=== PATIENT | female | born 1975 | race Caucasian/White ===

== ENCOUNTER 2016-11-30 20:19 | Inpatient (IN) | payer MEDICARE, OTHER ==
[~2016-11-30] VITALS: Ht 170.2 cm; Wt 119.1 kg
[2016-11-30 21:57] LABS: ADD SCAN DIFF NO
[2016-11-30 21:58] LABS: ABNORMAL IP MESSAGE 1; HEMATOCRIT 42.7 % (37.0-47.0); HEMOGLOBIN 13.4 g/dl (12.0-16.0); MEAN CORPUSCULAR HEMOGLOBIN 28.5 pg (29.0-33.0); MEAN CORPUSCULAR HGB CONC 31.4 g/dl (32.0-37.0); MEAN CORPUSCULAR VOLUME 90.9 fl (82.0-101.0); PLATELET COUNT 579 10^3/UL (140-415); RED CELL DISTRIBUTION WIDTH 14.5 % (11.5-14.5); WHITE BLOOD COUNT 19.2 10^3/ul (4.8-10.8)
[2016-11-30 22:14] LABS: INR 0.89; PT RATIO 0.9
[2016-11-30 22:15] LABS: PARTIAL THROMBOPLASTIN TIME 27.9 Sec (25.0-35.0)
[2016-11-30 22:24] LABS: LYMPHOCYTES # 11.1 10^3/ul (0.8-2.9); MONOCYTE # 0.8 10^3/ul (0.3-0.9); NEUTROPHIL # 7.3 10^3/ul (1.6-7.5)
[2016-11-30 22:26] LABS: ALANINE AMINOTRANSFERASE 32 IU/L (13-69); ALBUMIN 4.4 g/dl (3.3-4.9); ALBUMIN/GLOBULIN RATIO 1.41; ALKALINE PHOSPHATASE 108 IU/L (42-121); ANION GAP 14 (8-16); ASPARTATE AMINO TRANSFERASE 22 IU/L (15-46); BILIRUBIN,INDIRECT 0.1 mg/dl (0-1.1); BILIRUBIN,TOTAL 0.1 mg/dl (0.2-1.3); BLOOD UREA NITROGEN 14 mg/dl (7-20); CALCIUM 9.7 mg/dl (8.4-10.2); CARBON DIOXIDE 36 mmol/L (21-31); CHLORIDE 95 mmol/L (97-110); CREATININE 0.68 mg/dl (0.44-1.00); GLUCOSE 76 mg/dl (70-220); POTASSIUM 3.3 mmol/L (3.5-5.1); SODIUM 142 mmol/L (135-144); TOTAL PROTEIN 7.5 g/dl (6.1-8.1)
[2016-11-30 22:45] LABS: TROPONIN-I < 0.012 ng/ml (0.00-0.12)
--- NOTE | 2016-11-30 22:45 | RADRPT ---
PROCEDURE: XR Chest AP portable CLINICAL INDICATION: Possible sepsis TECHNIQUE: An AP portable radiograph of the chest was submitted. COMPARISON: 05/15/2016 FINDINGS: Support Hardware: None Cardiovascular: The heart size is decreased is now normal with the pulmonary vasculature unremarkabl e. Lung Vazquez: The lung vazquez appear clear with no nodule, alveolar infiltrate, or interstitial promi nence evident. Pleural Spaces: No pneumothorax or pleural effusion is identified. Osseous Structures: The osseous structures appear intact. Soft Tissues: The soft tissues appear generous. IMPRESSION: 1. Since previous study, the heart size is decreased and is now normal with the pulmonary vasculatu re unremarkable. 2. The focal right upper lobe infiltrate is resolved of the lung vazquez now clear. Physician Kelsy Date Time Electronically viewed and signed by Philippe Patterson Physician on 11/30/2016 22:45 RH/
[2016-11-30] MEDS ORDERED: ONDANSETRON 4 MG INJ IV STA (22:55)
[2016-11-30] MEDS ORDERED: morphine 4 MG/ML VIAL IV STA (22:55)
[2016-12-01 00:13] LABS: ADD UMIC YES; UR BILIRUBIN (Dip) NEGATIVE (NEGATIVE); UR BLOOD (Dip) NEGATIVE (NEGATIVE); UR CLARITY CLEAR (CLEAR); UR COLOR YELLOW (YELLOW); UR GLUCOSE (Dip) NEGATIVE (NEGATIVE); UR KETONES (Dip) TRACE (NEGATIVE); UR LEUKOCYTE ESTERASE (Dip) NEGATIVE (NEGATIVE); UR NITRITE (Dip) POSITIVE (NEGATIVE); UR TOTAL PROTEIN (Dip) TRACE (NEGATIVE); UR UROBILINOGEN (Dip) 0.2 E.U./dL (0.1-1.0)
[2016-12-01] MEDS ORDERED: ENOX40DI14 SC (00:16)
[2016-12-01] MEDS ORDERED: PANT40TA4 PO (00:16)
[2016-12-01] MEDS ORDERED: HYDR2TAB15 PO (00:16)
[2016-12-01] MEDS ORDERED: ASPI325T4 PO (00:16)
[2016-12-01] MEDS ORDERED: METO25TA4 PO (00:16)
[2016-12-01] MEDS ORDERED: HYDR-906 PO (00:16)
[2016-12-01] MEDS ORDERED: LEVE100018 PO (00:16)
--- NOTE | 2016-12-01 00:17 | ERA ---
ER Documentation Chief Complaint Date/Time DATE: 12/01/16 TIME: 00:16 Chief Complaint pt referred from pcp for lab eval high wbc's HPI 41-year-old female referred by Dr. Guerrero showed elevated white count. No nausea no vomiting no chills. Patient says she has a burning on urination. No other current complaints. ROS All systems reviewed and are negative except as per history of present illness. Medications Home Meds No Active Prescriptions or Reported Meds Allergies Allergies: Coded Allergies: Sulfa (Sulfonamide Antibiotics) (Unverified Allergy, Unknown, rash/hives, 11/30/16) penicillin V (Unverified Allergy, Unknown, rash/ hives, 11/30/16) sulfamethoxazole (Unverified Allergy, Unknown, rash/hives, 11/30/16) tetracycline (Unverified Allergy, Unknown, rash/hives, 11/30/16) trimethoprim (Unverified Allergy, Unknown, rash/hives, 11/30/16) PMhx/Soc History of Surgery: Yes (cholecystectomy, splenectomy) Anesthesia Reaction: No Hx Neurological Disorder: Yes (Seizure) Hx Respiratory Disorders: Yes (asthma) Hx Cardiac Disorders: Yes (HTN) Hx Psychiatric Problems: Yes (Depression, anxiety, schizoprenia) Hx Alcohol Use: No Hx Substance Use: No (marijuana ) Hx Tobacco Use: No Smoking Status: Never smoker Physical Exam Vitals Vital Signs Date Time Temp Pulse Resp B/P Pulse Ox O2 Delivery O2 Flow Rate FiO2 11/30/16 23:26 86 17 130/75 96 Nasal Cannula 11/30/16 20:57 98.6 81 17 119/85 96 Physical Exam Const: [] Head: Atraumatic Eyes: Normal Conjunctiva ENT: Normal External Ears, Nose and Mouth. Neck: Full range of motion..~ No meningismus. Resp: Clear to auscultation bilaterally Cardio: Regular rate and rhythm, no murmurs Abd: Soft, non tender, non distended. Normal bowel sounds Skin: No petechiae or rashes Back: No midline or flank tenderness Ext: No cyanosis, or edema Neur: Awake and alert Psych: Normal Mood and Affect Result Diagram: 11/30/16212911/30/162129 Results 24 hrs Laboratory Tests Test 11/30/16 21:30 11/30/16 23:45 White Blood Count 19.210^3/ul Red Blood Count 4.7010^6/ul Hemoglobin 13.4g/dl Hematocrit 42.7% Mean Corpuscular Volume 90.9fl Mean Corpuscular Hemoglobin 28.5pg Mean Corpuscular Hemoglobin Concent 31.4g/dl Red Cell Distribution Width 14.5% Platelet Count 48608^3/UL Mean Platelet Volume 10.0fl Neutrophils % 38.0% Lymphocytes % 58.0% Monocytes % 4.0% Neutrophils # 7.310^3/ul Lymphocytes # 11.110^3/ul Monocytes # 0.810^3/ul Prothrombin Time 12.0Sec Prothrombin Time Ratio 0.9 INR International Normalized Ratio 0.89 Activated Partial Thromboplast Time 27.9Sec Sodium Level 142mmol/L Potassium Level 3.3mmol/L Chloride Level 95mmol/L Carbon Dioxide Level 36mmol/L Anion Gap 14 Blood Urea Nitrogen 14mg/dl Creatinine 0.68mg/dl Glucose Level 76mg/dl Lactic Acid Level 1.7mmol/L Calcium Level 9.7mg/dl Total Bilirubin 0.1mg/dl Direct Bilirubin 0.00mg/dl Indirect Bilirubin 0.1mg/dl Aspartate Amino Transf (AST/SGOT) 22IU/L Alanine Aminotransferase (ALT/SGPT) 32IU/L Alkaline Phosphatase 108IU/L Troponin I < 0.012ng/ml Total Protein 7.5g/dl Albumin 4.4g/dl Globulin 3.10g/dl Albumin/Globulin Ratio 1.41 Urine Color YELLOW Urine Clarity CLEAR Urine pH 6.5 Urine Specific Frostproof 1.010 Urine Ketones TRACE Urine Nitrite POSITIVE Urine Bilirubin NEGATIVE Urine Urobilinogen 0.2 E.U./dL Urine Leukocyte Esterase NEGATIVE Urine Microscopic RBC Pending Urine Microscopic WBC Pending Urine Hemoglobin NEGATIVE Urine Glucose NEGATIVE% Urine Total Protein TRACE Current Medications Medications (Trade) Dose Ordered Sig/Sarita Route PRN Reason Start Time Stop Time Status Last Admin Dose Admin Morphine Sulfate (morphine) 4 mg ONCE STAT IV 11/30/16 22:55 11/30/16 22:56 DC 11/30/16 23:04 Ondansetron HCl (Zofran Inj) 4 mg ONCE STAT IV 11/30/16 22:55 11/30/16 22:56 DC 11/30/16 23:04 Procedures/MDM EKG: Rate/Rhythm: [Normal Sinus Rhythm] QRS, ST, T-waves: [No changes consistent w/ acute ischemia] Impression: [No evidence of ischemia or arrhythmia] Chest X-ray 1V Interpreted by me: Soft Tissue: No acute abnormalities Bones: No acute abnormalities Mediastinum/Cardiac Silhouette/Lungs: [No acute abnormalities] Blood and urine cultures pending Medical decision-makin-year-old female with UTI and leukocytosis. Lactic acid is negative. Patient started on Levaquin. Admitted to Dr. Mendoza Departure Diagnosis: Primary Impression: Urinary tract infection Qualified Code: N30.00 - Acute cystitis without hematuria Additional Impression: Leukocytosis Qualified Code: D72.829 - Leukocytosis, unspecified type Condition: Serious YA PEDROZA Dec 01, 2016 00:17
[2016-12-01] MEDS ORDERED: LEVOFLOXACIN 500MG/D5W (PMX) 100 ML IVPB ONE (00:30)
[2016-12-01 00:33] LABS: UR BACTERIA MANY; UR SQUAMOUS EPITHELIAL CELL MODERATE; URINE RBCS 0-2 /HPF (0)
[2016-12-01 01:45] VITALS: BP 100/62; RESP 20
[2016-12-01 02:07] VITALS: Ht 170.2 cm; Wt 119.1 kg
[2016-12-01] MEDS ORDERED: HYDROCODONE/APAP (5/325) TAB PO PRN (03:00)
[2016-12-01] MEDS ORDERED: CEFTRIAXONE 1 GM/50 ML (PMX) 50 ML IVPB SCH (03:00)
[2016-12-01] MEDS ORDERED: ONDANSETRON 4 MG INJ IV PRN ×2 (03:00→19:00)
[2016-12-01] MEDS: SOD CHLORIDE 0.45% 1,000 ML IV SCH ×2 (03:07→23:00)
[2016-12-01] MEDS: HYDROmorphONE 1 MG/ML SYG IV PRN ×5 (03:08→22:23)
[2016-12-01 05:32] VITALS: BP 122/61; PULSE 77; RESP 18
[2016-12-01 08:16] VITALS: BP 116/77; RESP 18
--- NOTE | 2016-12-01 14:07 | HP ---
DATE OF ADMISSION: 12/01/2016 CHIEF COMPLAINT: Leucocytosis and generalized weakness. HISTORY OF PRESENT ILLNESS: The patient is a 41-year-old female with history of bipolar disorder, a sthma, history of rhabdomyolysis, non-ST elevation myocardial infarction and right foot drop and imp airments in self-care and mobility. The patient was recuperating in a nursing facility and noted to have generalized weakness and leukocytosis on routine labs and patient was sent for evaluation to [facility] [place] [facility] Room. The patient was noted to have white blood cells elevated to 19,2 00. Urinalysis was indicative of urinary tract infection. The patient was diagnosed with a urinary tract infection, was given Rocephin and Levaquin in the emergency room and admitted for further shelby luation and management. PAST MEDICAL HISTORY: Per HPI. PAST SURGICAL HISTORY: Status post cholecystectomy, status post splenectomy. FAMILY HISTORY: Noncontributory. SOCIAL HISTORY: Patient lives at a nursing facility. Currently does not abuse alcohol, drugs or to bacco. ALLERGIES: Patient is allergic to: 1. SULFONAMIDE ANTIBIOTICS. 2. PENICILLIN. 3. TETRACYCLINE. 4. BACTRIM. MEDICATIONS: Her current medication list is not available. Nursing facility is contacted to send joel lee medication list. REVIEW OF SYSTEMS: A 12-point review of systems is negative unless what mentioned in the HPI. The patient denies any nausea, vomiting. Denies any chest pain, denies any shortness of breath. PHYSICAL ASSESSMENT: GENERAL: Well-developed, obese female currently is lethargic, but easily arousable, alert and orien renetta x3. VITAL SIGNS: Temperature is 98.0, pulse is 95, blood pressure 116/77, respiratory rate 18, oxygen s aturation 96% on room air. HEENT: Head is atraumatic, normocephalic. Pupils equal, round, reactive to light and accommodation . Oral mucosa is pink and moist. NECK: Supple, no cervical lymphadenopathy, no thyromegaly. CHEST: Lungs clear bilaterally. There is no rhonchi, wheezes, rales noted. CARDIOVASCULAR: Normal S1, S2. No murmurs, gallops, clicks, rubs noted. ABDOMEN: Protuberant, soft, nondistended, nontender. Bowel sounds present. No guarding. EXTREMITIES: No edema, clubbing, cyanosis. Pulses equal bilaterally 2+. SKIN: There is no rash, petechiae noted. NEUROLOGIC: Patient is awake, alert and oriented x3. No focal deficits noted. LABORATORY DATA: On admission, CBC: White blood cells 19.2, hemoglobin 13.3, hematocrit 42.7, plat elets 579. Chemistry: Sodium is 142, potassium 3.3, chloride 95, carbon dioxide 36, anion gap 14, BUN 14, creatinine 0.68, glucose 76. Lactic acid is 1.7, AST is 22, ALT is 32, alkaline phosphate i s 108. Troponin is less than 0.012. PT is 12.0, INR is 0.89, APTT is 27.9. ASSESSMENT AND PLAN: 1. Urinary tract infection per UA, continue antibiotics. Follow up on urine culture. We will obta in urine and blood cultures if not done in the emergency room. 2. Systemic inflammatory response syndrome with leukocytosis secondary to urinary tract infection. 3. Bipolar disorder. 4. History of asthma. 5. History of right foot drop, patient currently was able to ambulate using walker at the [facility]. Patient also had a chest x-ray which improved compared to previous studies. Heart size is decreased and now normal with the pulmonary vasculature unremarkable. The focal right upper lobe i nfiltrate is resolved and now clear. I am going to continue patient on Levaquin. Follow up on urin e culture, Lovenox for deep venous thrombosis prophylaxis and Pepcid for peptic ulcer disease prophy laxis. We will obtain home medication list and resume the patient's home medication. Further recom mendations based on clinical course. Plan of care discussed with Dr. Walden. Dictated By: VINICIO HOUSTON INSURANCE AND FINANCIAL SERVICES AGENT for PRANEETH WALDEN MD SR/NTS Conf#: [id number] DID#: [id number]
[2016-12-01] MEDS ORDERED: CYAN100080 PO (15:44)
[2016-12-01] MEDS ORDERED: OMEP40CA6 PO (15:45)
[2016-12-01] MEDS ORDERED: MORP60TA37 PO (15:48)
[2016-12-01] MEDS ORDERED: MORP-58 PO (15:50)
[2016-12-01] MEDS ORDERED: BUSP15TA3 PO (15:55)
[2016-12-01] MEDS ORDERED: ESCI20TA PO (15:56)
[2016-12-01] MEDS ORDERED: FURO40SO PO (15:56)
[2016-12-01] MEDS ORDERED: POTA20TA96 PO (15:58)
[2016-12-01] MEDS ORDERED: ONDA-43 PO (16:00)
[2016-12-01] MEDS ORDERED: RISP4TAB2 PO (18:37)
[2016-12-01] MEDS: LEVETIRACETAM 500 MG TAB PO SCH (20:11)
[2016-12-01] MEDS: morphine (ER) 30 MG TAB PO SCH (20:12)
[2016-12-01] MEDS: METOPROLOL 25 MG TAB PO SCH (20:12)
[2016-12-01 20:23] VITALS: BP 130/67; RESP 20
[2016-12-01] MEDS: ALPRAZOLAM 0.5 MG TAB PO PRN (21:00)
[2016-12-01] MEDS ORDERED: LEVETIRACETAM 500 MG TAB PO SCH (21:00)
[2016-12-02] MEDS: LEVOFLOXACIN 500MG/D5W (PMX) 100 ML IVPB SCH (00:31)
[2016-12-02] MEDS: HYDROmorphONE 1 MG/ML SYG IV PRN ×5 (02:55→23:24)
[2016-12-02 05:53] LABS: ADD SCAN DIFF NO
[2016-12-02 05:59] LABS: ABNORMAL IP MESSAGE 1; HEMATOCRIT 41.3 % (37.0-47.0); HEMOGLOBIN 12.8 g/dl (12.0-16.0); MEAN CORPUSCULAR HEMOGLOBIN 28.3 pg (29.0-33.0); MEAN CORPUSCULAR VOLUME 91.2 fl (82.0-101.0); MEAN PLATELET VOLUME 10.3 fl (7.4-10.4); PLATELET COUNT 566 10^3/UL (140-415); RED BLOOD COUNT 4.53 10^6/ul (4.20-5.40); RED CELL DISTRIBUTION WIDTH 14.6 % (11.5-14.5); WHITE BLOOD COUNT 17.6 10^3/ul (4.8-10.8)
[2016-12-02 06:36] LABS: CREATININE 0.54 mg/dl (0.44-1.00); POTASSIUM 3.6 mmol/L (3.5-5.1)
[2016-12-02 08:09] VITALS: BP 115/60; RESP 20
[2016-12-02] MEDS: ASPIRIN 325 MG TAB PO SCH (09:05)
[2016-12-02] MEDS: LEVETIRACETAM 500 MG TAB PO SCH ×2 (09:05→20:58)
[2016-12-02] MEDS: morphine (ER) 30 MG TAB PO SCH ×2 (09:06→21:00)
[2016-12-02] MEDS: FAMOTIDINE 20 MG TAB PO SCH (09:06)
[2016-12-02] MEDS: METOPROLOL 25 MG TAB PO SCH ×2 (09:07→21:01)
[2016-12-02] MEDS: ENOXAPARIN 30 MG/0.3 ML SYG SC SCH (09:28)
[2016-12-02 10:23] LABS: EOSINOPHILS # 0.5 10^3/ul (0.0-0.5); MONOCYTE # 1.4 10^3/ul (0.3-0.9); NEUTROPHIL # 9.7 10^3/ul (1.6-7.5)
--- NOTE | 2016-12-02 15:25 | PN ---
Date/Time of Note Date/Time of Note DATE: 12/02/16 TIME: 15:18 Assessment/Plan VTE Prophylaxis VTE Prophylaxis Intervention: SCD's Lines/Catheters IV Catheter Type (from Nrs): Saline Lock Assessment/Plan Chief Complaint/Hosp Course Patient's complains of generalized pain, denies any nausea vomiting. ASSESSMENT AND PLAN: - Urinary tract infection per UA, continue Levaquin, follow up on final urine culture. - Systemic inflammatory response syndrome with leukocytosis secondary to urinary tract infection. - Seizure disorder continue Keppra. - Bipolar disorder. Continue BuSpar. Further recommendations based on clinical course. Plan of care discussed with Dr. Walden. Problems: Exam/Review of Systems Vital Signs Vitals Vital Signs Date Time Temp Pulse Resp B/P Pulse Ox O2 Delivery O2 Flow Rate FiO2 12/02/16 08:09 98.2 71 20 115/60 98 12/01/16 05:32 Room Air 12/01/16 00:50 2.0 Intake and Output 12/01/16 12/01/16 12/02/16 15:00 23:00 07:00 Intake Total 1500 ml 2200 ml Output Total 1100 ml 2000 ml Balance 400 ml 200 ml Exam Constitutional: alert, oriented Head: normocephalic Neck: supple Respiratory: normal air movement Cardiovascular: nl pulses Gastrointestinal: non-tender, soft Musculoskeletal: nl gait and stance Extremities: normal pulses Results Result Diagram: 12/02/16 0445 12/02/16 0445 Results 24 hrs Laboratory Tests Test 12/02/16 04:45 White Blood Count 17.6 H Red Blood Count 4.53 Hemoglobin 12.8 Hematocrit 41.3 Mean Corpuscular Volume 91.2 Mean Corpuscular Hemoglobin 28.3 L Mean Corpuscular Hemoglobin Concent 31.0 L Red Cell Distribution Width 14.6 H Platelet Count 566 H Mean Platelet Volume 10.3 Neutrophils % 55.0 Lymphocytes % 34.0 Monocytes % 8.0 Eosinophils % 3.0 Neutrophils # 9.7 H Lymphocytes # 6.0 H Monocytes # 1.4 H Eosinophils # 0.5 Sodium Level 143 Potassium Level 3.6 Chloride Level 104 Carbon Dioxide Level 31 Anion Gap 12 Blood Urea Nitrogen 10 Creatinine 0.54 Glucose Level 91 Calcium Level 9.0 Magnesium Level 2.0 Medications Medications Current Medications Sodium Chloride (1/2 NS) 1,000 ml @ 50 mls/hr Q20H IV Last administered on 03:07; Admin Dose 50 MLS/HR; Start 12/01/16 at 03:00 Hydromorphone HCl (Dilaudid) 0.5 mg Q4H PRN IV PAIN Last administered on 11:14; Admin Dose 0.5 MG; Start 12/01/16 at 03:00 Acetaminophen/ Hydrocodone Bitart 1 tab 1 tab Q4H PRN PO MODERATE PAIN LEVEL 4- 6 Last administered on 12/01/16 05:30; Admin Dose 1 TAB; Start 12/01/16 at 03: 00 Levofloxacin/ Dextrose (Levaquin 500mg/ D5W 100 ml (Pmx)) 100 ml @ 100 mls/hr Q24H IVPB Last administered on 12/02/16 00:31; Admin Dose 100 MLS/HR; Start at 01:00 Enoxaparin Sodium (Lovenox) 30 mg DAILY SC Last administered on 12/02/16 09:28 ; Admin Dose 30 MG; Start 12/02/16 at 09:00 Famotidine (Pepcid) 20 mg DAILY PO Last administered on 12/02/16 09:06; Admin Dose 20 MG; Start 12/02/16 at 09:00 Levetiracetam (Keppra) 1,500 mg BID PO Last administered on 12/02/16 09:05; Admin Dose 1,500 MG; Start 12/01/16 at 21:00 Aspirin (Aspirin) 325 mg DAILY PO Last administered on 12/02/16 09:05; Admin Dose 325 MG; Start 12/02/16 at 09:00 Metoprolol Tartrate (Lopressor) 12.5 mg BID PO Last administered on 12/02/16 09:07; Admin Dose 12.5 MG; Start 12/01/16 at 21:00 Morphine Sulfate (Ms Contin (Er)) 60 mg BID PO Last administered on 12/02/16 09:06; Admin Dose 60 MG; Start 12/01/16 at 21:00 Ondansetron HCl (Zofran Inj) 4 mg Q4H PRN IV NAUSEA AND/OR VOMITING; Start at 19:00 Alprazolam (Xanax) 0.5 mg HS PRN PO ANXIETY Last administered on 12/01/16t 21: 00; Admin Dose 0.5 MG; Start 12/01/16 at 19:00 VINICIO HOUSTON Dec 02, 2016 15:25
[2016-12-02] MEDS: BUSPIRONE 10 MG TAB PO SCH ×2 (16:45→20:59)
[2016-12-02] MEDS: ESCITALOPRAM 10 MG TAB PO SCH (16:46)
[2016-12-02] MEDS: SOD CHLORIDE 0.45% 1,000 ML IV SCH ×2 (19:04→19:55)
[2016-12-02] MEDS ORDERED: BUSPIRONE 5 MG TAB PO SCH (21:00)
[2016-12-02 21:05] VITALS: BP 127/75; RESP 20
[2016-12-02] MEDS: ALPRAZOLAM 0.5 MG TAB PO PRN (21:33)
[2016-12-03] MEDS: LEVOFLOXACIN 500MG/D5W (PMX) 100 ML IVPB SCH (00:48)
[2016-12-03] MEDS: HYDROmorphONE 1 MG/ML SYG IV PRN ×6 (03:14→23:17)
[2016-12-03 05:11] LABS: ADD SCAN DIFF NO
[2016-12-03 05:21] LABS: ABNORMAL IP MESSAGE 1; BASOPHIL # 0.1 10^3/ul (0.0-0.1); BASOPHILS % 0.4 % (0.0-2.0); EOSINOPHILS # 0.4 10^3/ul (0.0-0.5); EOSINOPHILS % 1.9 % (0.0-7.0); HEMATOCRIT 40.3 % (37.0-47.0); HEMOGLOBIN 12.8 g/dl (12.0-16.0); LYMPHOCYTES # 5.1 10^3/ul (0.8-2.9); LYMPHOCYTES % 27.8 % (15.0-51.0); MEAN CORPUSCULAR HEMOGLOBIN 28.7 pg (29.0-33.0); MEAN CORPUSCULAR HGB CONC 31.8 g/dl (32.0-37.0); MEAN CORPUSCULAR VOLUME 90.4 fl (82.0-101.0); MONOCYTE # 1.4 10^3/ul (0.3-0.9); MONOCYTES % 7.8 % (0.0-11.0); NEUTROPHIL # 11.2 10^3/ul (1.6-7.5); NEUTROPHILS % 61.7 % (39.0-77.0); NUCLEATED RED BLOOD CELLS% 0.1 /100WBC (0.0-0.0); PLATELET COUNT 583 10^3/UL (140-415); RED BLOOD COUNT 4.46 10^6/ul (4.20-5.40); RED CELL DISTRIBUTION WIDTH 14.4 % (11.5-14.5); WHITE BLOOD COUNT 18.2 10^3/ul (4.8-10.8)
[2016-12-03 05:52] LABS: CALCIUM 8.9 mg/dl (8.4-10.2); CREATININE 0.61 mg/dl (0.44-1.00)
[2016-12-03 08:33] VITALS: BP 112/57; RESP 18
[2016-12-03] MEDS: BUSPIRONE 10 MG TAB PO SCH ×3 (08:52→20:54)
[2016-12-03] MEDS: LEVETIRACETAM 500 MG TAB PO SCH ×2 (08:52→20:53)
[2016-12-03] MEDS: ASPIRIN 325 MG TAB PO SCH (08:52)
[2016-12-03] MEDS: ESCITALOPRAM 10 MG TAB PO SCH (08:53)
[2016-12-03] MEDS: METOPROLOL 25 MG TAB PO SCH ×2 (08:54→20:53)
[2016-12-03] MEDS: morphine (ER) 30 MG TAB PO SCH ×2 (08:54→20:54)
[2016-12-03] MEDS: FAMOTIDINE 20 MG TAB PO SCH (08:54)
[2016-12-03] MEDS: ENOXAPARIN 30 MG/0.3 ML SYG SC SCH (09:21)
[2016-12-03] MEDS: SOD CHLORIDE 0.45% 1,000 ML IV SCH (14:00)
--- NOTE | 2016-12-03 15:08 | PN ---
Date/Time of Note Date/Time of Note DATE: 12/03/16 TIME: 15:02 Assessment/Plan VTE Prophylaxis VTE Prophylaxis Intervention: other Lines/Catheters [facility] Peripheral IV Urinary Cath still in place: No Assessment/Plan Assessment/Plan - Urinary tract infection per UA, continue Levaquin, follow up on final urine culture. - Systemic inflammatory response syndrome with leukocytosis secondary to urinary tract infection. - Seizure disorder continue Keppra. - seizure precaution - Bipolar disorder. Continue BuSpar. Further recommendations based on clinical course. Plan of care discussed with Dr. Walden. Subjective 24 Hr Interval Summary Free Text/Dictation afebrile, feels better, possible discharge tomorrow. dw staff Constitutional: improved Cardiovascular: no complaints Gastrointestinal: no complaints Genitourinary: no complaints Musculoskeletal: no complaints Exam/Review of Systems Vital Signs Vitals Vital Signs Date Time Temp Pulse Resp B/P Pulse Ox O2 Delivery O2 Flow Rate FiO2 12/03/16 08:33 98.2 60 18 112/57 96 12/01/16 05:32 Room Air 12/01/16 00:50 2.0 Intake and Output 12/02/16 12/02/16 12/03/16 15:00 23:00 07:00 Intake Total 1650 ml 1220 ml Output Total 1500 ml 1400 ml Balance 150 ml -180 ml Exam Constitutional: alert Respiratory: clear to auscultation, normal air movement Cardiovascular: nl pulses, regular rate and rhythm Gastrointestinal: non-tender, soft Musculoskeletal: nl extremities to inspection Neurological: nl speech Results Result Diagram: 12/03/16 0429 12/03/16 0429 Results 24 hrs Laboratory Tests Test 12/03/16 04:29 White Blood Count 18.2 H Red Blood Count 4.46 Hemoglobin 12.8 Hematocrit 40.3 Mean Corpuscular Volume 90.4 Mean Corpuscular Hemoglobin 28.7 L Mean Corpuscular Hemoglobin Concent 31.8 L Red Cell Distribution Width 14.4 Platelet Count 583 H Mean Platelet Volume 10.0 Neutrophils % 61.7 Lymphocytes % 27.8 Monocytes % 7.8 Eosinophils % 1.9 Basophils % 0.4 Nucleated Red Blood Cells % 0.1 H Neutrophils # 11.2 H Lymphocytes # 5.1 H Monocytes # 1.4 H Eosinophils # 0.4 Basophils # 0.1 Nucleated Red Blood Cells # 0.0 Sodium Level 144 Potassium Level 4.0 Chloride Level 107 Carbon Dioxide Level 29 Anion Gap 12 Blood Urea Nitrogen 11 Creatinine 0.61 Glucose Level 94 Calcium Level 8.9 Medications Medications Current Medications Sodium Chloride (1/2 NS) 1,000 ml @ 50 mls/hr Q20H IV Last administered on 19:55; Admin Dose 50 MLS/HR; Start 12/01/16 at 03:00 Hydromorphone HCl (Dilaudid) 0.5 mg Q4H PRN IV PAIN Last administered on 11:15; Admin Dose 0.5 MG; Start 12/01/16 at 03:00 Acetaminophen/ Hydrocodone Bitart 1 tab 1 tab Q4H PRN PO MODERATE PAIN LEVEL 4- 6 Last administered on 12/01/16 05:30; Admin Dose 1 TAB; Start 12/01/16 at 03: 00 Levofloxacin/ Dextrose (Levaquin 500mg/ D5W 100 ml (Pmx)) 100 ml @ 100 mls/hr Q24H IVPB Last administered on 12/03/16 00:48; Admin Dose 100 MLS/HR; Start at 01:00 Enoxaparin Sodium (Lovenox) 30 mg DAILY SC Last administered on 12/03/16 09:21 ; Admin Dose 30 MG; Start 12/02/16 at 09:00 Famotidine (Pepcid) 20 mg DAILY PO Last administered on 12/03/16 08:54; Admin Dose 20 MG; Start 12/02/16 at 09:00 Levetiracetam (Keppra) 1,500 mg BID PO Last administered on 12/03/16 08:52; Admin Dose 1,500 MG; Start 12/01/16 at 21:00 Aspirin (Aspirin) 325 mg DAILY PO Last administered on 12/03/16 08:52; Admin Dose 325 MG; Start 12/02/16 at 09:00 Metoprolol Tartrate (Lopressor) 12.5 mg BID PO Last administered on 12/03/16 08:54; Admin Dose 12.5 MG; Start 12/01/16 at 21:00 Morphine Sulfate (Ms Contin (Er)) 60 mg BID PO Last administered on 12/03/16 08:54; Admin Dose 60 MG; Start 12/01/16 at 21:00 Ondansetron HCl (Zofran Inj) 4 mg Q4H PRN IV NAUSEA AND/OR VOMITING; Start at 19:00 Alprazolam (Xanax) 0.5 mg HS PRN PO ANXIETY Last administered on 12/02/16 21: 33; Admin Dose 0.5 MG; Start 12/01/16 at 19:00 Escitalopram Oxalate (Lexapro) 20 mg DAILY PO Last administered on 12/03/16 08 :53; Admin Dose 20 MG; Start 12/02/16 at 16:00 Buspirone HCl (Buspar) 20 mg TID PO Last administered on 12/03/16 12:45; Admin Dose 20 MG; Start 12/02/16 at 16:14 ANABELLE RAGLAND Dec 03, 2016 15:08
[2016-12-03] MEDS: ALPRAZOLAM 0.5 MG TAB PO PRN (20:56)
[2016-12-03 21:14] VITALS: BP 132/77; RESP 20
[2016-12-04] MEDS: LEVOFLOXACIN 500MG/D5W (PMX) 100 ML IVPB SCH (01:23)
[2016-12-04] MEDS: HYDROmorphONE 1 MG/ML SYG IV PRN ×5 (03:16→19:43)
[2016-12-04 05:04] LABS: ADD SCAN DIFF NO
[2016-12-04 05:29] LABS: ABNORMAL IP MESSAGE 1; HEMATOCRIT 39.7 % (37.0-47.0); HEMOGLOBIN 12.8 g/dl (12.0-16.0); MEAN CORPUSCULAR HGB CONC 32.2 g/dl (32.0-37.0); MEAN CORPUSCULAR VOLUME 89.8 fl (82.0-101.0); MEAN PLATELET VOLUME 10.1 fl (7.4-10.4); PLATELET COUNT 590 10^3/UL (140-415); RED BLOOD COUNT 4.42 10^6/ul (4.20-5.40); RED CELL DISTRIBUTION WIDTH 14.3 % (11.5-14.5); WHITE BLOOD COUNT 18.8 10^3/ul (4.8-10.8)
[2016-12-04 05:44] LABS: CALCIUM 9.1 mg/dl (8.4-10.2); CREATININE 0.63 mg/dl (0.44-1.00); POTASSIUM 4.7 mmol/L (3.5-5.1)
[2016-12-04] MEDS: SOD CHLORIDE 0.45% 1,000 ML IV SCH (07:00)
[2016-12-04 07:25] VITALS: BP 140/83; RESP 20
[2016-12-04 08:04] LABS: BASOPHIL # 0.2 10^3/ul (0.0-0.1); EOSINOPHILS # 0.8 10^3/ul (0.0-0.5); LYMPHOCYTES # 6.4 10^3/ul (0.8-2.9); MONOCYTE # 1.7 10^3/ul (0.3-0.9); NEUTROPHIL # 9.8 10^3/ul (1.6-7.5)
[2016-12-04] MEDS: ASPIRIN 325 MG TAB PO SCH (09:06)
[2016-12-04] MEDS: ESCITALOPRAM 10 MG TAB PO SCH (09:07)
[2016-12-04] MEDS: LEVETIRACETAM 500 MG TAB PO SCH ×2 (09:07→20:22)
[2016-12-04] MEDS: BUSPIRONE 10 MG TAB PO SCH ×3 (09:07→20:21)
[2016-12-04] MEDS: FAMOTIDINE 20 MG TAB PO SCH (09:07)
[2016-12-04] MEDS: morphine (ER) 30 MG TAB PO SCH ×2 (09:07→20:21)
[2016-12-04] MEDS: METOPROLOL 25 MG TAB PO SCH ×2 (09:08→20:21)
[2016-12-04] MEDS: ENOXAPARIN 30 MG/0.3 ML SYG SC SCH (09:12)
[2016-12-04 19:23] VITALS: BP 136/76; RESP 18
[2016-12-04] MEDS: ALPRAZOLAM 0.5 MG TAB PO PRN (20:23)
--- NOTE | 2016-12-05 07:02 | DS ---
DATE OF ADMISSION: 12/02/2016 DATE OF DISCHARGE: 12/04/2016 FINAL DIAGNOSES: 1. Urinary tract infection. 2. Systemic inflammatory response syndrome with leukocytosis secondary to urinary tract infection. 3. Seizure disorder. 4. Bipolar disorder. 5. History of right foot drop. BRIEF HISTORY: The patient is a 41-year-old female with history of bipolar disorder, asthma, histor y of rhabdomyolsis, non-ST elevation myocardial infarction, and right foot drop with impairment in s elf-care and mobility. The patient was recuperating at longterm facility and was noted to fisher ve increased generalized weakness and leukocytosis. On routine labs, the patient's white blood cell s were elevated from 19,000 to 100. The patient was sent for evaluation to [facility]. On evaluation, the patient was noted to have urinary tract infection with urine culture posit williams for E. coli. The patient was given Rocephin and Levaquin. The patient's condition improved. T he patient did not have any fever. The patient was discharged to longterm facility. CONDITION ON DISCHARGE: Hemodynamically stable. ACTIVITY: As patient tolerates. DIET: 2 g sodium, low fat, low cholesterol diet. DISCHARGE MEDICATIONS: 1. Xanax at bedtime p.r.n. for insomnia. 2. Aspirin daily. 3. BuSpar. 4. Lovenox, 5. Lexapro. 6. Pepcid. 7. Taft p.r.n. for pain. 8. Dilaudid 1 mg p.o. q. 3 hours p.r.n. for pain. 9. Keppra 1500 mg p.o. b.i.d. 10. Metoprolol 12.5 mg p.o. b.i.d. 11. MS Contin 60 mg p.o. b.i.d. 12. Zofran 4 mg p.o. p.r.n. for nausea. 13. Vitamin B12. 14. Levaquin 500 mg 1 tablet p.o. daily for 4 more days. Interdisciplinary plan of care was established for this patient. Plan of care was discussed with Dr Michelle Theodore. Dictated By: VINICIO HOUSTON SPOOL FIXER for PRANEETH THEODORE MD, SR/NTS Conf#: [id number] [facility]#: [id number]
== END 2016-12-04 22:00 | DRG 690 ==
LOC: E/R 20:19 → MS1 12-01 00:15 → OBSVTOIN 12-02 15:17
PROVIDERS: ADMIT Internal Medicine; ATTEND Internal Medicine
DX: N39.0 Urinary tract infection, site not specified (principal); B96.20 Unspecified Escherichia coli [E. coli] as the cause of diseases classified elsewhere; F31.9 Bipolar disorder, unspecified; G40.909 Epilepsy, unspecified, not intractable, without status epilepticus; I25.2 Old myocardial infarction
CPT/HCPCS: 36415; 71010; 80048; 80053; 81001; 83605; 83735; 84484; 85025; 85610; 85730; 87040; 87081; 87086; 93005; 96374; 96375; G0378; J1170; J1650; J1956; J2270; J2405

== ENCOUNTER 2017-05-22 14:29 | Emergency (ER) | payer MEDICARE, OTHER ==
[~2017-05-22] VITALS: Ht 167.6 cm; Wt 110.0 kg
[~2017-05-22 14:29] MED LIST: ASPI325T4 PO; BUSP15TA3 PO; CYAN100080 PO; ENOX40DI14 SC; ESCI20TA PO; FURO40SO PO; HYDR-906 PO; HYDR2TAB36 PO; LEVE100018 PO; METO25TA4 PO; MORP-58 PO; MORP60TA37 PO; OMEP40CA6 PO; ONDA-43 PO; PANT40TA4 PO; POTA20TA96 PO; RISP4TAB2 PO
[2017-05-22 14:37] VITALS: Ht 167.6 cm; Wt 110.0 kg
[2017-05-22] MEDS ORDERED: HYDROmorphONE 1 MG/ML SYG IV STA ×2 (14:48→18:45)
[2017-05-22] MEDS ORDERED: SOD CHLORIDE 0.9% 1,000 ML IV STA (14:48)
[2017-05-22] MEDS ORDERED: ONDANSETRON 4 MG INJ IV STA (14:48)
[2017-05-22 15:13] LABS: ABNORMAL IP MESSAGE 1; HEMATOCRIT 42.9 % (37.0-47.0); HEMOGLOBIN 13.3 g/dl (12.0-16.0); MEAN CORPUSCULAR HEMOGLOBIN 27.4 pg (29.0-33.0); MEAN CORPUSCULAR VOLUME 88.5 fl (82.0-101.0); MEAN PLATELET VOLUME 9.6 fl (7.4-10.4); PLATELET COUNT 688 10^3/UL (140-415); RED BLOOD COUNT 4.85 10^6/ul (4.20-5.40); RED CELL DISTRIBUTION WIDTH 14.9 % (11.5-14.5); WHITE BLOOD COUNT 19.3 10^3/ul (4.8-10.8)
[2017-05-22 15:15] LABS: POSITIVE DIFF @See below
[2017-05-22 15:40] LABS: ALBUMIN 4.3 g/dl (3.3-4.9); ALBUMIN/GLOBULIN RATIO 1.16; CALCIUM 9.5 mg/dl (8.4-10.2); CREATININE 0.65 mg/dl (0.44-1.00); POTASSIUM 3.7 mmol/L (3.5-5.1)
[2017-05-22 15:41] LABS: EOSINOPHILS % (M) 1 % (0-7); GIANT THROMBO% (M) 1 % (0-0); MONOCYTES % (M) 2 % (0-11); PLATELET ESTIMATE INCREASED
[2017-05-22] MEDS ORDERED: IOHEXOL 300MG/ML 150 ML BTL ONE (19:55)
[2017-05-22] MEDS ORDERED: SOD CHLORIDE 0.9% 100 ML ONE (19:55)
--- NOTE | 2017-05-22 19:55 | ERD ---
ER Documentation Chief Complaint Chief Complaint MID ABD PAIN SINCE TODAY W/ DIARRHEA HPI This is a 42-year-old female who was sent by Dr. Bard tsai for evaluation.. The patient states she has had diffuse lower abdominal cramps off and on for the past 2-3 days with nausea vomiting diarrhea. The vomiting and diarrhea is nonbilious and nonbloody. The patient states she has had no fever. She said the symptoms started out very mild on day 1 and have gotten worse today. No dysuria hematuria no back pain pain is crampy with no radiation and occasional sharp pain. ROS All systems reviewed and are negative except as per history of present illness. Medications Home Meds Reported Medications Risperidone* (Risperidone*) 4 Mg Tablet, 5 MG PO BID, TAB 12/01/16 Ondansetron Hcl* (Zofran*) 4 Mg Tab, 4 MG PO Q4H Y for NAUSEA AND OR VOMITING, TAB 12/01/16 Potassium Chloride* (Potassium Chloride*) 20 Meq Tablet.er, 20 MEQ PO DAILY, TAB.SA 12/01/16 Furosemide* (Furosemide*) 40 Mg/5 Ml Solution, 40 MG PO DAILY, #150 ML 12/01/16 Escitalopram Oxalate* (Lexapro*) 20 Mg Tablet, 20 MG PO DAILY, #30 TAB 12/01/16 Buspirone Hcl* (Buspirone Hcl*) 15 Mg Tablet, 30 MG PO TID, TAB 12/01/16 Morphine Sulfate* (Oramorph SR*) 30 Mg Tablet.sa, 30 MG PO Q8, TAB.SA 12/01/16 Morphine Sulfate* (Ms Contin*) 60 Mg Tablet.sa, 60 MG PO Q12, TAB.SA 12/01/16 Omeprazole* (Omeprazole*) 40 Mg Capsule.dr, 40 MG PO DAILY, #30 CAP 12/01/16 Cyanocobalamin* (Vitamin B-12*) 1,000 Mcg Tablet.sa, 1000 MCG PO DAILY, TAB 12/01/16 Pantoprazole* (Pantoprazole*) 40 Mg Tablet.dr, 40 MG PO DAILY, TAB 12/01/16 Metoprolol Tartrate* (Lopressor*) 25 Mg Tablet, 12.5 MG PO BID, #60 TAB 12/01/16 Levetiracetam* (Keppra*) 1,000 Mg Tablet, 1000 MG PO BID, TAB 12/01/16 Hydromorphone Hcl* (Dilaudid*) Unknown Strength Tablet, 1 MG PO Q3H Y for PAIN, TAB 12/01/16 Hydrocodone/Acetaminophen ([place] 5-325 Tablet) Unknown Strength Tablet, 0 PO, TAB 12/01/16 Enoxaparin Sodium* (Lovenox*) 40 Mg/0.4 Ml Syringe, 40 MG SC DAILY, SYR 12/01/16 Aspirin* (Aspirin*) 325 Mg Tablet, 325 MG PO DAILY, TAB 12/01/16 Allergies Allergies: Coded Allergies: Sulfa (Sulfonamide Antibiotics) (Unverified Allergy, Unknown, rash/hives, 05/22/17) penicillin V (Unverified Allergy, Unknown, rash/ hives, 05/22/17) sulfamethoxazole (Unverified Allergy, Unknown, rash/hives, 05/22/17) tetracycline (Unverified Allergy, Unknown, rash/hives, 05/22/17) trimethoprim (Unverified Allergy, Unknown, rash/hives, 05/22/17) PMhx/Soc History of Surgery: Yes (splenectomy, cholecystectomy) Anesthesia Reaction: No Hx Neurological Disorder: Yes ( seizure) Hx Respiratory Disorders: Yes (asthma) Hx Cardiac Disorders: Yes (HTN) Hx Psychiatric Problems: Yes (Bipolar) Hx Alcohol Use: No Hx Substance Use: No Hx Tobacco Use: No Smoking Status: Never smoker FmHx Family History: No coronary disease Physical Exam Vitals Vital Signs Date Time Temp Pulse Resp B/P Pulse Ox O2 Delivery O2 Flow Rate FiO2 05/22/17 17:36 92 20 118/73 99 Room Air 05/22/17 14:37 99.2 109 19 121/61 96 Physical Exam Const: Well-developed, well-nourished, morbid obesity Head: Atraumatic, normocephalic Eyes: Normal Conjunctiva, PERRLA, EOMI, normal sclera, no nystagmus ENT: Normal External Ears, Nose and Mouth, moist mucus membranes. Neck: Full range of motion. No meningismus, no lymphadenopathy. Resp: Clear to auscultation bilaterally, no wheezing, rhonchi, rales Cardio: Regular rate and rhythm, no murmurs, S1 S2 present Abd: Soft, diffuse lower abdominal tenderness that is mild to moderate nature non distended. Normal bowel sounds, no guarding or rebound, no pulsitile abdominal masses or bruits Skin: No petechiae or rashes, no ecchymosis , no maculopapular rash Back: No midline or flank tenderness Ext: No cyanosis, or edema, FROM x 4, normal inspection, neurovascularly intact x 4 Neur: Awake and alert, STR 5/5 x 4, sensation intact x 4, no focal findings, cerebellum intact Psych: Normal Mood and Affect Result Diagram: 05/22/17 1448 05/22/17 1448 Results 24 hrs Laboratory Tests Test 05/22/17 14:48 White Blood Count 19.310^3/ul Red Blood Count 4.8510^6/ul Hemoglobin 13.3g/dl Hematocrit 42.9% Mean Corpuscular Volume 88.5fl Mean Corpuscular Hemoglobin 27.4pg Mean Corpuscular Hemoglobin Concent 31.0g/dl Red Cell Distribution Width 14.9% Platelet Count 83688^3/UL Mean Platelet Volume 9.6fl Neutrophils % % Segmented Neutrophils % (Manual) 68% Lymphocytes % % Lymphocytes % (Manual) 29% Monocytes % % Monocytes % (Manual) 2% Eosinophils % % Eosinophils % (Manual) 1% Basophils % % Nucleated Red Blood Cells % 0.0/100WBC Neutrophils # 10^3/ul Absolute Lymphocytes (Manual) 5.510^3/ul Lymphocytes # 10^3/ul Monocytes # 10^3/ul Absolute Monocytes (Manual) 0.310^3/ul Eosinophils # 10^3/ul Basophils # 10^3/ul Nucleated Red Blood Cells # 10^3/ul Platelet Estimate INCREASED Giant Platelets 1% Sodium Level 142mmol/L Potassium Level 3.7mmol/L Chloride Level 97mmol/L Carbon Dioxide Level 34mmol/L Anion Gap 15 Blood Urea Nitrogen 11mg/dl Creatinine 0.65mg/dl Glucose Level 89mg/dl Calcium Level 9.5mg/dl Total Bilirubin 0.0mg/dl Direct Bilirubin 0.00mg/dl Indirect Bilirubin 0.0mg/dl Aspartate Amino Transf (AST/SGOT) 21IU/L Alanine Aminotransferase (ALT/SGPT) 30IU/L Alkaline Phosphatase 120IU/L Total Protein 8.0g/dl Albumin 4.3g/dl Globulin 3.70g/dl Albumin/Globulin Ratio 1.16 Lipase 96U/L Serum HCG, Qualitative NEGATIVE Current Medications Medications (Trade) Dose Ordered Sig/Sarita Route PRN Reason Start Time Stop Time Status Last Admin Dose Admin Sodium Chloride (NS) 1,000 ml @ 1,000 mls/hr Q1H STAT IV 05/22/17 14:48 05/22/17 15:47 DC 05/22/17 14:59 Hydromorphone HCl (Dilaudid) 1 mg ONCE STAT IV 05/22/17 14:48 05/22/17 14:50 DC 05/22/17 14:59 Ondansetron HCl (Zofran Inj) 4 mg ONCE STAT IV 05/22/17 14:48 05/22/17 14:50 DC 05/22/17 14:58 Hydromorphone HCl (Dilaudid) 1 mg ONCE STAT IV 05/22/17 18:45 05/22/17 18:46 DC 05/22/17 19:00 IV Flush 10 ml 10 ml STK-MED ONCE .ROUTE 05/22/17 19:55 05/22/17 19:56 DC Sodium Chloride (NS) 100 ml @ ud STK-MED ONCE .ROUTE 05/22/17 19:55 05/22/17 19:56 DC Iohexol (Omnipaque 300mg/ ml) 150 ml STK-MED ONCE .ROUTE 05/22/17 19:55 05/22/17 19:56 DC Procedures/MDM Patient's CT scan of the abdomen has been delayed multiple times. She is currently pending the CAT scan. The patient does have an elevated white blood count of 19.5. The patient's differential diagnosis here could be appendicitis, diverticulitis, colitis, bowel obstruction. We will check CT scan of the abdomen and pelvis if negative will discharge home with antibiotic therapy and symptomatic control per Departure Diagnosis: Primary Impression: Abdominal pain Abdominal location: lower abdomen, unspecified Qualified Code: R10.30 - Lower abdominal pain Additional Impression: Vomiting and diarrhea Condition: Stable HOPE DESAI DO May 22, 2017 19:55
[2017-05-22] MEDS ORDERED: METR500T PO (19:57)
[2017-05-22] MEDS ORDERED: HYDR-902 PO (19:57)
[2017-05-22] MEDS ORDERED: ONDA4TAB14 PO (19:57)
[2017-05-22] MEDS ORDERED: CIPR500T4 PO (19:57)
--- NOTE | 2017-05-22 21:36 | RADRPT ---
PROCEDURE: CT abdomen and pelvis with contrast. CLINICAL INDICATION: Abdominal Pain TECHNIQUE: CT scan of the abdomen and pelvis without oral contrast was performed and is reconstruc renetta at 2.5 mm contiguous axial intervals from the dome of the diaphragm to the inferior pubic rami.. The patient was scanned with intravenous contrast. Sagittal and coronal reformatted images were o btained from the axial source images. The calculated radiation dose measures and the 1523 mGy centim eters. The CTDI measures 24 mGy. Individualized dose optimization technique was used for the performance of this exam. This included 1. Automated exposure control. 2. Adjustment of the mA and / or kV according to the patient's size. 3. Use of iterative reconstructed technique. COMPARISON: CT abdomen pelvis May 07, 2016 FINDINGS: The lung bases are clear of any infiltrate or nodule. No effusion is seen. There are coronary arter y calcifications. The liver is enlarged measuring 21 cm in length. It is of normal contour and attenuation with no mas s or ductal dilatation. Gallbladder has been removed. The spleen has been removed. No adrenal or fuentes creatic abnormalities present. Kidneys enhance symmetrically and are of normal size and contour. No hydronephrosis, calculus or m asses seen. Ureters are of normal course and caliber with no stone. No bladder mass or stone is pr esent. Uterus appears normal. No adnexal mass is present. There is no aneurysm. No adenopathy is present. No bowel mass or obstruction is present. The appendix is normal. No phlegmon, ascites or pneumop eritoneum is visualized. The osseous structures are intact. IMPRESSION: No evidence of urolithiasis, obstructive uropathy, diverticulitis or appendicitis. Vascular calcifications. Hepatomegaly. Post cholecystectomy. Post splenectomy. .Quinton Hill MD, MD Date Time Electronically viewed and signed by .Quinton Hill MD, MD on 05/22/2017 21:36 .A/
[2017-05-22] MEDS ORDERED: HYDROCODONE/APAP (5/325) TAB PO ONE (22:30)
[2017-05-22 22:57] VITALS: BP 119/78; PULSE 102; RESP 12; TEMP 98.9
[2017-05-25 17:33] LABS: PATH REVIEW CH
== END 2017-05-22 23:01 | disposition home or self-care (01) ==
LOC: E/R 14:29
DX: R10.30 Lower abdominal pain, unspecified (principal); R11.10 Vomiting, unspecified; R19.7 Diarrhea, unspecified; J45.909 Unspecified asthma, uncomplicated; I10 Essential (primary) hypertension; Z79.01 Long term (current) use of anticoagulants; Z79.82 Long term (current) use of aspirin
CPT/HCPCS: 36415; 74177; 80053; 83690; 84703; 85025; 96374; 96375; 96376; 99285; J1170; J2405; J7030; Q9967

== ENCOUNTER 2018-12-26 19:40 | Inpatient (IN) | payer MEDICARE, OTHER ==
[~2018-12-26] VITALS: Ht 170.2 cm; Wt 132.5 kg
[~2018-12-26 19:40] MED LIST changes: +ASPI325T30 PO; -ASPI325T4 PO; +CIPR500T4 PO; +HYDR-3980 PO; +HYDR-4011 PO; -HYDR-906 PO; +METR500T PO; -ONDA-43 PO; +ONDA4TAB13 PO; +ONDA4TAB14 PO
[2018-12-27] MEDS ORDERED: OXYC15TA PO (00:06)
[2018-12-27] MEDS ORDERED: CALC500T91 PO (00:06)
[2018-12-27] MEDS ORDERED: LEVE500T8 PO (00:06)
[2018-12-27] MEDS ORDERED: QUET50TA22 PO (00:06)
[2018-12-27] MEDS ORDERED: METO5TAB58 PO (00:06)
[2018-12-27] MEDS ORDERED: RISP3TAB3 PO (00:06)
[2018-12-27] MEDS ORDERED: GABA300C16 PO (00:06)
[2018-12-27] MEDS ORDERED: NAPR500T8 PO (00:06)
[2018-12-27] MEDS ORDERED: morphine 4 MG/ML VIAL IV STA (01:37)
[2018-12-27] MEDS ORDERED: ONDANSETRON 4 MG INJ IV STA (01:37)
[2018-12-27] MEDS ORDERED: ONDANSETRON 4 MG INJ IV PRN ×2 (02:00→07:30)
[2018-12-27] MEDS ORDERED: ACETAMINOPHEN 325 MG TAB PO PRN (02:00)
--- NOTE | 2018-12-27 02:04 | ERD ---
ER Documentation Chief Complaint Chief Complaint glf about 1 week ago, c/o pain/swelling left foot HPI Is a 43 male brought in by family with complaints of alteration in mental status. According to family he suffered a ground-level fall about a week ago and is been lethargic ever since. No fevers no chills no nausea vomiting. No focal neurologic complaints. No other current issues. ROS All systems reviewed and are negative except as per history of present illness. Medications Home Meds Reported Medications Naproxen* (Naproxen EC*) 500 Mg Tablet.dr, 500 MG PO BID PRN for PAIN, TAB 12/27/18 Calcium Carbonate ([id number]) 500 Mg Tablet, 500 MG PO DAILY, TAB 12/27/18 Metoclopramide* (Reglan*) 5 Mg Tablet, 5 MG PO AC MEALS, TAB 12/27/18 Oxycodone Hcl* (IR) (Oxycodone Hcl*) 15 Mg Tablet, 15 MG PO Q6 PRN for PAIN, TAB 12/27/18 Quetiapine Fumarate* (Quetiapine Fumarate*) 50 Mg Tablet, 50 MG PO HS, TAB 12/27/18 Gabapentin* (Gabapentin*) 300 Mg Capsule, 300 MG PO TID, #90 CAP 12/27/18 Risperidone* (Risperidone*) 3 Mg Tablet, 3 MG PO BID, TAB 12/27/18 Levetiracetam* (Levetiracetam*) 500 Mg Tablet, 500 MG PO TID, TAB 12/27/18 Escitalopram Oxalate* (Lexapro*) 20 Mg Tablet, 20 MG PO DAILY, #30 TAB 12/01/16 Metoprolol Tartrate* (Lopressor*) 25 Mg Tablet, 25 MG PO BID, #60 TAB 12/01/16 Discontinued Reported Medications Risperidone* (Risperidone*) 4 Mg Tablet, 5 MG PO BID, TAB 12/01/16 Ondansetron Hcl* (Zofran*) 4 Mg Tab, 4 MG PO Q4H PRN for NAUSEA AND OR VOMITING, TAB 12/01/16 Potassium Chloride* (Potassium Chloride*) 20 Meq Tablet.er, 20 MEQ PO DAILY, TAB.SA 12/01/16 Furosemide* (Furosemide*) 40 Mg/5 Ml Solution, 40 MG PO DAILY, #150 ML 12/01/16 Buspirone Hcl* (Buspirone Hcl*) 15 Mg Tablet, 30 MG PO TID, TAB 12/01/16 Morphine Sulfate* (Oramorph SR*) 30 Mg Tablet.sa, 30 MG PO Q8, TAB.SA 12/01/16 Morphine Sulfate* (Ms Contin*) 60 Mg Tablet.sa, 60 MG PO Q12, TAB.SA 12/01/16 Omeprazole* (Omeprazole*) 40 Mg Capsule.dr, 40 MG PO DAILY, #30 CAP 12/01/16 Cyanocobalamin* (Vitamin B-12*) 1,000 Mcg Tablet.sa, 1000 MCG PO DAILY, TAB 12/01/16 Pantoprazole* (Pantoprazole*) 40 Mg Tablet.dr, 40 MG PO DAILY, TAB 12/01/16 Levetiracetam* (Keppra*) 1,000 Mg Tablet, 1000 MG PO BID, TAB 12/01/16 Hydromorphone Hcl* (Dilaudid*) Unknown Strength Tablet, 1 MG PO Q3H PRN for PAIN, TAB 12/01/16 Hydrocodone/Acetaminophen ([place] 5-325 Tablet) Unknown Strength Tablet, 0 PO, TAB 12/01/16 Enoxaparin Sodium* (Lovenox*) 40 Mg/0.4 Ml Syringe, 40 MG SC DAILY, SYR 12/01/16 Aspirin* (Aspirin*) 325 Mg Tablet, 325 MG PO DAILY, TAB 12/01/16 Discontinued Scripts Metronidazole* (Flagyl*) 500 Mg Tablet, 500 MG PO TID for 7 Days, TAB Prov:INDIRA DESAISTKAMIS Serenity. DO 05/22/17 Ciprofloxacin Hcl* (Ciprofloxacin Hcl*) 500 Mg Tablet, 500 MG PO BID for 7 Days, TAB Prov:INDIRA DESAISTOLOS A. DO 05/22/17 Hydrocodone/Acetaminophen ([place] 10-325 Tablet) 1 Each Tablet, 1 TAB PO Q6H PRN for PAIN, #20 TAB Prov:HOPE DESAI. DO 05/22/17 Ondansetron (Ondansetron Odt) 4 Mg Tab.rapdis, 4 MG PO Q6H PRN for NAUSEA AND/OR VOMITING, #10 TAB Prov:HOPE DESAI. DO 05/22/17 Allergies Allergies: Coded Allergies: Sulfa (Sulfonamide Antibiotics) (Unverified Allergy, Unknown, rash/hives, 05/22/17) penicillin V (Unverified Allergy, Unknown, rash/ hives, 05/22/17) sulfamethoxazole (Unverified Allergy, Unknown, rash/hives, 05/22/17) tetracycline (Unverified Allergy, Unknown, rash/hives, 05/22/17) trimethoprim (Unverified Allergy, Unknown, rash/hives, 05/22/17) PMhx/Soc History of Surgery: Yes (splenectomy, cholecystectomy) Anesthesia Reaction: No Hx Neurological Disorder: Yes ( seizure) Hx Respiratory Disorders: Yes (asthma) Hx Cardiac Disorders: Yes (HTN) Hx Psychiatric Problems: Yes (Bipolar) Hx Alcohol Use: No Hx Substance Use: No Hx Tobacco Use: No Smoking Status: Former smoker Physical Exam Vitals Vital Signs Date Temp Pulse Resp B/P (MAP) Pulse Ox O2 O2 Flow FiO2 Time Delivery Rate 12/26/18 Nasal 2 23:38 Cannula 12/26/18 71 16 106/53 95 Room Air 22:57 (70) 12/26/18 97.0 82 18 100/66 92 19:55 (77) Physical Exam Const: No acute distress Head: Atraumatic Eyes: Normal Conjunctiva ENT: Normal External Ears, Nose and Mouth. Neck: Full range of motion. No meningismus. Resp: Clear to auscultation bilaterally Cardio: Regular rate and rhythm, no murmurs Abd: Soft, non tender, non distended. Normal bowel sounds Skin: No petechiae or rashes Back: No midline or flank tenderness Ext: No cyanosis, or edema Neur: Lethargic but arousable Psych: Deferred Result Diagram: 12/26/18223112/26/182231 Results 24 hrs Laboratory Tests Test 12/26/18 22:32 12/26/18 22:39 White Blood Count 14.4 10^3/ul Red Blood Count 4.37 10^6/ul Hemoglobin 10.5 g/dl Hematocrit 36.9 % Mean Corpuscular Volume 84.4 fl Mean Corpuscular Hemoglobin 24.0 pg Mean Corpuscular Hemoglobin Concent 28.5 g/dl Red Cell Distribution Width 18.6 % Platelet Count 657 10^3/UL Mean Platelet Volume 10.5 fl Immature Granulocytes % 0.800 % Neutrophils % % Segmented Neutrophils % (Manual) 41 % Band Neutrophils % (Manual) 2 % Lymphocytes % % Lymphocytes % (Manual) 43 % Monocytes % % Monocytes % (Manual) 9 % Eosinophils % % Eosinophils % (Manual) 5 % Basophils % % Nucleated Red Blood Cells % 1 % Immature Granulocytes # 0.110 10^3/ul Neutrophils # 10^3/ul Neutrophils # (Manual) 5.9 10^3/ul Band Neutrophils # 0.2 10^3/ul Lymphocytes (Manual) 6.1 10^3/ul Lymphocytes # 10^3/ul Monocytes # 10^3/ul Monocytes # (Manual) 1.2 10^3/ul Eosinophils # 10^3/ul Basophils # 10^3/ul Nucleated Red Blood Cells # 10^3/ul Platelet Estimate INCREASED Giant Platelets 1 % Polychromasia 3+ Hypochromasia 1+ Poikilocytosis 2+ Anisocytosis 1+ Macrocytosis 1+ Sodium Level 139 mmol/L Potassium Level 4.4 mmol/L Chloride Level 99 mmol/L Carbon Dioxide Level 36 mmol/L Anion Gap 4 Blood Urea Nitrogen 8 mg/dl Creatinine 0.68 mg/dl Est Glomerular Filtrat Rate mL/min > 60 mL/min Glucose Level 90 mg/dl Calcium Level 8.8 mg/dl Total Bilirubin 0.2 mg/dl Direct Bilirubin 0.00 mg/dl Indirect Bilirubin 0.2 mg/dl Aspartate Amino Transf (AST/SGOT) 24 IU/L Alanine Aminotransferase (ALT/SGPT) 31 IU/L Alkaline Phosphatase 95 IU/L Troponin I < 0.012 ng/ml Total Protein 6.6 g/dl Albumin 3.2 g/dl Globulin 3.40 g/dl Albumin/Globulin Ratio 0.94 Salicylates Level < 1.0 mg/dl Urine Opiates Screen Positive Acetaminophen Level < 10.0 ug/ml Urine Barbiturates Negative Urine Amphetamines Screen Negative Urine Benzodiazepines Screen Positive Urine Cocaine Screen Negative Urine Cannabinoids Negative Ethyl Alcohol Level < 10.0 mg/dl Current Medications Medications Dose Sig/Sarita Start Time Status Last (Trade) Ordered Route PRN Stop Time Admin Dose Reason Admin Morphine 4 mg ONCE STAT 12/27/18 DC 12/27/18 Sulfate IV 01:37 12/27/18 01:46 (morphine) 01:38 Ondansetron 4 mg ONCE STAT 12/27/18 DC 12/27/18 HCl (Zofran IV 01:37 7/9/19 01:47 Inj) 01:38 Ondansetron 4 mg ER BRIDGE 12/27/18 HCl (Zofran PRN IV 02:00 Inj) NAUSEA/VOMITI 12/28/18 01:59 NG 650 mg ER BRIDGE 12/27/18 Acetaminophen PRN PO 02:00 (Tylenol .MILD PAIN 12/28/18 01:59 Tab) 1-3 OR TEMP Procedures/MDM EKG: Rate/Rhythm: [Normal Sinus Rhythm] QRS, ST, T-waves: [No changes consistent w/ acute ischemia] Impression: [No evidence of ischemia or arrhythmia] Chest X-ray 1V Interpreted by me: Soft Tissue: No acute abnorma lities Bones: No acute abnormalities Mediastinum/Cardiac Silhouette/Lungs: [No acute abnormalities]. Medical decision making: Is a 43-year-old female who comes in with alteration of mental status. Multiple factors could be playing including ingestion of narcotic medications. However given her continued lethargy and prolonged course, I feel the patient is to be admitted for further evaluation and management. Dr. Gates is on-call for Dr. Bard dent was admitted the patient previously and is can accept the patient to service. Departure Diagnosis: Primary Impression: Acute weakness Condition: Stable YA PEDROZA Dec 27, 2018 02:04
[2018-12-27 06:45] VITALS: Ht 170.2 cm; Wt 132.5 kg
[2018-12-27 07:11] VITALS: BP 101/56; PULSE 80; RESP 20
[2018-12-27] MEDS: SOD CHLORIDE 0.9% 1,000 ML IV SCH ×2 (08:31→16:57)
[2018-12-27] MEDS: morphine 2 MG INJ IV PRN ×4 (08:32→20:58)
[2018-12-27] MEDS: ENOXAPARIN 30 MG/0.3 ML SYG SC SCH (08:59)
[2018-12-27 11:30] VITALS: BP 104/55; PULSE 76; RESP 20
--- NOTE | 2018-12-27 14:27 | HP ---
Date/Time of Note Date/Time of Note DATE: 12/27/18 TIME: 14:25 Assessment/Plan VTE Prophylaxis Risk score (from Ns)>0 risk: 4 SCD applied (from Ns): Yes Pharmacological prophylaxis: LMWH Lines/Catheters IV [facility]from [facility] Peripheral IV Assessment/Plan Assessment/Plan -Altered mental status, however patient currently is awake alert and oriented x4 with no neuro deficit. Dr. Arita is asked to see patient in neurology consultation. -Systemic inflammatory response syndrome with leukocytosis and generalized weakness, will obtain urine and blood cultures chest x-ray. -Seizure disorder. Continue Keppra. -Bipolar disorder. Continue Lexapro. -Bilateral ankle swelling, venous Doppler is negative for deep venous thrombosis, will obtain old 2D echo. -Cardiomyopathy with ejection fraction of 45 per last echo. -History of right foot drop. Will obtain PT eval. Further recommendations based on clinical course. Plan of care discussed with Dr. Walden. Result Diagram: 12/27/18 0800 12/27/18 0800 Results 24hrs Laboratory Tests Test 12/26/18 22:32 12/26/18 22:39 12/27/18 08:00 12/27/18 12:23 White Blood Count 14.4 #H 12.3 H Red Blood Count 4.37 4.26 Hemoglobin 10.5 #L 10.2 L Hematocrit 36.9 L 36.1 L Mean Corpuscular 84.4 84.7 Volume Mean Corpuscular 24.0 L 23.9 L Hemoglobin Mean Corpuscular 28.5 L 28.3 L Hemoglobin Concent Red Cell 18.6 #H 18.6 H Distribution Width Platelet Count 657 H 668 H Mean Platelet 10.5 H 10.0 Volume Immature 0.800 H 0.300 Granulocytes % Neutrophils % 62.7 Segmented 41 Neutrophils % (Manual) Band Neutrophils % 2 (Manual) Lymphocytes % 26.0 Lymphocytes % 43 (Manual) Monocytes % 6.8 Monocytes % 9 (Manual) Eosinophils % 3.6 Eosinophils % 5 (Manual) Basophils % 0.6 Nucleated Red 1 H 0.6 H Blood Cells % Immature 0.110 H 0.040 H Granulocytes # Neutrophils # 7.7 H Neutrophils # 5.9 (Manual) Band Neutrophils # 0.2 Lymphocytes 6.1 H (Manual) Lymphocytes # 3.2 H Monocytes # 0.8 Monocytes # 1.2 H (Manual) Eosinophils # 0.5 Basophils # 0.1 Nucleated Red 0.1 H Blood Cells # Platelet Estimate INCREASED Giant Platelets 1 H Polychromasia 3+ Hypochromasia 1+ Poikilocytosis 2+ Anisocytosis 1+ Macrocytosis 1+ Sodium Level 139 143 Potassium Level 4.4 4.8 Chloride Level 99 101 Carbon Dioxide 36 H 37 H Level Anion Gap 4 L 5 Blood Urea 8 7 Nitrogen Creatinine 0.68 0.59 Est Glomerular > 60 > 60 Filtrat Rate mL/min Glucose Level 90 105 Calcium Level 8.8 8.1 L Total Bilirubin 0.2 Direct Bilirubin 0.00 Indirect Bilirubin 0.2 Aspartate Amino 24 Transf (AST/SGOT) Alanine 31 Aminotransferase ( ALT/SGPT) Alkaline 95 Phosphatase Troponin I < 0.012 Total Protein 6.6 Albumin 3.2 L Globulin 3.40 H Albumin/Globulin 0.94 Ratio Salicylates Level < 1.0 L Urine Opiates Positive Screen Acetaminophen < 10.0 L Level Urine Barbiturates Negative Urine Amphetamines Negative Screen Urine Positive Benzodiazepines Screen Urine Cocaine Negative Screen Urine Cannabinoids Negative Ethyl Alcohol < 10.0 H Level Urine Color YELLOW Urine Clarity SLIGHTLY CLOUDY A Urine pH 8.0 Urine Specific 1.015 Kamrar Urine Ketones NEGATIVE Urine Nitrite NEGATIVE Urine Bilirubin NEGATIVE Urine Urobilinogen NEGATIVE Urine Leukocyte NEGATIVE Esterase Urine Microscopic 0 RBC Urine Microscopic 2 WBC Urine Squamous FEW Epithelial Cells Urine Hemoglobin NEGATIVE Urine Glucose NEGATIVE Urine Total NEGATIVE Protein HPI/ROS Admit Date/Time Admit Date/Time Dec 27, 2018 at 01:57 Hx of Present Illness The patient is a 43-year-old female with history of asthma, bipolar disorder, history of seizure, hypertension, history of non-STEMI, obesity, right foot droop most likely secondary to compression neuropathy, history of rhabdomyolysis, cardiomyopathy was brought from home by family members for complaints of altered mental status. Patient stated that she suffered a ground- level fall a week ago and has been generally weak and lethargic since then. During the examination patient is awake alert and oriented and communicative. Patient denies any fever denies chills denies nausea vomiting denies diarrhea. Patient complains of constipation and bilateral lower extremity swelling. Patient is noted to have leukocytosis on admission. CT of the brain is unremar kable patient underwent bilateral foot x-ray which revealed some swelling however no fracture dislocation. Patient will be admitted for further evaluation and management to telemetry floor. ROS 12 point review of system is negative except for what mentioned in HPI PMH/Family/Social Past Medical History Medical History: hypertension, other (Seizure, bipolar disorder, asthma) Medications Current Medications Acetaminophen (Tylenol Tab) 650 mg ER BRIDGE PRN PO .MILD PAIN 1-3 OR TEMP; Sta rt 12/27/18 at 02:00; Stop 12/28/18 at 01:59 Enoxaparin Sodium (Lovenox) 30 mg DAILY SC Last administered on 12/27/18at 08:59; Admin Dose 30 MG; Start 12/27/18 at 09:00 Morphine Sulfate (morphine) 2 mg Q4H PRN IV SEVERE PAIN LEVEL 7-10 Last administered on 12/27/18at 13:20; Admin Dose 2 MG; Start 12/27/18 at 07:30 Ondansetron HCl (Zofran Inj) 4 mg Q6H PRN IV NAUSEA AND/OR VOMITING; Start 12/27/18 at 07:30 Sodium Chloride 1,000 ml @ 100 mls/hr Q10H IV Last administered on 12/27/18at 08:31; Admin Dose 100 MLS/HR; Start 12/27/18 at 08:00 Coded Allergies: Sulfa (Sulfonamide Antibiotics) (Unverified Allergy, Unknown, rash/hives, 05/22/17) penicillin V (Unverified Allergy, Unknown, rash/ hives, 05/22/17) sulfamethoxazole (Unverified Allergy, Unknown, rash/hives, 05/22/17) tetracycline (Unverified Allergy, Unknown, rash/hives, 05/22/17) trimethoprim (Unverified Allergy, Unknown, rash/hives, 05/22/17) Past Surgical History Past Surgical Hx: cholecystectomy, other (Status post splenectomy, status post cholecystectomy) Family History Significant Family History: heart disease, diabetes, hypertension Social History Alcohol Use: none Smoking Status: Former smoker Drug Use: none Exam/Review of Systems Vital Signs Vitals Vital Signs Date Temp Pulse Resp B/P (MAP) Pulse Ox O2 O2 Flow FiO2 Time Delivery Rate 12/27/18 97.9 76 20 104/55 97 11:30 (71) 12/27/18 Nasal 3.0 08:00 Cannula Exam Constitutional: alert, oriented Head: normocephalic Neck: supple Respiratory: clear to auscultation Cardiovascular: nl pulses Gastrointestinal: soft, non-tender Extremities: normal pulses, other (Bilateral ankle swelling) Neurological: nl mental status Skin: nl VINICIO Conn Dec 27, 2018 14:27
[2018-12-27 15:27] VITALS: BP 103/55; PULSE 66; RESP 20
[2018-12-27 20:00] VITALS: BP 100/53; PULSE 68; RESP 18
[2018-12-27] MEDS ORDERED: NAPROXEN 500 MG PO PRN (22:30)
[2018-12-27] MEDS: GABAPENTIN 300 MG CAP PO SCH (23:38)
[2018-12-27] MEDS: LEVETIRACETAM 500 MG TAB PO SCH (23:38)
[2018-12-27] MEDS: RISPERIDONE 1 MG TAB PO SCH (23:38)
[2018-12-27] MEDS: QUETIAPINE 25 MG TAB PO SCH (23:38)
[2018-12-27] MEDS: oxyCODONE 15 MG TAB PO PRN (23:43)
[2018-12-28] VITALS (8 sets, daily range): BP systolic 97–162; BP diastolic 55–72; PULSE 65–113; RESP 16–20
[2018-12-28] MEDS: SOD CHLORIDE 0.9% 1,000 ML IV SCH ×2 (03:44→14:06)
[2018-12-28] MEDS: METOCLOPRAMIDE 5 MG TAB PO SCH ×3 (06:23→16:47)
[2018-12-28] MEDS: NAPROXEN 500 MG TAB PO PRN ×2 (06:23→14:17)
[2018-12-28] MEDS: CALCIUM CARBONATE 1.25 GM TAB PO SCH (08:32)
[2018-12-28] MEDS: LEVETIRACETAM 500 MG TAB PO SCH ×3 (08:33→20:59)
[2018-12-28] MEDS: GABAPENTIN 300 MG CAP PO SCH ×3 (08:33→20:59)
[2018-12-28] MEDS: RISPERIDONE 1 MG TAB PO SCH ×2 (08:33→20:59)
[2018-12-28] MEDS: ESCITALOPRAM 10 MG TAB PO SCH (08:33)
[2018-12-28] MEDS: ENOXAPARIN 30 MG/0.3 ML SYG SC SCH (08:46)
[2018-12-28] MEDS ORDERED: LEVETIRACETAM 500 MG TAB PO SCH (09:00)
[2018-12-28] MEDS ORDERED: GABAPENTIN 300 MG CAP PO SCH (09:00)
[2018-12-28] MEDS: oxyCODONE 15 MG TAB PO PRN ×2 (10:17→17:55)
[2018-12-28] MEDS: POLYETHYLENE GLYCOL 17 GM PACKET GTB SCH (10:56)
--- NOTE | 2018-12-28 13:36 | CONSI ---
Assessment/Plan Assessment/Plan Assessment/Plan (Recall) 43 F c/ / reported Hx of epilepsy, and other comorbidities...who presents for evaluation of ams following a fall 1 week ago.. The clinical picture could be consistent w/ a mild post-concussive encep halopathy.. A focal WOOD [employer] ARTIST process is unlikely.. Head CT is reassuringly negative for acute intracranial pathology. P: OK to defer further neuroimaging for now Consider reduced antipsychotic medication doses acutely, in collaboration with psychiatry, should lethargy persist and interfere w/ ADLs. [place] as necessary PT/OT/ST as necessary Other management and supportive care per primary Will follow clinically Consultation Date/Type/Reason Admit Date/Time Dec 27, 2018 at 01:57 Type of Consult Neurology Reason for Consultation ams Requesting Provider: VINICIO HOUSTON Date/Time of Note DATE: 12/28/18 TIME: 13:28 Hx of Present Illness The patient is a 43-year-old female with history of asthma, bipolar disorder, history of seizure, hypertension, history of non-STEMI, obesity, right foot droop most likely secondary to compression neuropathy, history of rhabdomyolysis, cardiomyopathy was brought from home by family members for complaints of altered mental status. Patient stated that she suffered a ground- level fall a week ago and has been generally weak and lethargic since then. During the examination patient is awake alert and oriented and communicative. Patient denies any fever denies chills denies nausea vomiting denies diarrhea. Patient complains of constipation and bilateral lower extremity swelling. Patient is noted to have leukocytosis on admission. CT of the brain is unremarkable patient underwent bilateral foot x-ray which revealed some swelling however no fracture dislocation. Patient will be admitted for further evaluation and management to telemetry floor. per HPI Objective Exam Vitals Vital Signs Date Temp Pulse Resp B/P (MAP) Pulse Ox O2 O2 Flow FiO2 Time Delivery Rate 12/28/18 97.6 68 16 108/55 99 11:29 (72) 12/28/18 Nasal 2.0 08:00 Cannula Intake and Output 12/27/18 12/27/18 12/28/18 1515:00 23:00 07:00 IntakeIntake Total 650 ml 2220 ml 200 ml OutputOutput Total 1300 ml BalanceBalance 650 ml 2220 ml -1100 ml Exam PE: Gen Appearance: No Apparent Distress HEENT: Normocephalic Cardiovascular: Regular rate Abdomen: Soft Extremities: Left foot swelling NE: The patient was alert and oriented to person, hospital, and situation... Language was somewhat dysfluent.. Fund of knowledge was adequate. Pupils were equal and reactive to light. There was no afferent pupillary defect. Visual vazquez were normal. Funduscopic examination was limited. Extra-ocular movements were full. Ptosis was absent. There was no nystagmus. Facial sensation was normal. Face was symmetric with normal strength. Hearing was intact. Palate movements were normal. Neck strength was normal. There was normal tongue bulk and speed of movement. Tone was normal. Muscle bulk was normal. I did not see fasciculations. Arms and legs were symmetric. Vibration sensation was reduced distally. Temperature and pinprick sensation was normal. Rapid alternating movements were normal. There was no dysmetria. There was no intention tremor. Gait was deferred due to bedrest. Arm and leg reflexes were symmetric. Valerio's sign was absent. Plantar responses were flexor. Results Result Diagram: 12/27/18 0800 12/27/18 0800 Results 24hrs Laboratory Tests Test 12/28/18 05:44 Hemoglobin A1c 5.6 Past Medical History Medical History: hypertension, other (Seizure, bipolar disorder, asthma) Home Meds Reported Medications Naproxen* (Naproxen EC*) 500 Mg Tablet.dr, 500 MG PO BID PRN for PAIN, TAB 12/27/18 Calcium Carbonate ([id number]) 500 Mg Tablet, 500 MG PO DAILY, TAB 12/27/18 Metoclopramide* (Reglan*) 5 Mg Tablet, 5 MG PO AC MEALS, TAB 12/27/18 Oxycodone Hcl* (IR) (Oxycodone Hcl*) 15 Mg Tablet, 15 MG PO Q6 PRN for PAIN, TAB 12/27/18 Quetiapine Fumarate* (Quetiapine Fumarate*) 50 Mg Tablet, 50 MG PO HS, TAB 12/27/18 Gabapentin* (Gabapentin*) 300 Mg Capsule, 300 MG PO TID, #90 CAP 12/27/18 Risperidone* (Risperidone*) 3 Mg Tablet, 3 MG PO BID, TAB 12/27/18 Levetiracetam* (Levetiracetam*) 500 Mg Tablet, 500 MG PO TID, TAB 12/27/18 Escitalopram Oxalate* (Lexapro*) 20 Mg Tablet, 20 MG PO DAILY, #30 TAB 12/01/16 Metoprolol Tartrate* (Lopressor*) 25 Mg Tablet, 25 MG PO BID, #60 TAB 12/01/16 Discontinued Reported Medications Risperidone* (Risperidone*) 4 Mg Tablet, 5 MG PO BID, TAB 12/01/16 Ondansetron Hcl* (Zofran*) 4 Mg Tab, 4 MG PO Q4H PRN for NAUSEA AND OR VOMITING, TAB 12/01/16 Potassium Chloride* (Potassium Chloride*) 20 Meq Tablet.er, 20 MEQ PO DAILY, TAB.SA 12/01/16 Furosemide* (Furosemide*) 40 Mg/5 Ml Solution, 40 MG PO DAILY, #150 ML 12/01/16 Buspirone Hcl* (Buspirone Hcl*) 15 Mg Tablet, 30 MG PO TID, TAB 12/01/16 Morphine Sulfate* (Oramorph SR*) 30 Mg Tablet.sa, 30 MG PO Q8, TAB.SA 12/01/16 Morphine Sulfate* (Ms Contin*) 60 Mg Tablet.sa, 60 MG PO Q12, TAB.SA 12/01/16 Omeprazole* (Omeprazole*) 40 Mg Capsule.dr, 40 MG PO DAILY, #30 CAP 12/01/16 Cyanocobalamin* (Vitamin B-12*) 1,000 Mcg Tablet.sa, 1000 MCG PO DAILY, TAB 12/01/16 Pantoprazole* (Pantoprazole*) 40 Mg Tablet.dr, 40 MG PO DAILY, TAB 12/01/16 Levetiracetam* (Keppra*) 1,000 Mg Tablet, 1000 MG PO BID, TAB 12/01/16 Hydromorphone Hcl* (Dilaudid*) Unknown Strength Tablet, 1 MG PO Q3H PRN for PAIN, TAB 12/01/16 Hydrocodone/Acetaminophen ([place] 5-325 Tablet) Unknown Strength Tablet, 0 PO, TAB 12/01/16 Enoxaparin Sodium* (Lovenox*) 40 Mg/0.4 Ml Syringe, 40 MG SC DAILY, SYR 12/01/16 Aspirin* (Aspirin*) 325 Mg Tablet, 325 MG PO DAILY, TAB 12/01/16 Discontinued Scripts Metronidazole* (Flagyl*) 500 Mg Tablet, 500 MG PO TID for 7 Days, TAB Prov:HOPE DESAI DO 05/22/17 Ciprofloxacin Hcl* (Ciprofloxacin Hcl*) 500 Mg Tablet, 500 MG PO BID for 7 Days, TAB Prov:HOPE DESAI DO 05/22/17 Hydrocodone/Acetaminophen ([place] 10-325 Tablet) 1 Each Tablet, 1 TAB PO Q6H PRN for PAIN, #20 TAB Prov:HOPE DESAI DO 05/22/17 Ondansetron (Ondansetron Odt) 4 Mg Tab.rapdis, 4 MG PO Q6H PRN for NAUSEA AND/OR VOMITING, #10 TAB Prov:HOPE DESAI DO 05/22/17 Medications Current Medications Enoxaparin Sodium (Lovenox) 30 mg DAILY SC Last administered on 12/28/18 08:46; Admin Dose 30 MG; Start 12/27/18 at 09:00 Morphine Sulfate (morphine) 2 mg Q4H PRN IV SEVERE PAIN LEVEL 7-10 Last administered on 12/27/18 20:58; Admin Dose 2 MG; Start 12/27/18 at 07:30 Ondansetron HCl (Zofran Inj) 4 mg Q6H PRN IV NAUSEA AND/OR VOMITING; Start 12/27/18 at 07:30 Sodium Chloride 1,000 ml @ 100 mls/hr Q10H IV Last administered on 12/28/18 03:44; Admin Dose 100 MLS/HR; Start 12/27/18 at 08:00 Calcium Carbonate (Oyster Shell Calcium) 1.25 gm DAILY PO Last administered on 12/28/18 08:32; Admin Dose 1.25 GM; Start 12/28/18 at 09:00 Escitalopram Oxalate (Lexapro) 20 mg DAILY PO Last administered on 12/28/18 08:33; Admin Dose 20 MG; Start 12/28/18 at 09:00 Metoclopramide HCl (Reglan) 5 mg AC MEALS PO Last administered on 12/28/18 10:56; Admin Dose 5 MG; Start 12/28/18 at 07:00 Oxycodone HCl (Roxicodone) 15 mg Q6H PRN PO PAIN Last administered on 12/28/18 10:17; Admin Dose 15 MG; Start 12/27/18 at 22:30 Risperidone (Risperdal) 3 mg BID PO Last administered on 12/28/18 08:33; Admin Dose 3 MG; Start 12/27/18 at 22:30 Gabapentin (Neurontin) 300 mg TID PO Last administered on 12/28/18 12:38; Admin Dose 300 MG; Start 12/27/18 at 23:00 Levetiracetam (Keppra) 500 mg TID PO Last administered on 12/28/18 12:38; Admin Dose 500 MG; Start 12/27/18 at 23:00 Quetiapine Fumarate (Seroquel) 50 mg HS PO Last administered on 12/27/18 23:38; Admin Dose 50 MG; Start 12/27/18 at 23:00 Naproxen (Naprosyn) 500 mg BID PRN PO MILD PAIN LEVEL 1-3 Last administered on 12/28/18 06:23; Admin Dose 500 MG; Start 12/27/18 at 23:00 Polyethylene Glycol (Miralax) 17 gm DAILY GTB Last administered on 12/28/18 10:56; Admin Dose 17 GM; Start 12/28/18 at 11:00 Allergies: Coded Allergies: Sulfa (Sulfonamide Antibiotics) (Unverified Allergy, Unknown, rash/hives, 05/22/17) penicillin V (Unverified Allergy, Unknown, rash/ hives, 05/22/17) sulfamethoxazole (Unverified Allergy, Unknown, rash/hives, 05/22/17) tetracycline (Unverified Allergy, Unknown, rash/hives, 05/22/17) trimethoprim (Unverified Allergy, Unknown, rash/hives, 05/22/17) Past Surgical History Past Surgical Hx: cholecystectomy, other (Status post splenectomy, status post cholecystectomy) Social History Alcohol Use: none Smoking Status: Former smoker Drug Use: none CRICKET PRUITT Dec 28, 2018 13:36
--- NOTE | 2018-12-28 16:23 | RADRPT ---
Echocardiogram Report Patient Name: TAMIR BUSHPatient ID: [id number] : 1975 (43y 11m)Study Date: 12/28/2018 1:24:19 PM Gender: FAccession #: [id number] Tech: Troy Rodriguez RDCS Location: 625 Ref.Physician: VINICIO HOUSTON Height(Cm): BSA: Weight(Kg): Quality: Technically Difficult StudyOrder Physician: VINICIO HOUSTON Account #: Procedures: Echocardiographic Report: Transthoracic echocardiogram with complete 2D, M-Mode, and doppler examination. Indications: Evaluate Left Ventricular function, leg swelling. Measurements: 2D/M Mode Doppler Measurement Value Normal Range Measurement Value Normal Range LVIDd 2D 5.8 [ 3.8 - 5.2 ] cm AV Peak Ravi 1.5 [ 100.0 - 170.0 ] cm/sec LVIDs 2D 3.1 [ 2.2 - 3.5 ] cm AV Peak PG 8.0 [ 2.0 - 9.0 ] mmHg LVPWd 2D 0.9 [ 0.6 - 0.9 ] cm LVOT Peak Ravi 1.1 [ 70.0 - 110.0 ] cm/sec IVSd 2D 0.9 [ 0.6 - 0.9 ] cm LVOT Peak PG 5.0 [ 2.0 - 6.0 ] mmHg AoR Diam 2D 2.9 [ 2.3 - 3.1 ] cm MV E Peak Ravi 0.8 [ 60.0 - 130.0 ] cm/sec EDV 2D 166.0 [ 46.0 - 106.0 ] ml MV A Peak Ravi 0.5 [ 100.0 - 120.0 ] cm/sec ESV 2D 37.3 [ 14.0 - 42.0 ] ml MV E/A 1.6 [ 0.8 - 1.5 ] ratio EF 2D 77.5 [ 54.0 - 74.0 ] percent MV Decel Time 201 [ 104 - 258 ] msec LA Dimen 2D 3.2 [ 2.7 - 3.8 ] cm Lat E` Ravi 0.1 [ 10.0 - 15.0 ] cm/sec Lateral E/E` 6.1 [ 1.0 - 2.0 ] ratio Med E` Ravi 0.1 cm/sec MV E/A 1.6 [ 0.8 - 1.5 ] ratio TR Peak Ravi 2.5 [ 100.0 - 280.0 ] cm/sec TR Peak PG 24.0 mmHg RVSP 32.0 [ 10.0 - 36.0 ] mmHg RA Pressure 8.0 mmHg Findings: Left Ventricle: Normal left ventricular systolic function. Normal left ventricular cavity size. Normal left ventricular wall thickness. Ejection fraction is visually estimated at 55 %. Tissue Doppler/Mitral Doppler indices are within normal limits. Right Ventricle: Normal right ventricular size. Normal right ventricular systolic function. Left Atrium: The left atrium is normal in size. Right Atrium: The right atrium is normal in size. Mitral Valve: Normal appearance and function of the mitral valve with trace physiologic regurgitation. Aortic Valve: Normal appearance of the aortic valve. No significant aortic stenosis or insufficiency. Tricuspid Valve: Normal appearance of the tricuspid valve. The estimated Peak RVSP is 32 mmHg. There is mild tricuspid regurgitation. Pulmonic Valve: Normal pulmonic valve appearance. Pericardium: Trivial pericardial effusion. Aorta: Normal aortic root. IVC: Normal size and normal respiratory collapse consistent with normal right atrial pressure. Conclusions: Normal left ventricular systolic function. Normal left ventricular cavity size. Normal left ventricular wall thickness. Ejection fraction is visually estimated at 55 %. Tissue Doppler/Mitral Doppler indices are within normal limits. Normal appearance and function of the mitral valve with trace physiologic regurgitation. Normal appearance of the tricuspid valve. The estimated Peak RVSP is 32 mmHg. There is mild tricuspid regurgitation. Electronically Signed By: Jourdan Spring 2018-12-28 16:22:08 PDT
--- NOTE | 2018-12-28 19:03 | PN ---
Date/Time of Note Date/Time of Note DATE: 12/28/18 TIME: 18:57 Assessment/Plan VTE Prophylaxis Risk score (from Ns)>0 risk: 3 SCD applied (from Ns): Yes Pharmacological prophylaxis: LMWH Lines/Catheters IV [facility] Peripheral IV Assessment/Plan Hospital Course Patient is awake alert, was able to get up from bed and walk to bedside commode with PT, will obtain psych evaluation. Assessment/Plan -Altered mental status, however patient currently is awake alert and oriented x4 with no neuro deficit. Dr. Arita is following in neurology consultation. -Systemic inflammatory response syndrome with leukocytosis and generalized weakness, blood cultures negative chest x-ray is unremarkable. -Seizure disorder. Continue Keppra. -Bipolar disorder. Continue Lexapro. -Bilateral ankle swelling, venous Doppler is negative for deep venous thrombosis, 2D echo preserved ejection fraction. -Cardiomyopathy with ejection fraction of 45 per last echo. -History of right foot drop. Continue PT. Further recommendations based on clinical course. Plan of care discussed with Dr. Walden. Result Diagram: 12/27/18 0800 12/27/18 0800 Results 24hrs Laboratory Tests Test 12/28/18 05:44 Hemoglobin A1c 5.6 Exam/Review of Systems Exam Vitals Vital Signs Date Temp Pulse Resp B/P (MAP) Pulse Ox O2 O2 Flow FiO2 Time Delivery Rate 12/28/18 97.8 80 16 116/72 96 15:19 (87) 12/28/18 Nasal 2.0 08:00 Cannula Intake and Output 12/27/18 12/27/18 12/28/18 1515:00 23:00 07:00 IntakeIntake Total 650 ml 2220 ml 200 ml OutputOutput Total 1300 ml BalanceBalance 650 ml 2220 ml -1100 ml Exam Constitutional: alert, oriented Respiratory: clear to auscultation Cardiovascular: nl pulses Gastrointestinal: soft, non-tender Extremities: normal pulses, other (Bilateral ankle swelling) Neurological: nl mental status Skin: nl turgor Results Results 24hrs Laboratory Tests Test 12/28/18 05:44 Hemoglobin A1c 5.6 Medications Medication Current Medications Enoxaparin Sodium (Lovenox) 30 mg DAILY SC Last administered on 12/28/18at 08:46; Admin Dose 30 MG; Start 12/27/18 at 09:00 Morphine Sulfate (morphine) 2 mg Q4H PRN IV SEVERE PAIN LEVEL 7-10 Last administered on 12/27/18 20:58; Admin Dose 2 MG; Start 12/27/18 at 07:30 Ondansetron HCl (Zofran Inj) 4 mg Q6H PRN IV NAUSEA AND/OR VOMITING; Start 12/27/18 at 07:30 Sodium Chloride 1,000 ml @ 100 mls/hr Q10H IV Last administered on 12/28/18 14:06; Admin Dose 100 MLS/HR; Start 12/27/18 at 08:00 Calcium Carbonate (Oyster Shell Calcium) 1.25 gm DAILY PO Last administered on 12/28/18 08:32; Admin Dose 1.25 GM; Start 12/28/18 at 09:00 Escitalopram Oxalate (Lexapro) 20 mg DAILY PO Last administered on 12/28/18 08:33; Admin Dose 20 MG; Start 12/28/18 at 09:00 Metoclopramide HCl (Reglan) 5 mg AC MEALS PO Last administered on 12/28/18 16:47; Admin Dose 5 MG; Start 12/28/18 at 07:00 Oxycodone HCl (Roxicodone) 15 mg Q6H PRN PO PAIN Last administered on 12/28/18 17:55; Admin Dose 15 MG; Start 12/27/18 at 22:30 Risperidone (Risperdal) 3 mg BID PO Last administered on 12/28/18 08:33; Admin Dose 3 MG; Start 12/27/18 at 22:30 Gabapentin (Neurontin) 300 mg TID PO Last administered on 12/28/18 12:38; Admin Dose 300 MG; Start 12/27/18 at 23:00 Levetiracetam (Keppra) 500 mg TID PO Last administered on 12/28/18 12:38; Admin Dose 500 MG; Start 12/27/18 at 23:00 Quetiapine Fumarate (Seroquel) 50 mg HS PO Last administered on 12/27/18 23:38; Admin Dose 50 MG; Start 12/27/18 at 23:00 Naproxen (Naprosyn) 500 mg BID PRN PO MILD PAIN LEVEL 1-3 Last administered on 12/28/18 14:17; Admin Dose 500 MG; Start 12/27/18 at 23:00 Polyethylene Glycol (Miralax) 17 gm DAILY GTB Last administered on 12/28/18at 10:56; Admin Dose 17 GM; Start 12/28/18 at 11:00 VINICIO HOUSTON Dec 28, 2018 19:03
[2018-12-28] MEDS: QUETIAPINE 25 MG TAB PO SCH (20:59)
[2018-12-28] MEDS ORDERED: NON-FORMULARY/PATIENT OWN MED (Quetiapine Fumarate* 50 MG) PO SCH (21:00)
[2018-12-28] MEDS: morphine 2 MG INJ IV PRN (21:37)
[2018-12-29] VITALS (7 sets, daily range): BP systolic 98–127; BP diastolic 58–89; PULSE 60–84; RESP 17–20
[2018-12-29] MEDS: SOD CHLORIDE 0.9% 1,000 ML IV SCH ×3 (00:04→21:21)
[2018-12-29] MEDS: oxyCODONE 15 MG TAB PO PRN ×3 (02:04→17:49)
[2018-12-29] MEDS: METOCLOPRAMIDE 5 MG TAB PO SCH ×3 (06:45→16:49)
[2018-12-29] MEDS: morphine 2 MG INJ IV PRN (07:53)
[2018-12-29] MEDS: RISPERIDONE 1 MG TAB PO SCH ×2 (08:33→21:22)
[2018-12-29] MEDS: GABAPENTIN 300 MG CAP PO SCH ×3 (08:33→21:22)
[2018-12-29] MEDS: CALCIUM CARBONATE 1.25 GM TAB PO SCH (08:33)
[2018-12-29] MEDS: POLYETHYLENE GLYCOL 17 GM PACKET GTB SCH (08:33)
[2018-12-29] MEDS: ESCITALOPRAM 10 MG TAB PO SCH (08:33)
[2018-12-29] MEDS: LEVETIRACETAM 500 MG TAB PO SCH ×3 (08:33→21:22)
[2018-12-29] MEDS: ENOXAPARIN 30 MG/0.3 ML SYG SC SCH (08:45)
--- NOTE | 2018-12-29 10:39 | PSY ---
Date/Time of Note Date/Time of Note DATE: 12/29/18 TIME: 10:35 Psychiatric Subjective Eval Consent Pt consented to telemedicine: No Subjective Evaluation Patient location: inpatient Chief Complaint: glf about 1 week ago, c/o pain/swelling left foot History of present illness Patient is a 43-year-old female with history of asthma, seizure, hypertension, obesity, right foot droop, rhabdomyolysis and cardiomyopathy and altered mental status. [id number] evaluation, patient reports feeling hopeless and helpless reports episodes of anger outbursts, reports occasional auditory hallucinations denies suicidal ideation and contracted for safety. Patient also reports episodes of increased anxiety difficulty sleeping. discussed risk and benefits of antidepressant antipsychotic antianxiety and she verbalized understanding Past psychiatric history Long history of mental illness with hospitalization Hospitalization: other Family History Problems Family History Problems: (1) Family history of cardiac disorder Relations: 33 FATHER Medical history Problems Medical Problems: (1) Abdominal pain Status: Acute (2) Abdominal pain Status: Acute (3) Abdominal pain Status: Acute (4) Acute weakness Status: Acute (5) Altered level of consciousness Status: Acute (6) Cholecystitis Status: Acute (7) Cholecystitis Status: Acute (8) Hypokalemia Status: Acute (9) Leukocytosis Status: Acute (10) Leukocytosis Status: Acute (11) Nausea and vomiting Status: Acute (12) NSTEMI (non-ST elevated myocardial infarction) Status: Acute (13) Rhabdomyolysis Status: Acute (14) Sepsis Status: Acute (15) Supratherapeutic INR Status: Acute (16) Urinary tract infection Status: Acute (17) Vomiting and diarrhea Status: Acute Allergies: Coded Allergies: Sulfa (Sulfonamide Antibiotics) (Unverified Allergy, Unknown, rash/hives, 05/22/17) penicillin V (Unverified Allergy, Unknown, rash/ hives, 05/22/17) sulfamethoxazole (Unverified Allergy, Unknown, rash/hives, 05/22/17) tetracycline (Unverified Allergy, Unknown, rash/hives, 05/22/17) trimethoprim (Unverified Allergy, Unknown, rash/hives, 05/22/17) Substance Abuse Substance abuse history: No Prior substance abuse treatmen: No Social History Marital status: other DPA/Conservatorship: No Psychiatric Objective Eval Review of Systems: Review of Systems: Not Applicable Physical Examination: Physical Examination: Not Applicable Sleep: Adequate Appetite: Decreased Energy: Decreased Interest: Decreased Mental Status Examination: Appearance: Poor Hygiene Eye Contact: Good Psychomotor Activity: Slow Behavior: Cooperative, Suspicious Speech: Clear, Soft AFFECT: Flat Mood: Depressed, Anxious Though Process: Linear Thought Content: Hallucinations Orientation: x4 Insight: Moderate Judgement: Moderate Attention Span: Distractible Laboratory Results Laboratory Tests Test 12/27/18 12:23 12/28/18 05:44 12/29/18 05:26 Urine Color YELLOW Urine Clarity SLIGHTLY CLOUDY Urine pH 8.0 Urine Specific Wright 1.015 Urine Ketones NEGATIVE mg/dL Urine Nitrite NEGATIVE mg/dL Urine Bilirubin NEGATIVE mg/dL Urine Urobilinogen NEGATIVE mg/dL Urine Leukocyte Esterase NEGATIVE Jeevan/ul Urine Microscopic RBC 0 /HPF Urine Microscopic WBC 2 /HPF Urine Squamous Epithelial Cells FEW /HPF Urine Hemoglobin NEGATIVE mg/dL Urine Glucose NEGATIVE mg/dL Urine Total Protein NEGATIVE mg/dl Hemoglobin A1c 5.6 % White Blood Count 17.5 10^3/ul Red Blood Count 4.31 10^6/ul Hemoglobin 10.4 g/dl Hematocrit 37.1 % Mean Corpuscular Volume 86.1 fl Mean Corpuscular Hemoglobin 24.1 pg Mean Corpuscular 28.0 g/dl Hemoglobin Concent Red Cell Distribution Width 19.1 % Platelet Count 709 10^3/UL Mean Platelet Volume 10.2 fl Immature Granulocytes % 0.300 % Neutrophils % 49.1 % Lymphocytes % 38.9 % Monocytes % 6.7 % Eosinophils % 4.4 % Basophils % 0.6 % Nucleated Red Blood Cells % 1.1 /100WBC Immature Granulocytes # 0.060 10^3/ul Neutrophils # 8.6 10^3/ul Lymphocytes # 6.8 10^3/ul Monocytes # 1.2 10^3/ul Eosinophils # 0.8 10^3/ul Basophils # 0.1 10^3/ul Nucleated Red Blood Cells # 0.2 10^3/ul Sodium Level 144 mmol/L Potassium Level 4.4 mmol/L Chloride Level 105 mmol/L Carbon Dioxide Level 34 mmol/L Anion Gap 5 Blood Urea Nitrogen 9 mg/dl Creatinine 0.52 mg/dl Est Glomerular Filtrat > 60 mL/min Rate mL/min Glucose Level 94 mg/dl Calcium Level 8.4 mg/dl Assessment and Plan Assessment/Diagnosis Diagnosis Schizoaffective disorder depressed type Recommendation/Plan Medication Management Risperdal, Xanax, BuSpar, Lexapro Multiple antipsychotics: No Discharge Disposition: Other Legal Status: Voluntary LENIN MOHR NP Dec 29, 2018 10:38
[2018-12-29] MEDS: BUSPIRONE 5 MG TAB PO SCH ×2 (12:26→21:21)
[2018-12-29] MEDS: NAPROXEN 500 MG TAB PO PRN (15:00)
--- NOTE | 2018-12-29 19:05 | PN ---
Date/Time of Note Date/Time of Note DATE: 12/29/18 TIME: 18:48 Assessment/Plan VTE Prophylaxis Risk score (from Ns)>0 risk: 4 SCD applied (from Ns): Yes Pharmacological prophylaxis: LMWH Lines/Catheters IV [facility] (from [facility] Peripheral IV Assessment/Plan Hospital Course Patient is awake alert, complains of left foot pain patient has a swelling and ecchymosis of the left foot post fall patient sustained prior to admission, left ankle x-ray with soft tissue swelling however no fracture dislocation. Continue current care. Assessment/Plan -Altered mental status, however patient currently is awake alert and oriented x4 with no neuro deficit. Dr. Arita is following in neurology consultation. -Systemic inflammatory response syndrome with leukocytosis and generalized weakn ess, blood cultures negative chest x-ray is unremarkable. -Seizure disorder. Continue Keppra. -Schizoaffective disorder depressed type, post evaluation by ARTIE ePtty in psychiatric consultation. Continue Risperdal, Xanax, BuSpar, Lexapro -Bipolar disorder. Continue Lexapro. -Bilateral ankle swelling, venous Doppler is negative for deep venous thrombosis, 2D echo with preserved ejection fraction. -Cardiomyopathy with ejection fraction of 45 per last echo. -History of right foot drop. Continue PT. Further recommendations based on clinical course. Plan of care discussed with Dr. Walden. Result Diagram: 12/29/1852512/29/18 0526 Results 24hrs Laboratory Tests Test 12/29/18 05:26 White Blood Count 17.5 #H Red Blood Count 4.31 Hemoglobin 10.4 L Hematocrit 37.1 Mean Corpuscular Volume 86.1 Mean Corpuscular Hemoglobin 24.1 L Mean Corpuscular Hemoglobin Concent 28.0 L Red Cell Distribution Width 19.1 H Platelet Count 709 H Mean Platelet Volume 10.2 Immature Granulocytes % 0.300 Neutrophils % 49.1 Lymphocytes % 38.9 Monocytes % 6.7 Eosinophils % 4.4 Basophils % 0.6 Nucleated Red Blood Cells % 1.1 H Immature Granulocytes # 0.060 H Neutrophils # 8.6 H Lymphocytes # 6.8 H Monocytes # 1.2 H Eosinophils # 0.8 H Basophils # 0.1 Nucleated Red Blood Cells # 0.2 H Sodium Level 144 Potassium Level 4.4 Chloride Level 105 Carbon Dioxide Level 34 H Anion Gap 5 Blood Urea Nitrogen 9 Creatinine 0.52 Est Glomerular Filtrat Rate mL/min > 60 Glucose Level 94 Calcium Level 8.4 Exam/Review of Systems Exam Vitals Vital Signs Date Temp Pulse Resp B/P (MAP) Pulse Ox O2 O2 Flow FiO2 Time Delivery Rate 12/29/18 97.8 74 20 113/58 98 14:00 (76) 12/29/18 Nasal 2.0 10:29 Cannula Intake and Output 12/28/18 12/28/18 12/29/18 1515:00 23:00 07:00 IntakeIntake Total 600 ml 1200 ml OutputOutput Total 400 ml BalanceBalance 600 ml 1200 ml -400 ml Exam Constitutional: alert, oriented Respiratory: clear to auscultation Cardiovascular: nl pulses Gastrointestinal: soft, non-tender Extremities: normal pulses, other (Bilateral ankle swelling) Neurological: nl mental status Skin: nl turgor Results Results 24hrs Laboratory Tests Test 12/29/18 05:26 White Blood Count 17.5 #H Red Blood Count 4.31 Hemoglobin 10.4 L Hematocrit 37.1 Mean Corpuscular Volume 86.1 Mean Corpuscular Hemoglobin 24.1 L Mean Corpuscular Hemoglobin Concent 28.0 L Red Cell Distribution Width 19.1 H Platelet Count 709 H Mean Platelet Volume 10.2 Immature Granulocytes % 0.300 Neutrophils % 49.1 Lymphocytes % 38.9 Monocytes % 6.7 Eosinophils % 4.4 Basophils % 0.6 Nucleated Red Blood Cells % 1.1 H Immature Granulocytes # 0.060 H Neutrophils # 8.6 H Lymphocytes # 6.8 H Monocytes # 1.2 H Eosinophils # 0.8 H Basophils # 0.1 Nucleated Red Blood Cells # 0.2 H Sodium Level 144 Potassium Level 4.4 Chloride Level 105 Carbon Dioxide Level 34 H Anion Gap 5 Blood Urea Nitrogen 9 Creatinine 0.52 Est Glomerular Filtrat Rate mL/min > 60 Glucose Level 94 Calcium Level 8.4 Medications Medication Current Medications Enoxaparin Sodium (Lovenox) 30 mg DAILY SC Last administered on 12/29/18at 08:45; Admin Dose 30 MG; Start 12/27/18 at 09:00 Morphine Sulfate (morphine) 2 mg Q4H PRN IV SEVERE PAIN LEVEL 7-10 Last administered on 12/29/18at 07:53; Admin Dose 2 MG; Start 12/27/18 at 07:30 Ondansetron HCl (Zofran Inj) 4 mg Q6H PRN IV NAUSEA AND/OR VOMITING; Start 12/27/18 at 07:30 Sodium Chloride 1,000 ml @ 100 mls/hr Q10H IV Last administered on 12/29/18 10:17; Admin Dose 100 MLS/HR; Start 12/27/18 at 08:00 Calcium Carbonate (Oyster Shell Calcium) 1.25 gm DAILY PO Last administered on 12/29/18 08:33; Admin Dose 1.25 GM; Start 12/28/18 at 09:00 Escitalopram Oxalate (Lexapro) 20 mg DAILY PO Last administered on 12/29/18 08:33; Admin Dose 20 MG; Start 12/28/18 at 09:00 Metoclopramide HCl (Reglan) 5 mg AC MEALS PO Last administered on 12/29/18 16:49; Admin Dose 5 MG; Start 12/28/18 at 07:00 Oxycodone HCl (Roxicodone) 15 mg Q6H PRN PO PAIN Last administered on 12/29/18 17:49; Admin Dose 15 MG; Start 12/27/18 at 22:30 Risperidone (Risperdal) 3 mg BID PO Last administered on 12/29/18 08:33; Admin Dose 3 MG; Start 12/27/18 at 22:30 Gabapentin (Neurontin) 300 mg TID PO Last administered on 12/29/18 12:26; Admin Dose 300 MG; Start 12/27/18 at 23:00 Levetiracetam (Keppra) 500 mg TID PO Last administered on 12/29/18 12:26; Admin Dose 500 MG; Start 12/27/18 at 23:00 Quetiapine Fumarate (Seroquel) 50 mg HS PO Last administered on 12/28/18 20:59 ; Admin Dose 50 MG; Start 12/27/18 at 23:00 Naproxen (Naprosyn) 500 mg BID PRN PO MILD PAIN LEVEL 1-3 Last administered on 12/29/18 15:00; Admin Dose 500 MG; Start 12/27/18 at 23:00 Polyethylene Glycol (Miralax) 17 gm DAILY GTB Last administered on 12/29/18 08:33; Admin Dose 17 GM; Start 12/28/18 at 11:00 Buspirone HCl (Buspar) 5 mg BID PO Last administered on 12/29/18at 12:26; Admin Dose 5 MG; Start 12/29/18 at 12:00 Alprazolam (Xanax) 0.5 mg Q12H PRN PO ANXIETY; Start 12/29/18 at 11:00 VINIICO HOUSTON Dec 29, 2018 19:05
[2018-12-29] MEDS: ALPRAZOLAM 0.5 MG TAB PO PRN (21:22)
[2018-12-29] MEDS: QUETIAPINE 25 MG TAB PO SCH (21:22)
[2018-12-30 02:00] VITALS: BP 85/51; PULSE 58; RESP 17
[2018-12-30 02:55] VITALS: BP 115/59; PULSE 60
[2018-12-30] MEDS: SOD CHLORIDE 0.9% 1,000 ML IV SCH (06:00)
[2018-12-30] MEDS: METOCLOPRAMIDE 5 MG TAB PO SCH ×3 (06:19→17:03)
[2018-12-30] MEDS: oxyCODONE 15 MG TAB PO PRN ×4 (06:21→18:54)
[2018-12-30 08:44] VITALS: BP 112/58; PULSE 63; RESP 19
[2018-12-30] MEDS: RISPERIDONE 1 MG TAB PO SCH ×2 (09:09→20:11)
[2018-12-30] MEDS: ESCITALOPRAM 10 MG TAB PO SCH (09:09)
[2018-12-30] MEDS: LEVETIRACETAM 500 MG TAB PO SCH ×3 (09:09→20:10)
[2018-12-30] MEDS: BUSPIRONE 5 MG TAB PO SCH ×2 (09:09→20:13)
[2018-12-30] MEDS: GABAPENTIN 300 MG CAP PO SCH ×3 (09:09→20:11)
[2018-12-30] MEDS: POLYETHYLENE GLYCOL 17 GM PACKET GTB SCH (09:10)
[2018-12-30] MEDS: ENOXAPARIN 30 MG/0.3 ML SYG SC SCH (09:11)
[2018-12-30] MEDS: CALCIUM CARBONATE 1.25 GM TAB PO SCH (09:38)
[2018-12-30 14:39] VITALS: BP 91/53; PULSE 76; RESP 18
--- NOTE | 2018-12-30 15:00 | PN ---
Date/Time of Note Date/Time of Note DATE: 12/30/18 TIME: 14:52 Assessment/Plan VTE Prophylaxis Risk score (from Ns)>0 risk: 4 SCD applied (from [facility] [place]): Yes SCD contraindicated: other Pharmacological prophylaxis: other Pharm contraindication: other Lines/Catheters IV Catheter Type (from [facility]): Peripheral IV Assessment/Plan Hospital Course -Altered mental status, however patient currently is awake alert and oriented x4 with no neuro deficit. Dr. Arita is following in neurology consultation. -Systemic inflammatory response syndrome with leukocytosis and generalized weakness, blood cultures negative chest x-ray is unremarkable. - WBC trended down - cont to monitor -Seizure disorder. Continue Keppra. -Schizoaffective disorder depressed type, post evaluation by ARTIE Petty in psychiatric consultation. Continue Risperdal, Xanax, BuSpar, Lexapro -Bipolar disorder. Continue Lexapro. -Bilateral ankle swelling, venous Doppler is negative for deep venous t hrombosis, 2D echo with preserved ejection fraction. -Cardiomyopathy with ejection fraction of 45 per last echo. -History of right foot drop. Continue PT. Further recommendations based on clinical course. Plan of care discussed with Dr. Walden. Result Diagram: 12/30/18 0707 12/30/18 0707 Results 24hrs Laboratory Tests Test 12/30/18 07:07 White Blood Count 13.8 #H Red Blood Count 4.47 Hemoglobin 10.7 L Hematocrit 37.2 Mean Corpuscular Volume 83.2 Mean Corpuscular Hemoglobin 23.9 L Mean Corpuscular Hemoglobin Concent 28.8 L Red Cell Distribution Width 19.0 H Platelet Count 719 H Mean Platelet Volume 10.5 H Immature Granulocytes % 0.400 Neutrophils % Segmented Neutrophils % (Manual) 55 Band Neutrophils % (Manual) 4 Lymphocytes % Lymphocytes % (Manual) 33 Reactive Lymphocytes % (Manual) 1 H Monocytes % Monocytes % (Manual) 3 Eosinophils % Eosinophils % (Manual) 4 Basophils % Nucleated Red Blood Cells % 1.6 H Immature Granulocytes # 0.060 H Neutrophils # Neutrophils # (Manual) 7.7 H Band Neutrophils # 0.5 Lymphocytes (Manual) 4.5 H Lymphocytes # Reactive Lymphocytes # 0.1 H Monocytes # Monocytes # (Manual) 0.4 Eosinophils # Basophils # Nucleated Red Blood Cells # Platelet Estimate INCREASED Polychromasia 3+ Hypochromasia 1+ Poikilocytosis 2+ Anisocytosis 1+ Target Cells 1+ Ovalocytes 1+ Sodium Level 142 Potassium Level 4.2 Chloride Level 105 Carbon Dioxide Level 33 H Anion Gap 4 L Blood Urea Nitrogen 11 Creatinine 0.50 Est Glomerular Filtrat Rate mL/min > 60 Glucose Level 90 Calcium Level 8.6 Subjective 24 Hr Interval Summary Free Text/Dictation - nad - afebrile - WBC trended down - cont to monitor - no seizure activity reported Eyes: no complaints ENT: no complaints Respiratory: no complaints Cardiovascular: no complaints Gastrointestinal: no complaints Genitourinary: no complaints Musculoskeletal: restricted range of motion Psychological: nl mood/affect Exam/Review of Systems Exam Vitals Vital Signs Date Temp Pulse Resp B/P (MAP) Pulse Ox O2 O2 Flow FiO2 Time Delivery Rate 12/30/18 98.2 76 18 91/53 (66) 94 14:39 12/30/18 Nasal 02:00 Cannula 12/29/18 2.0 10:29 Intake and Output 12/29/18 12/29/18 12/30/18 1515:00 23:00 07:00 IntakeIntake Total 1840 ml 1350 ml 1160 ml BalanceBalance 1840 ml 1350 ml 1160 ml Constitutional: alert, well developed, obese Psych: nl mood/affect Eyes: nl lids, nl sclera ENMT: nl external ears & nose Neck: non-tender Respiratory: clear to auscultation Cardiovascular: nl pulses, other (s1s2) Gastrointestinal: soft, non-tender Musculoskeletal: nl extremities to inspection Extremities: normal pulses Neurological: other (alert/responsive) Lymph: nontender Results Results 24hrs Laboratory Tests Test 12/30/18 07:07 White Blood Count 13.8 #H Red Blood Count 4.47 Hemoglobin 10.7 L Hematocrit 37.2 Mean Corpuscular Volume 83.2 Mean Corpuscular Hemoglobin 23.9 L Mean Corpuscular Hemoglobin Concent 28.8 L Red Cell Distribution Width 19.0 H Platelet Count 719 H Mean Platelet Volume 10.5 H Immature Granulocytes % 0.400 Neutrophils % Segmented Neutrophils % (Manual) 55 Band Neutrophils % (Manual) 4 Lymphocytes % Lymphocytes % (Manual) 33 Reactive Lymphocytes % (Manual) 1 H Monocytes % Monocytes % (Manual) 3 Eosinophils % Eosinophils % (Manual) 4 Basophils % Nucleated Red Blood Cells % 1.6 H Immature Granulocytes # 0.060 H Neutrophils # Neutrophils # (Manual) 7.7 H Band Neutrophils # 0.5 Lymphocytes (Manual) 4.5 H Lymphocytes # Reactive Lymphocytes # 0.1 H Monocytes # Monocytes # (Manual) 0.4 Eosinophils # Basophils # Nucleated Red Blood Cells # Platelet Estimate INCREASED Polychromasia 3+ Hypochromasia 1+ Poikilocytosis 2+ Anisocytosis 1+ Target Cells 1+ Ovalocytes 1+ Sodium Level 142 Potassium Level 4.2 Chloride Level 105 Carbon Dioxide Level 33 H Anion Gap 4 L Blood Urea Nitrogen 11 Creatinine 0.50 Est Glomerular Filtrat Rate mL/min > 60 Glucose Level 90 Calcium Level 8.6 Medications Medication Current Medications Enoxaparin Sodium (Lovenox) 30 mg DAILY SC Last administered on 12/30/18 09:11; Admin Dose 30 MG; Start 12/27/18 at 09:00 Morphine Sulfate (morphine) 2 mg Q4H PRN IV SEVERE PAIN LEVEL 7-10 Last administered on 12/29/18 07:53; Admin Dose 2 MG; Start 12/27/18 at 07:30 Ondansetron HCl (Zofran Inj) 4 mg Q6H PRN IV NAUSEA AND/OR VOMITING; Start 12/27/18 at 07:30 Calcium Carbonate (Oyster Shell Calcium) 1.25 gm DAILY PO Last administered on 12/30/18 09:38; Admin Dose 1.25 GM; Start 12/28/18 at 09:00 Escitalopram Oxalate (Lexapro) 20 mg DAILY PO Last administered on 12/30/18 09:09; Admin Dose 20 MG; Start 12/28/18 at 09:00 Metoclopramide HCl (Reglan) 5 mg AC MEALS PO Last administered on 12/30/18 12:43; Admin Dose 5 MG; Start 12/28/18 at 07:00 Oxycodone HCl (Roxicodone) 15 mg Q6H PRN PO PAIN Last administered on 12/30/18 12:47; Admin Dose 15 MG; Start 12/27/18 at 22:30 Risperidone (Risperdal) 3 mg BID PO Last administered on 12/30/18 09:09; Admin Dose 3 MG; Start 12/27/18 at 22:30 Gabapentin (Neurontin) 300 mg TID PO Last administered on 12/30/18 12:43; Admin Dose 300 MG; Start 12/27/18 at 23:00 Levetiracetam (Keppra) 500 mg TID PO Last administered on 12/30/18 12:43; Admin Dose 500 MG; Start 12/27/18 at 23:00 Quetiapine Fumarate (Seroquel) 50 mg HS PO Last administered on 12/29/18 21:22; Admin Dose 50 MG; Start 12/27/18 at 23:00 Naproxen (Naprosyn) 500 mg BID PRN PO MILD PAIN LEVEL 1-3 Last administered on 12/29/18 15:00; Admin Dose 500 MG; Start 12/27/18 at 23:00 Polyethylene Glycol (Miralax) 17 gm DAILY GTB Last administered on 12/30/18 09:10; Admin Dose 17 GM; Start 12/28/18 at 11:00 Buspirone HCl (Buspar) 5 mg BID PO Last administered on 12/30/18 09:09; Admin Dose 5 MG; Start 12/29/18 at 12:00 Alprazolam (Xanax) 0.5 mg Q12H PRN PO ANXIETY Last administered on 12/29/18 21:22; Admin Dose 0.5 MG; Start 12/29/18 at 11:00 ANABELLE RAGLAND Dec 30, 2018 15:00
[2018-12-30] MEDS: QUETIAPINE 25 MG TAB PO SCH (20:11)
[2018-12-30 20:29] VITALS: BP 106/67; PULSE 62; RESP 16
[2018-12-30] MEDS: ALPRAZOLAM 0.5 MG TAB PO PRN (21:49)
[2018-12-31 02:35] VITALS: BP 95/48; PULSE 65; RESP 18
[2018-12-31] MEDS: oxyCODONE 15 MG TAB PO PRN ×3 (05:20→17:24)
[2018-12-31] MEDS: METOCLOPRAMIDE 5 MG TAB PO SCH ×3 (06:40→17:24)
[2018-12-31 08:00] VITALS: BP 118/56; PULSE 88; RESP 18
[2018-12-31] MEDS: BUSPIRONE 5 MG TAB PO SCH ×2 (08:30→20:47)
[2018-12-31] MEDS: GABAPENTIN 300 MG CAP PO SCH ×3 (08:30→20:47)
[2018-12-31] MEDS: LEVETIRACETAM 500 MG TAB PO SCH ×3 (08:30→20:47)
[2018-12-31] MEDS: CALCIUM CARBONATE 1.25 GM TAB PO SCH (08:30)
[2018-12-31] MEDS: ESCITALOPRAM 10 MG TAB PO SCH (08:30)
[2018-12-31] MEDS: RISPERIDONE 1 MG TAB PO SCH ×2 (08:30→20:47)
[2018-12-31] MEDS: POLYETHYLENE GLYCOL 17 GM PACKET GTB SCH (08:31)
[2018-12-31] MEDS: ENOXAPARIN 30 MG/0.3 ML SYG SC SCH (08:31)
--- NOTE | 2018-12-31 11:44 | PN ---
Date/Time of Note Date/Time of Note DATE: 12/31/18 TIME: 11:44 Assessment/Plan VTE Prophylaxis Risk score (from Ns)>0 risk: 4 SCD applied (from Ns): Yes Pharmacological prophylaxis: LMWH Lines/Catheters IV Catheter Type (from Nrs): Peripheral IV Assessment/Plan Hospital Course -Altered mental status, however patient currently is awake alert and oriented x4 with no neuro deficit. Dr. Arita is following in neurology consultation. -Systemic inflammatory response syndrome with leukocytosis and generalized weakness, blood cultures negative chest x-ray is unremarkable. - WBC trended down - cont to monitor -Seizure disorder. Continue Keppra. -Schizoaffective disorder depressed type, post evaluation by ARTIE Petty in psychiatric consultation. Continue Risperdal, Xanax, BuSpar, Lexapro -Bipolar disorder. Continue Lexapro. -Bilateral ankle swelling, venous Doppler is negative for deep venous thr ombosis, 2D echo with preserved ejection fraction. -Cardiomyopathy with ejection fraction of 45 per last echo. -History of right foot drop. Continue PT. Result Diagram: 12/31/1852512/31/18525 Results 24hrs Laboratory Tests Test 12/31/18 05:26 White Blood Count 14.2 H Red Blood Count 4.38 Hemoglobin 10.7 L Hematocrit 36.2 L Mean Corpuscular Volume 82.6 Mean Corpuscular Hemoglobin 24.4 L Mean Corpuscular Hemoglobin Concent 29.6 L Red Cell Distribution Width 18.5 H Platelet Count 779 H Mean Platelet Volume 10.4 Immature Granulocytes % 0.400 Neutrophils % 58.5 Lymphocytes % 29.5 Monocytes % 5.7 Eosinophils % 5.3 Basophils % 0.6 Nucleated Red Blood Cells % 1.1 H Immature Granulocytes # 0.050 H Neutrophils # 8.3 H Lymphocytes # 4.2 H Monocytes # 0.8 Eosinophils # 0.8 H Basophils # 0.1 Nucleated Red Blood Cells # 0.2 H Sodium Level 143 Potassium Level 4.1 Chloride Level 104 Carbon Dioxide Level 31 Anion Gap 8 Blood Urea Nitrogen 11 Creatinine 0.53 Est Glomerular Filtrat Rate mL/min > 60 Glucose Level 97 Calcium Level 8.9 Subjective 24 Hr Interval Summary Free Text/Dictation Patient has no complaints Exam/Review of Systems Exam Vitals Vital Signs Date Temp Pulse Resp B/P (MAP) Pulse Ox O2 O2 Flow FiO2 Time Delivery Rate 12/31/18 98.0 88 18 118/56 92 08:00 (76) 12/30/18 Nasal 02:00 Cannula 12/29/18 2.0 10:29 Intake and Output 12/30/18 12/30/18 12/31/18 1515:00 23:00 07:00 IntakeIntake Total 1240 ml 350 ml BalanceBalance 1240 ml 350 ml Constitutional: well developed Head: normocephalic, atraumatic Neck: supple Respiratory: clear to auscultation Cardiovascular: regular rate and rhythm Gastrointestinal: soft, non-tender Extremities: normal pulses Results Results 24hrs Laboratory Tests Test 12/31/18 05:26 White Blood Count 14.2 H Red Blood Count 4.38 Hemoglobin 10.7 L Hematocrit 36.2 L Mean Corpuscular Volume 82.6 Mean Corpuscular Hemoglobin 24.4 L Mean Corpuscular Hemoglobin Concent 29.6 L Red Cell Distribution Width 18.5 H Platelet Count 779 H Mean Platelet Volume 10.4 Immature Granulocytes % 0.400 Neutrophils % 58.5 Lymphocytes % 29.5 Monocytes % 5.7 Eosinophils % 5.3 Basophils % 0.6 Nucleated Red Blood Cells % 1.1 H Immature Granulocytes # 0.050 H Neutrophils # 8.3 H Lymphocytes # 4.2 H Monocytes # 0.8 Eosinophils # 0.8 H Basophils # 0.1 Nucleated Red Blood Cells # 0.2 H Sodium Level 143 Potassium Level 4.1 Chloride Level 104 Carbon Dioxide Level 31 Anion Gap 8 Blood Urea Nitrogen 11 Creatinine 0.53 Est Glomerular Filtrat Rate mL/min > 60 Glucose Level 97 Calcium Level 8.9 Medications Medication Current Medications Enoxaparin Sodium (Lovenox) 30 mg DAILY SC Last administered on 12/31/18at 08:31; Admin Dose 30 MG; Start 12/27/18 at 09:00 Morphine Sulfate (morphine) 2 mg Q4H PRN IV SEVERE PAIN LEVEL 7-10 Last administered on 12/29/18at 07:53; Admin Dose 2 MG; Start 12/27/18 at 07:30 Ondansetron HCl (Zofran Inj) 4 mg Q6H PRN IV NAUSEA AND/OR VOMITING; Start 12/27/18 at 07:30 Calcium Carbonate (Oyster Shell Calcium) 1.25 gm DAILY PO Last administered on 12/31/18 08:30; Admin Dose 1.25 GM; Start 12/28/18 at 09:00 Escitalopram Oxalate (Lexapro) 20 mg DAILY PO Last administered on 12/31/18 08:30; Admin Dose 20 MG; Start 12/28/18 at 09:00 Metoclopramide HCl (Reglan) 5 mg AC MEALS PO Last administered on 12/31/18 11:21; Admin Dose 5 MG; Start 12/28/18 at 07:00 Oxycodone HCl (Roxicodone) 15 mg Q6H PRN PO PAIN Last administered on 12/31/18 11:23; Admin Dose 15 MG; Start 12/27/18 at 22:30 Risperidone (Risperdal) 3 mg BID PO Last administered on 12/31/18 08:30; Admin Dose 3 MG; Start 12/27/18 at 22:30 Gabapentin (Neurontin) 300 mg TID PO Last administered on 12/31/18 08:30; Admin Dose 300 MG; Start 12/27/18 at 23:00 Levetiracetam (Keppra) 500 mg TID PO Last administered on 12/31/18 08:30; Admin Dose 500 MG; Start 12/27/18 at 23:00 Quetiapine Fumarate (Seroquel) 50 mg HS PO Last administered on 12/30/18 20:11; Admin Dose 50 MG; Start 12/27/18 at 23:00 Naproxen (Naprosyn) 500 mg BID PRN PO MILD PAIN LEVEL 1-3 Last administered on 12/29/18 15:00; Admin Dose 500 MG; Start 12/27/18 at 23:00 Polyethylene Glycol (Miralax) 17 gm DAILY GTB Last administered on 12/30/18 09:10; Admin Dose 17 GM; Start 12/28/18 at 11:00 Buspirone HCl (Buspar) 5 mg BID PO Last administered on 12/31/18 08:30; Admin Dose 5 MG; Start 12/29/18 at 12:00 Alprazolam (Xanax) 0.5 mg Q12H PRN PO ANXIETY Last administered on 12/30/18 21:49; Admin Dose 0.5 MG; Start 12/29/18 at 11:00 JAN NAVARRETE 13, 2019 11:44
[2018-12-31 13:59] VITALS: BP 93/48; PULSE 78; RESP 18
[2018-12-31 20:38] VITALS: BP 118/78; PULSE 94; RESP 18
[2018-12-31] MEDS: QUETIAPINE 25 MG TAB PO SCH (20:47)
[2018-12-31] MEDS: ALPRAZOLAM 0.5 MG TAB PO PRN (20:49)
[2019-01-01 02:31] VITALS: BP 113/71; PULSE 85; RESP 18
[2019-01-01] MEDS: METOCLOPRAMIDE 5 MG TAB PO SCH ×3 (06:32→17:24)
[2019-01-01] MEDS: oxyCODONE 15 MG TAB PO PRN ×3 (06:35→18:43)
[2019-01-01 07:30] VITALS: BP 115/58; PULSE 86; RESP 16
[2019-01-01] MEDS: BUSPIRONE 5 MG TAB PO SCH ×2 (08:22→20:28)
[2019-01-01] MEDS: CALCIUM CARBONATE 1.25 GM TAB PO SCH (08:23)
[2019-01-01] MEDS: POLYETHYLENE GLYCOL 17 GM PACKET GTB SCH (08:23)
[2019-01-01] MEDS: LEVETIRACETAM 500 MG TAB PO SCH ×3 (08:23→20:28)
[2019-01-01] MEDS: RISPERIDONE 1 MG TAB PO SCH ×2 (08:23→21:06)
[2019-01-01] MEDS: GABAPENTIN 300 MG CAP PO SCH ×3 (08:23→20:28)
[2019-01-01] MEDS: ESCITALOPRAM 20 MG TAB PO SCH (08:23)
[2019-01-01] MEDS: ENOXAPARIN 30 MG/0.3 ML SYG SC SCH (08:25)
--- NOTE | 2019-01-01 11:14 | PN ---
Date/Time of Note Date/Time of Note DATE: 01/01/19 TIME: 11:14 Assessment/Plan VTE Prophylaxis Risk score (from Ns)>0 risk: 4 SCD applied (from Ns): Yes Pharmacological prophylaxis: LMWH Lines/Catheters IV Catheter Type (from Nrsg): Peripheral IV Assessment/Plan Hospital Course -Altered mental status, however patient currently is awake alert and oriented x4 with no neuro deficit. Dr. Arita is following in neurology consultation. -Systemic inflammatory response syndrome with leukocytosis and generalized weakness, blood cultures negative chest x-ray is unremarkable. - WBC trended down - cont to monitor -Seizure disorder. Continue Keppra. -Schizoaffective disorder depressed type, post evaluation by ARTIE Petty in psychiatric consultation. Continue Risperdal, Xanax, BuSpar, Lexapro -Bipolar disorder. Continue Lexapro. -Bilateral ankle swelling, venous Doppler is negative for deep venous thr ombosis, 2D echo with preserved ejection fraction. -Cardiomyopathy with ejection fraction of 45 per last echo. -History of right foot drop. Continue PT. Result Diagram: 12/31/18 0512/31/18525 Subjective 24 Hr Interval Summary Free Text/Dictation Patient complain of pain in left ankle where she fell. Previous xrays were negative Exam/Review of Systems Exam Vitals Vital Signs Date Temp Pulse Resp B/P (MAP) Pulse Ox O2 O2 Flow FiO2 Time Delivery Rate 01/01/19 97.9 86 16 115/58 94 Room Air 07:30 (77) 12/29/18 2.0 10:29 Intake and Output 12/31/18 12/31/18 01/01/19 1515:00 23:00 07:00 IntakeIntake Total 920 ml 558 ml BalanceBalance 920 ml 558 ml Constitutional: well developed Head: normocephalic, atraumatic Neck: supple Respiratory: diminished breath sounds Cardiovascular: regular rate and rhythm Gastrointestinal: soft, non-tender Extremities: normal pulses Medications Medication Current Medications Enoxaparin Sodium (Lovenox) 30 mg DAILY SC Last administered on 01/01/19at 08:25; Admin Dose 30 MG; Start 12/27/18 at 09:00 Morphine Sulfate (morphine) 2 mg Q4H PRN IV SEVERE PAIN LEVEL 7-10 Last administered on 12/29/18at 07:53; Admin Dose 2 MG; Start 12/27/18 at 07:30 Ondansetron HCl (Zofran Inj) 4 mg Q6H PRN IV NAUSEA AND/OR VOMITING; Start 12/27/18 at 07:30 Calcium Carbonate (Oyster Shell Calcium) 1.25 gm DAILY PO Last administered on 01/01/19 08:23; Admin Dose 1.25 GM; Start 12/28/18 at 09:00 Metoclopramide HCl (Reglan) 5 mg AC MEALS PO Last administered on 01/01/19 06:32; Admin Dose 5 MG; Start 12/28/18 at 07:00 Oxycodone HCl (Roxicodone) 15 mg Q6H PRN PO PAIN Last administered on 01/01/19 06:35; Admin Dose 15 MG; Start 12/27/18 at 22:30 Risperidone (Risperdal) 3 mg BID PO Last administered on 01/01/19 08:23; Admin Dose 3 MG; Start 12/27/18 at 22:30 Gabapentin (Neurontin) 300 mg TID PO Last administered on 01/01/19 08:23; Admin Dose 300 MG; Start 12/27/18 at 23:00 Levetiracetam (Keppra) 500 mg TID PO Last administered on 01/01/19 08:23; Admin Dose 500 MG; Start 12/27/18 at 23:00 Quetiapine Fumarate (Seroquel) 50 mg HS PO Last administered on 12/31/18 20:47; Admin Dose 50 MG; Start 12/27/18 at 23:00 Naproxen (Naprosyn) 500 mg BID PRN PO MILD PAIN LEVEL 1-3 Last administered on 12/29/18 15:00; Admin Dose 500 MG; Start 12/27/18 at 23:00 Polyethylene Glycol (Miralax) 17 gm DAILY GTB Last administered on 12/30/18 09:10; Admin Dose 17 GM; Start 12/28/18 at 11:00 Buspirone HCl (Buspar) 5 mg BID PO Last administered on 01/01/19 08:22; Admin Dose 5 MG; Start 12/29/18 at 12:00 Alprazolam (Xanax) 0.5 mg Q12H PRN PO ANXIETY Last administered on 12/31/18at 20:49; Admin Dose 0.5 MG; Start 12/29/18 at 11:00 Escitalopram Oxalate (Lexapro) 20 mg DAILY PO Last administered on 01/01/19at 08:23; Admin Dose 20 MG; Start 01/01/19 at 09:00 JAN NAVARRETE Jan 01, 2019 11:14
[2019-01-01 14:13] VITALS: BP 102/52; PULSE 78; RESP 17
[2019-01-01] MEDS: QUETIAPINE 25 MG TAB PO SCH (20:28)
[2019-01-01] MEDS: ALPRAZOLAM 0.5 MG TAB PO PRN (20:28)
[2019-01-01 20:38] VITALS: BP 116/56; PULSE 89; RESP 18
[2019-01-02 02:52] VITALS: BP 97/57; PULSE 64; RESP 17
[2019-01-02] MEDS: METOCLOPRAMIDE 5 MG TAB PO SCH ×3 (06:00→18:10)
[2019-01-02] MEDS: oxyCODONE 15 MG TAB PO PRN ×3 (06:08→18:10)
[2019-01-02 08:09] VITALS: BP 106/53; PULSE 70; RESP 16
[2019-01-02] MEDS: ESCITALOPRAM 20 MG TAB PO SCH (08:20)
[2019-01-02] MEDS: LEVETIRACETAM 500 MG TAB PO SCH ×3 (08:20→20:58)
[2019-01-02] MEDS: BUSPIRONE 5 MG TAB PO SCH ×2 (08:20→20:58)
[2019-01-02] MEDS: GABAPENTIN 300 MG CAP PO SCH ×3 (08:20→20:58)
[2019-01-02] MEDS: CALCIUM CARBONATE 1.25 GM TAB PO SCH (08:20)
[2019-01-02] MEDS: ENOXAPARIN 30 MG/0.3 ML SYG SC SCH (08:22)
[2019-01-02] MEDS: POLYETHYLENE GLYCOL 17 GM PACKET GTB SCH (08:23)
[2019-01-02] MEDS: RISPERIDONE 2 MG TAB PO SCH ×2 (09:31→20:57)
[2019-01-02 14:22] VITALS: BP 104/60; RESP 16
[2019-01-02] MEDS: QUETIAPINE 25 MG TAB PO SCH (20:57)
[2019-01-02] MEDS: ALPRAZOLAM 0.5 MG TAB PO PRN (20:58)
[2019-01-02 21:54] VITALS: BP 111/56; PULSE 78; RESP 16
--- NOTE | 2019-01-02 22:20 | PN ---
Date/Time of Note Date/Time of Note DATE: 01/02/19 TIME: 22:17 Assessment/Plan VTE Prophylaxis Risk score (from Ns)>0 risk: 5 SCD applied (from Ns): Yes Pharmacological prophylaxis: LMWH Lines/Catheters IV Catheter Type (from [facility]): Peripheral IV Assessment/Plan Hospital Course Patient is awake alert, stable VS, no fever. Assessment/Plan -Altered mental status, however patient currently is awake alert and oriented x4 with no neuro deficit. Dr. Arita is following in neurology consultation. -Systemic inflammatory response syndrome with leukocytosis and generalized weakness, blood cultures negative chest x-ray is unremarkable. -Seizure disorder. Continue Keppra. -Schizoaffective disorder depressed type, post evaluation by ARTIE Petty in psychiatric consultation. Continue Risperdal, Xanax, BuSpar, Lexapro -Bipolar disorder. Continue Lexapro. -Bilateral ankle swelling, venous Doppler is negative for deep venous thrombosis, 2D echo with preserved ejection fraction. -Cardiomyopathy with ejection fraction of 45 per last echo. -Left foot swelling and ecchymosis of the left foot post fall patient sustained prior to admission, left ankle x-ray with soft tissue swelling however no fracture dislocation. -History of right foot drop. Continue PT. Further recommendations based on clinical course. Plan of care discussed with Dr. Walden. Result Diagram: 12/31/1852512/31/18525 Exam/Review of Systems Exam Vitals Vital Signs Date Temp Pulse Resp B/P (MAP) Pulse Ox O2 O2 Flow FiO2 Time Delivery Rate 01/02/19 98.3 78 16 111/56 95 Room Air 21:54 (74) 12/29/18 2.0 10:29 Intake and Output 01/01/19 01/01/19 01/02/19 1515:00 23:00 07:00 IntakeIntake Total 560 ml BalanceBalance 560 ml Exam Constitutional: alert, oriented Respiratory: clear to auscultation Cardiovascular: nl pulses Gastrointestinal: soft, non-tender Extremities: normal pulses, other (Bilateral ankle swelling) Neurological: nl mental status Skin: nl turgor Medications Medication Current Medications Morphine Sulfate (morphine) 2 mg Q4H PRN IV SEVERE PAIN LEVEL 7-10 Last administered on 12/29/18at 07:53; Admin Dose 2 MG; Start 12/27/18 at 07:30 Ondansetron HCl (Zofran Inj) 4 mg Q6H PRN IV NAUSEA AND/OR VOMITING; Start 12/27/18 at 07:30 Calcium Carbonate (Oyster Shell Calcium) 1.25 gm DAILY PO Last administered on 01/02/19 08:20; Admin Dose 1.25 GM; Start 12/28/18 at 09:00 Metoclopramide HCl (Reglan) 5 mg AC MEALS PO Last administered on 01/02/19 18:10; Admin Dose 5 MG; Start 12/28/18 at 07:00 Oxycodone HCl (Roxicodone) 15 mg Q6H PRN PO PAIN Last administered on 01/02/19 18:10; Admin Dose 15 MG; Start 12/27/18 at 22:30 Gabapentin (Neurontin) 300 mg TID PO Last administered on 01/02/19 20:58; Admin Dose 300 MG; Start 12/27/18 at 23:00 Levetiracetam (Keppra) 500 mg TID PO Last administered on 01/02/19 20:58; Admin Dose 500 MG; Start 12/27/18 at 23:00 Quetiapine Fumarate (Seroquel) 50 mg HS PO Last administered on 01/02/19 20:57; Admin Dose 50 MG; Start 12/27/18 at 23:00 Naproxen (Naprosyn) 500 mg BID PRN PO MILD PAIN LEVEL 1-3 Last administered on 12/29/18 15:00; Admin Dose 500 MG; Start 12/27/18 at 23:00 Polyethylene Glycol (Miralax) 17 gm DAILY GTB Last administered on 12/30/18 09:10; Admin Dose 17 GM; Start 12/28/18 at 11:00 Buspirone HCl (Buspar) 5 mg BID PO Last administered on 01/02/19 20:58; Admin Dose 5 MG; Start 12/29/18 at 12:00 Alprazolam (Xanax) 0.5 mg Q12H PRN PO ANXIETY Last administered on 01/02/19 20:58; Admin Dose 0.5 MG; Start 12/29/18 at 11:00 Escitalopram Oxalate (Lexapro) 20 mg DAILY PO Last administered on 7/15/19at 08:20; Admin Dose 20 MG; Start 01/01/19 at 09:00 Risperidone (Risperdal) 3 mg BID PO Last administered on 01/02/19at 20:57; Admin Dose 3 MG; Start 01/02/19 at 09:00 Enoxaparin Sodium (Lovenox) 40 mg DAILY SC ; Start 01/03/19 at 09:00 VINICIO HOUSTON Jan 02, 2019 22:20
[2019-01-03 01:44] VITALS: BP 106/56; PULSE 86; RESP 18
[2019-01-03] MEDS: METOCLOPRAMIDE 5 MG TAB PO SCH ×3 (06:28→18:11)
[2019-01-03] MEDS: oxyCODONE 15 MG TAB PO PRN ×3 (06:28→18:11)
[2019-01-03 07:30] VITALS: BP 119/61; PULSE 71; RESP 17
[2019-01-03] MEDS: BUSPIRONE 5 MG TAB PO SCH ×2 (08:29→20:23)
[2019-01-03] MEDS: GABAPENTIN 300 MG CAP PO SCH ×3 (08:30→20:24)
[2019-01-03] MEDS: CALCIUM CARBONATE 1.25 GM TAB PO SCH (08:30)
[2019-01-03] MEDS: ESCITALOPRAM 20 MG TAB PO SCH (08:30)
[2019-01-03] MEDS: RISPERIDONE 2 MG TAB PO SCH ×2 (08:30→20:23)
[2019-01-03] MEDS: ENOXAPARIN 40 MG/0.4 ML SYG SC SCH (08:31)
[2019-01-03] MEDS: LEVETIRACETAM 500 MG TAB PO SCH ×3 (08:31→20:24)
[2019-01-03] MEDS: POLYETHYLENE GLYCOL 17 GM PACKET GTB SCH (08:32)
[2019-01-03 13:11] VITALS: BP 109/52; PULSE 78; RESP 18
--- NOTE | 2019-01-03 19:35 | PN ---
Date/Time of Note Date/Time of Note DATE: 01/03/19 TIME: 19:32 Assessment/Plan VTE Prophylaxis Risk score (from Ns)>0 risk: 3 SCD applied (from Ns): Yes Pharmacological prophylaxis: LMWH Lines/Catheters IV Catheter Type (from [facility]): Peripheral IV Assessment/Plan Hospital Course Patient complains of the left leg pain, left ankle is swollen no erythema will obtain MRI of the left ankle for further evaluation, pending prison facility for [facility]. Assessment/Plan -Altered mental status, however patient currently is awake alert and oriented x4 with no neuro deficit. Dr. Arita is following in neurology consultation. -Systemic inflammatory response syndrome with leukocytosis and generalized weakness, blood cultures negative chest x-ray is unremarkable. -Seizure disorder. Continue Keppra. -Schizoaffective disorder depressed type, post evaluation by ARTIE Petty in ps ychiatric consultation. Continue Risperdal, Xanax, BuSpar, Lexapro -Bipolar disorder. Continue Lexapro. -Bilateral ankle swelling, venous Doppler is negative for deep venous thrombosis, 2D echo with preserved ejection fraction. -Cardiomyopathy with ejection fraction of 45 per last echo. -Left foot swelling and ecchymosis of the left foot post fall patient sustained prior to admission, left ankle x-ray with soft tissue swelling however no fracture dislocation. -History of right foot drop. Continue PT. Further recommendations based on clinical course. Plan of care discussed with Dr. Walden. Result Diagram: 01/03/19 0446 01/03/19 0446 Results 24hrs Laboratory Tests Test 01/03/19 04:46 White Blood Count 14.7 H Red Blood Count 4.57 Hemoglobin 10.8 L Hematocrit 39.0 Mean Corpuscular Volume 85.3 Mean Corpuscular Hemoglobin 23.6 L Mean Corpuscular Hemoglobin Concent 27.7 L Red Cell Distribution Width 19.0 H Platelet Count 819 H Mean Platelet Volume 10.1 Immature Granulocytes % 0.400 Neutrophils % 56.5 Lymphocytes % 32.4 Monocytes % 6.4 Eosinophils % 3.8 Basophils % 0.5 Nucleated Red Blood Cells % 0.1 H Immature Granulocytes # 0.060 H Neutrophils # 8.3 H Lymphocytes # 4.8 H Monocytes # 0.9 Eosinophils # 0.6 H Basophils # 0.1 Nucleated Red Blood Cells # 0.0 Sodium Level 140 Potassium Level 4.4 Chloride Level 102 Carbon Dioxide Level 32 H Anion Gap 6 Blood Urea Nitrogen 14 Creatinine 0.57 Est Glomerular Filtrat Rate mL/min > 60 Glucose Level 96 Calcium Level 9.1 Magnesium Level 2.2 Exam/Review of Systems Exam Vitals Vital Signs Date Temp Pulse Resp B/P (MAP) Pulse Ox O2 O2 Flow FiO2 Time Delivery Rate 01/03/19 98.1 78 18 109/52 96 13:11 (71) 01/02/19 Room Air 21:54 Intake and Output 01/02/19 01/02/19 01/03/19 1515:00 23:00 07:00 IntakeIntake Total 660 ml BalanceBalance 660 ml Exam Constitutional: alert, oriented Respiratory: clear to auscultation Cardiovascular: nl pulses Gastrointestinal: soft, non-tender Extremities: normal pulses, other (Bilateral ankle swelling) Neurological: nl mental status Skin: nl turgor Results Results 24hrs Laboratory Tests Test 01/03/19 04:46 White Blood Count 14.7 H Red Blood Count 4.57 Hemoglobin 10.8 L Hematocrit 39.0 Mean Corpuscular Volume 85.3 Mean Corpuscular Hemoglobin 23.6 L Mean Corpuscular Hemoglobin Concent 27.7 L Red Cell Distribution Width 19.0 H Platelet Count 819 H Mean Platelet Volume 10.1 Immature Granulocytes % 0.400 Neutrophils % 56.5 Lymphocytes % 32.4 Monocytes % 6.4 Eosinophils % 3.8 Basophils % 0.5 Nucleated Red Blood Cells % 0.1 H Immature Granulocytes # 0.060 H Neutrophils # 8.3 H Lymphocytes # 4.8 H Monocytes # 0.9 Eosinophils # 0.6 H Basophils # 0.1 Nucleated Red Blood Cells # 0.0 Sodium Level 140 Potassium Level 4.4 Chloride Level 102 Carbon Dioxide Level 32 H Anion Gap 6 Blood Urea Nitrogen 14 Creatinine 0.57 Est Glomerular Filtrat Rate mL/min > 60 Glucose Level 96 Calcium Level 9.1 Magnesium Level 2.2 Medications Medication Current Medications Morphine Sulfate (morphine) 2 mg Q4H PRN IV SEVERE PAIN LEVEL 7-10 Last administered on 12/29/18at 07:53; Admin Dose 2 MG; Start 12/27/18 at 07:30 Ondansetron HCl (Zofran Inj) 4 mg Q6H PRN IV NAUSEA AND/OR VOMITING; Start 12/27/18 at 07:30 Calcium Carbonate (Oyster Shell Calcium) 1.25 gm DAILY PO Last administered on 01/03/19 08:30; Admin Dose 1.25 GM; Start 12/28/18 at 09:00 Metoclopramide HCl (Reglan) 5 mg AC MEALS PO Last administered on 01/03/19 18:11; Admin Dose 5 MG; Start 12/28/18 at 07:00 Oxycodone HCl (Roxicodone) 15 mg Q6H PRN PO PAIN Last administered on 01/03/19 18:11; Admin Dose 15 MG; Start 12/27/18 at 22:30 Gabapentin (Neurontin) 300 mg TID PO Last administered on 01/03/19 12:25; Admin Dose 300 MG; Start 12/27/18 at 23:00 Levetiracetam (Keppra) 500 mg TID PO Last administered on 01/03/19 12:25; Admin Dose 500 MG; Start 12/27/18 at 23:00 Quetiapine Fumarate (Seroquel) 50 mg HS PO Last administered on 01/02/19 20:57; Admin Dose 50 MG; Start 12/27/18 at 23:00 Naproxen (Naprosyn) 500 mg BID PRN PO MILD PAIN LEVEL 1-3 Last administered on 12/29/18 15:00; Admin Dose 500 MG; Start 12/27/18 at 23:00 Polyethylene Glycol (Miralax) 17 gm DAILY GTB Last administered on 12/30/18 09:10; Admin Dose 17 GM; Start 12/28/18 at 11:00 Buspirone HCl (Buspar) 5 mg BID PO Last administered on 01/03/19 08:29; Admin Dose 5 MG; Start 12/29/18 at 12:00 Alprazolam (Xanax) 0.5 mg Q12H PRN PO ANXIETY Last administered on 01/02/19 20 :58; Admin Dose 0.5 MG; Start 12/29/18 at 11:00 Escitalopram Oxalate (Lexapro) 20 mg DAILY PO Last administered on 01/03/19 08:30; Admin Dose 20 MG; Start 01/01/19 at 09:00 Risperidone (Risperdal) 3 mg BID PO Last administered on 7/16/19at 08:30; Admin Dose 3 MG; Start 01/02/19 at 09:00 Enoxaparin Sodium (Lovenox) 40 mg DAILY SC Last administered on 01/03/19at 08:31; Admin Dose 40 MG; Start 01/03/19 at 09:00 VINICIO HOUSTON Jan 03, 2019 19:35
[2019-01-03 20:14] VITALS: BP 104/54; PULSE 70; RESP 17
[2019-01-03] MEDS: ALPRAZOLAM 0.5 MG TAB PO PRN (20:23)
[2019-01-03] MEDS: QUETIAPINE 25 MG TAB PO SCH (20:23)
[2019-01-04 02:34] VITALS: BP 111/59; PULSE 73; RESP 19
[2019-01-04] MEDS: oxyCODONE 15 MG TAB PO PRN ×3 (06:24→18:27)
[2019-01-04] MEDS: METOCLOPRAMIDE 5 MG TAB PO SCH ×3 (06:24→17:07)
[2019-01-04 07:47] VITALS: BP 85/48; PULSE 89; RESP 15
[2019-01-04] MEDS: POLYETHYLENE GLYCOL 17 GM PACKET GTB SCH (08:26)
[2019-01-04] MEDS: RISPERIDONE 2 MG TAB PO SCH ×2 (08:27→20:41)
[2019-01-04] MEDS: LEVETIRACETAM 500 MG TAB PO SCH ×3 (08:28→20:41)
[2019-01-04] MEDS: GABAPENTIN 300 MG CAP PO SCH ×3 (08:28→20:41)
[2019-01-04] MEDS: ESCITALOPRAM 20 MG TAB PO SCH (08:28)
[2019-01-04] MEDS: BUSPIRONE 5 MG TAB PO SCH ×2 (08:28→20:41)
[2019-01-04] MEDS: CALCIUM CARBONATE 1.25 GM TAB PO SCH (08:28)
[2019-01-04] MEDS: ENOXAPARIN 40 MG/0.4 ML SYG SC SCH (08:29)
[2019-01-04 13:56] VITALS: BP 115/53; PULSE 87; RESP 14
--- NOTE | 2019-01-04 14:59 | PN ---
Date/Time of Note Date/Time of Note DATE: 01/04/19 TIME: 14:55 Assessment/Plan VTE Prophylaxis Risk score (from Ns)>0 risk: 3 SCD applied (from Ns): Yes Pharmacological prophylaxis: LMWH Lines/Catheters IV Catheter Type (from [facility]): Peripheral IV Assessment/Plan Hospital Course MRI of the left ankle revealed acute nondisplaced distal fibular and posterior malleolar fractures. Dr. Aaron is asked to see patient in orthopedic surgery evaluation. No weightbearing on left foot. Assessment/Plan -Altered mental status, however patient currently is awake alert and oriented x4 with no neuro deficit. Dr. Arita is following in neurology consultation. -Systemic inflammatory response syndrome with leukocytosis and generalized weakness, blood cultures negative chest x-ray is unremarkable. -Seizure disorder. Continue Keppra. -Schizoaffective disorder depressed type, post evaluation by ARTIE Petty in psychiatric consultation. Continue Risperdal, Xanax, BuSpar, Lexapro -Bipolar disorder. Continue Lexapro. -Bilateral ankle swelling, venous Doppler is negative for deep venous thromb osis, 2D echo with preserved ejection fraction. -Cardiomyopathy with ejection fraction of 45 per last echo. -Left foot swelling and ecchymosis of the left foot post fall patient sustained prior to admission, left ankle x-ray with soft tissue swelling however no fracture dislocation. -History of right foot drop. Continue PT. Further recommendations based on clinical course. Plan of care discussed with Dr. Walden. Result Diagram: 01/03/1944501/03/196 Exam/Review of Systems Exam Vitals Vital Signs Date Temp Pulse Resp B/P (MAP) Pulse Ox O2 O2 Flow FiO2 Time Delivery Rate 01/04/19 98.0 87 14 115/53 97 Nasal 13:56 (73) Cannula Exam Constitutional: alert, oriented Respiratory: clear to auscultation Cardiovascular: nl pulses Gastrointestinal: soft, non-tender Extremities: normal pulses, other (Bilateral ankle swelling, left ankle tenderness, no erythema) Neurological: nl mental status Skin: nl turgor Medications Medication Current Medications Morphine Sulfate (morphine) 2 mg Q4H PRN IV SEVERE PAIN LEVEL 7-10 Last administered on 12/29/18at 07:53; Admin Dose 2 MG; Start 12/27/18 at 07:30 Ondansetron HCl (Zofran Inj) 4 mg Q6H PRN IV NAUSEA AND/OR VOMITING; Start 12/27/18 at 07:30 Calcium Carbonate (Oyster Shell Calcium) 1.25 gm DAILY PO Last administered on 01/04/19 08:28; Admin Dose 1.25 GM; Start 12/28/18 at 09:00 Metoclopramide HCl (Reglan) 5 mg AC MEALS PO Last administered on 01/04/19 12:22; Admin Dose 5 MG; Start 12/28/18 at 07:00 Oxycodone HCl (Roxicodone) 15 mg Q6H PRN PO PAIN Last administered on 01/04/19 12:24; Admin Dose 15 MG; Start 12/27/18 at 22:30 Gabapentin (Neurontin) 300 mg TID PO Last administered on 01/04/19 12:23; Admin Dose 300 MG; Start 12/27/18 at 23:00 Levetiracetam (Keppra) 500 mg TID PO Last administered on 01/04/19 12:22; Admin Dose 500 MG; Start 12/27/18 at 23:00 Quetiapine Fumarate (Seroquel) 50 mg HS PO Last administered on 01/03/19 20: 23; Admin Dose 50 MG; Start 12/27/18 at 23:00 Naproxen (Naprosyn) 500 mg BID PRN PO MILD PAIN LEVEL 1-3 Last administered on 12/29/18 15:00; Admin Dose 500 MG; Start 12/27/18 at 23:00 Polyethylene Glycol (Miralax) 17 gm DAILY GTB Last administered on 12/30/18 09:10; Admin Dose 17 GM; Start 12/28/18 at 11:00 Buspirone HCl (Buspar) 5 mg BID PO Last administered on 01/04/19 08:28; Admin Dose 5 MG; Start 12/29/18 at 12:00 Alprazolam (Xanax) 0.5 mg Q12H PRN PO ANXIETY Last administered on 01/03/19 20:23; Admin Dose 0.5 MG; Start 12/29/18 at 11:00 Escitalopram Oxalate (Lexapro) 20 mg DAILY PO Last administered on 01/04/19 08:28; Admin Dose 20 MG; Start 01/01/19 at 09:00 Risperidone (Risperdal) 3 mg BID PO Last administered on 01/04/19at 08:27; Admin Dose 3 MG; Start 01/02/19 at 09:00 Enoxaparin Sodium (Lovenox) 40 mg DAILY SC Last administered on 01/04/19at 08:29; Admin Dose 40 MG; Start 01/03/19 at 09:00 VINICIO HOUSTON Jan 04, 2019 14:59
[2019-01-04 20:00] VITALS: BP 90/43; PULSE 95; RESP 17
[2019-01-04] MEDS: QUETIAPINE 25 MG TAB PO SCH (20:42)
[2019-01-04] MEDS: ALPRAZOLAM 0.5 MG TAB PO PRN (20:42)
[2019-01-05 02:00] VITALS: BP 102/50; PULSE 89; PULSE 92; RESP 18
[2019-01-05] MEDS: oxyCODONE 15 MG TAB PO PRN ×3 (06:43→18:45)
[2019-01-05] MEDS: METOCLOPRAMIDE 5 MG TAB PO SCH ×3 (06:43→17:20)
[2019-01-05 07:32] VITALS: BP 112/52; PULSE 79; RESP 18
[2019-01-05] MEDS: POLYETHYLENE GLYCOL 17 GM PACKET GTB SCH (08:06)
[2019-01-05] MEDS: BUSPIRONE 5 MG TAB PO SCH ×2 (08:07→20:58)
[2019-01-05] MEDS: LEVETIRACETAM 500 MG TAB PO SCH ×3 (08:07→20:58)
[2019-01-05] MEDS: ESCITALOPRAM 20 MG TAB PO SCH (08:08)
[2019-01-05] MEDS: RISPERIDONE 2 MG TAB PO SCH ×2 (08:08→20:59)
[2019-01-05] MEDS: GABAPENTIN 300 MG CAP PO SCH ×3 (08:08→20:58)
[2019-01-05] MEDS: CALCIUM CARBONATE 1.25 GM TAB PO SCH (08:08)
[2019-01-05] MEDS: ENOXAPARIN 40 MG/0.4 ML SYG SC SCH (08:10)
[2019-01-05 14:00] VITALS: BP 106/53; PULSE 79; RESP 18
--- NOTE | 2019-01-05 15:29 | PN ---
Date/Time of Note Date/Time of Note DATE: 01/05/19 TIME: 15:24 Assessment/Plan VTE Prophylaxis Risk score (from Ns)>0 risk: 5 SCD applied (from Ns): Yes Pharmacological prophylaxis: LMWH Lines/Catheters IV [facility] (from [facility]): Peripheral IV Assessment/Plan Hospital Course Patient remains hemodynamically stable, afebrile, compliant with nonweightbearing on the left foot, pending orthopedic surgery evaluation. Assessment/Plan -Acute nondisplaced distal fibular and posterior malleolar fractures per MRI of the left foot. Pending evaluation by orthopedic surgeon Dr. Aaron. No weightbearing on left foot. -Altered mental status, resolved. Dr. Arita is following in neurology c onsultation. -Systemic inflammatory response syndrome with leukocytosis most likely secondary to left foot fracture. Blood cultures negative, chest x-ray is unremarkable. -Seizure disorder. Continue Keppra. -Schizoaffective disorder depressed type, post evaluation by ARTIE Petty in psychiatric consultation. Continue Risperdal, Xanax, BuSpar, Lexapro. -Bipolar disorder. Continue Lexapro. -Bilateral ankle swelling on admission, venous Doppler is negative for deep venous thrombosis, 2D echo with preserved ejection fraction. -Cardiomyopathy with preserved ejection fraction.. -History of right foot drop. Further recommendations based on clinical course. Plan of care discussed with Dr. Walden. Result Diagram: 01/03/19 0446 01/03/19445 Exam/Review of Systems Exam Vitals Vital Signs Date Temp Pulse Resp B/P (MAP) Pulse Ox O2 O2 Flow FiO2 Time Delivery Rate 01/05/19 98.0 79 18 106/53 92 Room Air 14:00 (70) Intake and Output 01/04/19 01/04/19 01/05/19 1515:00 23:00 07:00 IntakeIntake Total 540 ml BalanceBalance 540 ml Exam Constitutional: alert, oriented Respiratory: clear to auscultation Cardiovascular: nl pulses Gastrointestinal: soft, non-tender Extremities: normal pulses, other (Left ankle swelling, tenderness, no erythema) Neurological: nl mental status Skin: nl turgor Medications Medication Current Medications Morphine Sulfate (morphine) 2 mg Q4H PRN IV SEVERE PAIN LEVEL 7-10 Last administered on 12/29/18at 07:53; Admin Dose 2 MG; Start 12/27/18 at 07:30 Ondansetron HCl (Zofran Inj) 4 mg Q6H PRN IV NAUSEA AND/OR VOMITING; Start 12/27/18 at 07:30 Calcium Carbonate (Oyster Shell Calcium) 1.25 gm DAILY PO Last administered on 01/05/19 08:08; Admin Dose 1.25 GM; Start 12/28/18 at 09:00 Metoclopramide HCl (Reglan) 5 mg AC MEALS PO Last administered on 01/05/19 11:46; Admin Dose 5 MG; Start 12/28/18 at 07:00 Oxycodone HCl (Roxicodone) 15 mg Q6H PRN PO PAIN Last administered on 01/05/19 12:43; Admin Dose 15 MG; Start 12/27/18 at 22:30 Gabapentin (Neurontin) 300 mg TID PO Last administered on 01/05/19 12:41; Admin Dose 300 MG; Start 12/27/18 at 23:00 Levetiracetam (Keppra) 500 mg TID PO Last administered on 01/05/19 12:41; Admin Dose 500 MG; Start 12/27/18 at 23:00 Quetiapine Fumarate (Seroquel) 50 mg HS PO Last administered on 01/04/19 20:42; Admin Dose 50 MG; Start 12/27/18 at 23:00 Naproxen (Naprosyn) 500 mg BID PRN PO MILD PAIN LEVEL 1-3 Last administered on 12/29/18 15:00; Admin Dose 500 MG; Start 12/27/18 at 23:00 Polyethylene Glycol (Miralax) 17 gm DAILY GTB Last administered on 12/30/18 09:10; Admin Dose 17 GM; Start 12/28/18 at 11:00 Buspirone HCl (Buspar) 5 mg BID PO Last administered on 01/05/19 08:07; Admin Dose 5 MG; Start 12/29/18 at 12:00 Alprazolam (Xanax) 0.5 mg Q12H PRN PO ANXIETY Last administered on 01/04/19 20:42; Admin Dose 0.5 MG; Start 12/29/18 at 11:00 Escitalopram Oxalate (Lexapro) 20 mg DAILY PO Last administered on 01/05/19 08:08; Admin Dose 20 MG; Start 01/01/19 at 09:00 Risperidone (Risperdal) 3 mg BID PO Last administered on 01/05/19 08:08; Admin Dose 3 MG; Start 01/02/19 at 09:00 Enoxaparin Sodium (Lovenox) 40 mg DAILY SC Last administered on 01/05/19 08:10; Admin Dose 40 MG; Start 01/03/19 at 09:00 VINICIO HOUSTON Jan 05, 2019 15:29
--- NOTE | 2019-01-05 19:16 | CONS ---
DATE OF ADMISSION: 12/29/2018 DATE OF CONSULTATION: 01/05/2019 HISTORY OF PRESENT ILLNESS: The patient is a 43-year-old female who was admitted on 12/29/2018 when she was brought in to the emergency room by family members because of the altered mental status. 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 She also had an attack of seizure about a week prior to her admission. She obviously was complaining of pain and swelling involving her left ankle and orthopedic surgery wa s consulted. PHYSICAL EXAMINATION: My examination revealed a 43-year-old female who is not in any acute distress at this time. She was able to participate in the history taking and physical examination. There was a mild swelling around the left foot and ankle. There was minimal tenderness over the lateral aspec t of the left ankle. Range of motion of the left ankle was minimally limited and there were no gross instabilities in the left ankle. MRI scan of the left ankle was revealing a nondisplaced fracture involving the lateral malleolus, pos terior malleolus. It was also showing mild changes involving the base of the metatarsals or tarsal b ones, along with some signs of a soft tissue sprain. However, regular x-rays of the left ankle and f oot was essentially within normal limits. DIAGNOSTIC IMPRESSION: Undisplaced fracture involving the lateral malleolus and posterior malleolus of the left ankle along with the sprain involving multiple metacarpal carpal joints. RECOMMENDATIONS FOR MANAGEMENT: Will be immobilization of the left ankle and foot in a Cam walker, a nkle brace for about 4 to 6 weeks and this has been ordered. Dictated By: TORSTEN BAUGH/NTS Conf#: [id number] DID#: [id number] CC: PRANEETH THEODORE MD;*End*
[2019-01-05 19:31] VITALS: BP 101/45; PULSE 80; RESP 18
[2019-01-05] MEDS: ALPRAZOLAM 0.5 MG TAB PO PRN (20:58)
[2019-01-05] MEDS: QUETIAPINE 25 MG TAB PO SCH (20:59)
[2019-01-06 01:40] VITALS: BP 96/54; PULSE 70; RESP 18
[2019-01-06] MEDS: METOCLOPRAMIDE 5 MG TAB PO SCH ×3 (06:32→17:16)
[2019-01-06] MEDS: oxyCODONE 15 MG TAB PO PRN ×3 (06:32→18:41)
[2019-01-06 08:00] VITALS: BP 91/55; PULSE 84; RESP 18
[2019-01-06] MEDS: RISPERIDONE 2 MG TAB PO SCH ×2 (08:07→20:15)
[2019-01-06] MEDS: ESCITALOPRAM 20 MG TAB PO SCH (08:07)
[2019-01-06] MEDS: GABAPENTIN 300 MG CAP PO SCH ×3 (08:07→20:15)
[2019-01-06] MEDS: LEVETIRACETAM 500 MG TAB PO SCH ×3 (08:07→20:15)
[2019-01-06] MEDS: BUSPIRONE 5 MG TAB PO SCH ×2 (08:07→20:15)
[2019-01-06] MEDS: POLYETHYLENE GLYCOL 17 GM PACKET GTB SCH (08:08)
[2019-01-06] MEDS: CALCIUM CARBONATE 1.25 GM TAB PO SCH (08:08)
[2019-01-06] MEDS: ENOXAPARIN 40 MG/0.4 ML SYG SC SCH (08:11)
[2019-01-06 14:29] VITALS: BP 100/71; PULSE 84; RESP 18
[2019-01-06 19:25] VITALS: BP 125/55; PULSE 78; RESP 18
[2019-01-06] MEDS: QUETIAPINE 25 MG TAB PO SCH (20:15)
[2019-01-06] MEDS: ALPRAZOLAM 0.5 MG TAB PO PRN (20:15)
--- NOTE | 2019-01-06 22:35 | PN ---
Date/Time of Note Date/Time of Note DATE: 01/06/19 TIME: 22:27 Assessment/Plan VTE Prophylaxis Risk score (from [facility] [place])>0 risk: 4 SCD applied (from [facility] [place]): Yes SCD contraindicated: other Pharmacological prophylaxis: other Pharm contraindication: other Lines/Catheters IV Catheter Type (from [facility]): Peripheral IV Assessment/Plan Hospital Course Assessment/Plan - Thrombocytosis - oncology consult appreciated -Acute nondisplaced distal fibular and posterior malleolar fractures per MRI of the left foot. Pending evaluation by orthopedic surgeon Dr. Aaron. No weightbearing on left foot. -Altered mental status, resolved. Dr. Arita is following in neurology consultation. -Systemic inflammatory response syndrome with leukocytosis most likely secondary to left foot fracture. Blood cultures negative, chest x-ray is unremarkable. -Seizure disorder. Continue Keppra. -Schizoaffective disorder depressed type, post evaluation by ARTIE Petty in psychiatric consultation. Continue Risperdal, Xanax, BuSpar, Lexapro. -Bipolar disorder. Continue Lexapro. -Bilateral ankle swelling on admission, venous Doppler is negative for deep venous thrombosis, 2D echo with preserved ejection fraction. -Cardiomyopathy with preserved ejection fraction.. -History of right foot drop. Further recommendations based on clinical course. Plan of care discussed with Dr. Walden. Result Diagram: 01/03/1944501/03/19445 Subjective 24 Hr Interval Summary Free Text/Dictation 11:30 am Eyes: no complaints ENT: no complaints Respiratory: no complaints Cardiovascular: no complaints Gastrointestinal: no complaints Genitourinary: no complaints Musculoskeletal: no complaints Skin: no complaints Neurologic: no complaints Psychological: nl mood/affect Immunologic: no complaints Exam/Review of Systems Exam Vitals Vital Signs Date Temp Pulse Resp B/P (MAP) Pulse Ox O2 O2 Flow FiO2 Time Delivery Rate 01/06/19 98.1 78 18 125/55 93 19:25 (78) 01/06/19 Room Air 14:29 Intake and Output 01/05/19 01/05/19 01/06/19 1414:59 22:59 06:59 IntakeIntake Total 200 ml 200 ml BalanceBalance 200 ml 200 ml Constitutional: alert, well developed Psych: nl mood/affect Head: atraumatic Eyes: nl lids, nl sclera ENMT: nl external ears & nose Neck: non-tender Respiratory: clear to auscultation Cardiovascular: nl pulses, other (s1s2) Gastrointestinal: soft, non-tender Musculoskeletal: joint tenderness, range of motion Extremities: normal pulses Neurological: nl speech, other (alert/reponsive) Skin: nl turgor Lymph: nontender Medications Medication Current Medications Morphine Sulfate (morphine) 2 mg Q4H PRN IV SEVERE PAIN LEVEL 7-10 Last administered on 12/29/18 07:53; Admin Dose 2 MG; Start 12/27/18 at 07:30 Ondansetron HCl (Zofran Inj) 4 mg Q6H PRN IV NAUSEA AND/OR VOMITING; Start 12/27/18 at 07:30 Calcium Carbonate (Oyster Shell Calcium) 1.25 gm DAILY PO Last administered on 01/06/19 08:08; Admin Dose 1.25 GM; Start 12/28/18 at 09:00 Metoclopramide HCl (Reglan) 5 mg AC MEALS PO Last administered on 01/06/19 17:16; Admin Dose 5 MG; Start 12/28/18 at 07:00 Oxycodone HCl (Roxicodone) 15 mg Q6H PRN PO PAIN Last administered on 01/06/19 18:41; Admin Dose 15 MG; Start 12/27/18 at 22:30 Gabapentin (Neurontin) 300 mg TID PO Last administered on 01/06/19 20:15; Admin Dose 300 MG; Start 12/27/18 at 23:00 Levetiracetam (Keppra) 500 mg TID PO Last administered on 01/06/19 20:15; Admin Dose 500 MG; Start 12/27/18 at 23:00 Quetiapine Fumarate (Seroquel) 50 mg HS PO Last administered on 01/06/19 20:15; Admin Dose 50 MG; Start 12/27/18 at 23:00 Naproxen (Naprosyn) 500 mg BID PRN PO MILD PAIN LEVEL 1-3 Last administered on 12/29/18 15:00; Admin Dose 500 MG; Start 12/27/18 at 23:00 Polyethylene Glycol (Miralax) 17 gm DAILY GTB Last administered on 12/30/18 09:10; Admin Dose 17 GM; Start 12/28/18 at 11:00 Buspirone HCl (Buspar) 5 mg BID PO Last administered on 01/06/19 20:15; Admin Dose 5 MG; Start 12/29/18 at 12:00 Alprazolam (Xanax) 0.5 mg Q12H PRN PO ANXIETY Last administered on 01/06/19 20:15; Admin Dose 0.5 MG; Start 12/29/18 at 11:00 Escitalopram Oxalate (Lexapro) 20 mg DAILY PO Last administered on 01/06/19 08:07; Admin Dose 20 MG; Start 01/01/19 at 09:00 Risperidone (Risperdal) 3 mg BID PO Last administered on 01/06/19 20:15; Admin Dose 3 MG; Start 01/02/19 at 09:00 Enoxaparin Sodium (Lovenox) 40 mg DAILY SC Last administered on 01/06/19 08:11; Admin Dose 40 MG; Start 01/03/19 at 09:00 ANABELLE RAGLAND Jan 06, 2019 22:35
[2019-01-07 02:26] VITALS: BP 113/53; PULSE 81; RESP 18
[2019-01-07] MEDS: oxyCODONE 15 MG TAB PO PRN ×3 (06:19→18:19)
[2019-01-07] MEDS: METOCLOPRAMIDE 5 MG TAB PO SCH ×3 (06:19→18:18)
[2019-01-07] MEDS: POLYETHYLENE GLYCOL 17 GM PACKET GTB SCH (08:16)
[2019-01-07] MEDS: RISPERIDONE 2 MG TAB PO SCH ×2 (08:17→21:10)
[2019-01-07] MEDS: BUSPIRONE 5 MG TAB PO SCH ×2 (08:17→21:09)
[2019-01-07] MEDS: ESCITALOPRAM 20 MG TAB PO SCH (08:18)
[2019-01-07] MEDS: CALCIUM CARBONATE 1.25 GM TAB PO SCH (08:18)
[2019-01-07] MEDS: LEVETIRACETAM 500 MG TAB PO SCH ×3 (08:18→21:10)
[2019-01-07] MEDS: GABAPENTIN 300 MG CAP PO SCH ×3 (08:18→21:10)
[2019-01-07] MEDS: ENOXAPARIN 40 MG/0.4 ML SYG SC SCH (08:19)
[2019-01-07 08:29] VITALS: BP 94/52; PULSE 85; RESP 18
[2019-01-07 14:19] VITALS: BP 127/60; PULSE 80; RESP 18
--- NOTE | 2019-01-07 16:40 | PN ---
Date/Time of Note Date/Time of Note DATE: 01/07/19 TIME: 16:40 Assessment/Plan VTE Prophylaxis Risk score (from [facility] [place])>0 risk: 5 SCD applied (from [facility] [place]): No SCD contraindicated: other Pharmacological prophylaxis: other Pharm contraindication: other Lines/Catheters IV Catheter Type (from [facility]): Peripheral IV Assessment/Plan Hospital Course Assessment/Plan - Thrombocytosis - oncology consult appreciated -Acute nondisplaced distal fibular and posterior malleolar fractures per MRI of the left foot. Pending evaluation by orthopedic surgeon Dr. Aaron. No weightbearing on left foot. -Altered mental status, resolved. Dr. Arita is following in neurology consultation. -Systemic inflammatory response syndrome with leukocytosis most likely secondary to left foot fracture. Blood cultures negative, chest x-ray is unremarkable. -Seizure disorder. Continue Keppra. -Schizoaffective disorder depressed type, post evaluation by ARTIE Petty in psychiatric consultation. Continue Risperdal, Xanax, BuSpar, Lexapro. -Bipolar disorder. Continue Lexapro. -Bilateral ankle swelling on admission, venous Doppler is negative for deep venous thrombosis, 2D echo with preserved ejection fraction. -Cardiomyopathy with preserved ejection fraction.. -History of right foot drop. Further recommendations based on clinical course. Plan of care discussed with Dr. Walden. Result Diagram: 01/07/192 01/07/19 0442 Results 24hrs Laboratory Tests Test 01/07/19 04:42 White Blood Count 14.3 H Red Blood Count 4.74 Hemoglobin 11.3 L Hematocrit 40.5 Mean Corpuscular Volume 85.4 Mean Corpuscular Hemoglobin 23.8 L Mean Corpuscular Hemoglobin Concent 27.9 L Red Cell Distribution Width 19.1 H Platelet Count 840 H Mean Platelet Volume 10.6 H Immature Granulocytes % 0.400 Neutrophils % 60.8 Lymphocytes % 29.4 Monocytes % 5.9 Eosinophils % 2.9 Basophils % 0.6 Nucleated Red Blood Cells % 0.2 H Immature Granulocytes # 0.060 H Neutrophils # 8.7 H Lymphocytes # 4.2 H Monocytes # 0.8 Eosinophils # 0.4 Basophils # 0.1 Nucleated Red Blood Cells # 0.0 Sodium Level 140 Potassium Level 4.6 Chloride Level 101 Carbon Dioxide Level 33 H Anion Gap 6 Blood Urea Nitrogen 13 Creatinine 0.54 Est Glomerular Filtrat Rate mL/min > 60 Glucose Level 104 Calcium Level 9.1 Subjective 24 Hr Interval Summary Free Text/Dictation no events overnight Eyes: no complaints ENT: no complaints Respiratory: no complaints Cardiovascular: no complaints Gastrointestinal: no complaints Musculoskeletal: bone/joint pain, restricted range of motion Neurologic: no complaints Endocrine: no complaints Lymphatic: no complaints Psychological: nl mood/affect Exam/Review of Systems Exam Vitals Vital Signs Date Temp Pulse Resp B/P (MAP) Pulse Ox O2 O2 Flow FiO2 Time Delivery Rate 01/07/19 97.8 80 18 127/60 97 Room Air 14:19 (82) Intake and Output 01/06/19 01/06/19 01/07/19 1515:00 23:00 07:00 IntakeIntake Total 960 ml 236 ml 118 ml BalanceBalance 960 ml 236 ml 118 ml Constitutional: alert, well developed, obese Psych: nl mood/affect Head: normocephalic Eyes: nl lids, nl sclera, PERRL ENMT: nl external ears & nose Neck: non-tender Respiratory: clear to auscultation Cardiovascular: nl pulses, other (s1s2) Gastrointestinal: soft, non-tender Musculoskeletal: joint tenderness, range of motion Neurological: nl speech, other (alert/reposnsive) Lymph: nontender Results Results 24hrs Laboratory Tests Test 01/07/19 04:42 White Blood Count 14.3 H Red Blood Count 4.74 Hemoglobin 11.3 L Hematocrit 40.5 Mean Corpuscular Volume 85.4 Mean Corpuscular Hemoglobin 23.8 L Mean Corpuscular Hemoglobin Concent 27.9 L Red Cell Distribution Width 19.1 H Platelet Count 840 H Mean Platelet Volume 10.6 H Immature Granulocytes % 0.400 Neutrophils % 60.8 Lymphocytes % 29.4 Monocytes % 5.9 Eosinophils % 2.9 Basophils % 0.6 Nucleated Red Blood Cells % 0.2 H Immature Granulocytes # 0.060 H Neutrophils # 8.7 H Lymphocytes # 4.2 H Monocytes # 0.8 Eosinophils # 0.4 Basophils # 0.1 Nucleated Red Blood Cells # 0.0 Sodium Level 140 Potassium Level 4.6 Chloride Level 101 Carbon Dioxide Level 33 H Anion Gap 6 Blood Urea Nitrogen 13 Creatinine 0.54 Est Glomerular Filtrat Rate mL/min > 60 Glucose Level 104 Calcium Level 9.1 Medications Medication Current Medications Morphine Sulfate (morphine) 2 mg Q4H PRN IV SEVERE PAIN LEVEL 7-10 Last administered on 12/29/18 07:53; Admin Dose 2 MG; Start 12/27/18 at 07:30 Ondansetron HCl (Zofran Inj) 4 mg Q6H PRN IV NAUSEA AND/OR VOMITING; Start 12/27/18 at 07:30 Calcium Carbonate (Oyster Shell Calcium) 1.25 gm DAILY PO Last administered on 01/07/19 08:18; Admin Dose 1.25 GM; Start 12/28/18 at 09:00 Metoclopramide HCl (Reglan) 5 mg AC MEALS PO Last administered on 01/07/19 12:18; Admin Dose 5 MG; Start 12/28/18 at 07:00 Oxycodone HCl (Roxicodone) 15 mg Q6H PRN PO PAIN Last administered on 01/07/19 12:19; Admin Dose 15 MG; Start 12/27/18 at 22:30 Gabapentin (Neurontin) 300 mg TID PO Last administered on 01/07/19 12:18; Admin Dose 300 MG; Start 12/27/18 at 23:00 Levetiracetam (Keppra) 500 mg TID PO Last administered on 01/07/19 12:18; Admin Dose 500 MG; Start 12/27/18 at 23:00 Quetiapine Fumarate (Seroquel) 50 mg HS PO Last administered on 01/06/19 20:15; Admin Dose 50 MG; Start 12/27/18 at 23:00 Naproxen (Naprosyn) 500 mg BID PRN PO MILD PAIN LEVEL 1-3 Last administered on 12/29/18 15:00; Admin Dose 500 MG; Start 12/27/18 at 23:00 Polyethylene Glycol (Miralax) 17 gm DAILY GTB Last administered on 12/30/18 09:10; Admin Dose 17 GM; Start 12/28/18 at 11:00 Buspirone HCl (Buspar) 5 mg BID PO Last administered on 01/07/19 08:17; Admin Dose 5 MG; Start 12/29/18 at 12:00 Alprazolam (Xanax) 0.5 mg Q12H PRN PO ANXIETY Last administered on 7/19/19at 20:15; Admin Dose 0.5 MG; Start 12/29/18 at 11:00 Escitalopram Oxalate (Lexapro) 20 mg DAILY PO Last administered on 01/07/19at 08:18; Admin Dose 20 MG; Start 01/01/19 at 09:00 Risperidone (Risperdal) 3 mg BID PO Last administered on 01/07/19at 08:17; Admin Dose 3 MG; Start 01/02/19 at 09:00 Enoxaparin Sodium (Lovenox) 40 mg DAILY SC Last administered on 01/07/19at 08:19; Admin Dose 40 MG; Start 01/03/19 at 09:00 ANABELLE RAGLAND Jan 07, 2019 16:40
[2019-01-07 20:13] VITALS: BP 101/55; PULSE 85; RESP 18
[2019-01-07] MEDS: ALPRAZOLAM 0.5 MG TAB PO PRN (21:09)
[2019-01-07] MEDS: QUETIAPINE 25 MG TAB PO SCH (21:10)
[2019-01-08 01:39] VITALS: BP 106/60; PULSE 80; RESP 18
[2019-01-08] MEDS: METOCLOPRAMIDE 5 MG TAB PO SCH ×3 (06:11→18:22)
[2019-01-08] MEDS: oxyCODONE 15 MG TAB PO PRN ×3 (06:12→18:22)
[2019-01-08 07:22] VITALS: BP 113/53; PULSE 78; RESP 16
[2019-01-08] MEDS: GABAPENTIN 300 MG CAP PO SCH ×3 (08:24→20:30)
[2019-01-08] MEDS: ENOXAPARIN 40 MG/0.4 ML SYG SC SCH (08:24)
[2019-01-08] MEDS: POLYETHYLENE GLYCOL 17 GM PACKET GTB SCH (08:24)
[2019-01-08] MEDS: BUSPIRONE 5 MG TAB PO SCH ×2 (08:25→20:30)
[2019-01-08] MEDS: RISPERIDONE 2 MG TAB PO SCH ×2 (08:25→20:30)
[2019-01-08] MEDS: ESCITALOPRAM 20 MG TAB PO SCH (08:25)
[2019-01-08] MEDS: LEVETIRACETAM 500 MG TAB PO SCH ×3 (08:25→20:30)
[2019-01-08] MEDS: CALCIUM CARBONATE 1.25 GM TAB PO SCH (08:25)
[2019-01-08 14:16] VITALS: BP 105/52; PULSE 86; RESP 16
--- NOTE | 2019-01-08 14:31 | PN ---
Date/Time of Note Date/Time of Note DATE: 01/08/19 TIME: 14:29 Assessment/Plan VTE Prophylaxis Risk score (from [facility] [place]0 risk: 5 SCD applied (from [facility] [place]): No SCD contraindicated: other Pharmacological prophylaxis: other Pharm contraindication: other Lines/Catheters IV Catheter Type (from [facility]): Peripheral IV Assessment/Plan Hospital Course Assessment/Plan - Thrombocytosis - oncology consult appreciated -Acute nondisplaced distal fibular and posterior malleolar fractures per MRI of the left foot. Pending evaluation by orthopedic surgeon Dr. Aaron. No weightbearing on left foot. -Altered mental status, resolved. Dr. Arita is following in neurology consultation. -Systemic inflammatory response syndrome with leukocytosis most likely secondary to left foot fracture. Blood cultures negative, chest x-ray is unremarkable. -Seizure disorder. Continue Keppra. -Schizoaffective disorder depressed type, post evaluation by ARTIE Petty in psychiatric consultation. Continue Risperdal, Xanax, BuSpar, Lexapro. -Bipolar disorder. Continue Lexapro. -Bilateral ankle swelling on admission, venous Doppler is negative for deep venous thrombosis, 2D echo with preserved ejection fraction. -Cardiomyopathy with preserved ejection fraction.. -History of right foot drop. Further recommendations based on clinical course. Plan of care discussed with Dr. Walden. Result Diagram: 01/07/1944101/07/19441 Subjective 24 Hr Interval Summary Free Text/Dictation no new issues overnight c/o pain - left foot when puts weight; will get PT/walker Eyes: no complaints ENT: no complaints Respiratory: no complaints Cardiovascular: no complaints Gastrointestinal: no complaints Genitourinary: no complaints Musculoskeletal: bone/joint pain, restricted range of motion Skin: no complaints Neurologic: no complaints Endocrine: no complaints Lymphatic: no complaints Psychological: nl mood/affect Immunologic: no complaints Exam/Review of Systems Exam Vitals Vital Signs Date Temp Pulse Resp B/P (MAP) Pulse Ox O2 O2 Flow FiO2 Time Delivery Rate 01/08/19 98.5 86 16 105/52 94 Room Air 14:16 (69) Intake and Output 01/07/19 01/07/19 01/08/19 1515:00 23:00 07:00 IntakeIntake Total 480 ml 400 ml BalanceBalance 480 ml 400 ml Constitutional: alert, well developed, obese Psych: nl mood/affect Eyes: nl lids, nl sclera Neck: non-tender Respiratory: clear to auscultation Cardiovascular: nl pulses, other (s1s2) Gastrointestinal: soft, non-tender Musculoskeletal: joint tenderness, range of motion Extremities: normal pulses Neurological: other (alert/ responsive) Lymph: nontender Medications Medication Current Medications Morphine Sulfate (morphine) 2 mg Q4H PRN IV SEVERE PAIN LEVEL 7-10 Last adminis tered on 12/29/18 07:53; Admin Dose 2 MG; Start 12/27/18 at 07:30 Ondansetron HCl (Zofran Inj) 4 mg Q6H PRN IV NAUSEA AND/OR VOMITING; Start 12/27/18 at 07:30 Calcium Carbonate (Oyster Shell Calcium) 1.25 gm DAILY PO Last administered on 01/08/19 08:25; Admin Dose 1.25 GM; Start 12/28/18 at 09:00 Metoclopramide HCl (Reglan) 5 mg AC MEALS PO Last administered on 01/08/19 12:17; Admin Dose 5 MG; Start 12/28/18 at 07:00 Oxycodone HCl (Roxicodone) 15 mg Q6H PRN PO PAIN Last administered on 01/08/19 12:18; Admin Dose 15 MG; Start 12/27/18 at 22:30 Gabapentin (Neurontin) 300 mg TID PO Last administered on 01/08/19 12:17; Admin Dose 300 MG; Start 12/27/18 at 23:00 Levetiracetam (Keppra) 500 mg TID PO Last administered on 01/08/19 12:17; Admin Dose 500 MG; Start 12/27/18 at 23:00 Quetiapine Fumarate (Seroquel) 50 mg HS PO Last administered on 01/07/19 21:10; Admin Dose 50 MG; Start 12/27/18 at 23:00 Naproxen (Naprosyn) 500 mg BID PRN PO MILD PAIN LEVEL 1-3 Last administered on 12/29/18 15:00; Admin Dose 500 MG; Start 12/27/18 at 23:00 Polyethylene Glycol (Miralax) 17 gm DAILY GTB Last administered on 12/30/18 09:10; Admin Dose 17 GM; Start 12/28/18 at 11:00 Buspirone HCl (Buspar) 5 mg BID PO Last administered on 01/08/19 08:25; Admin Dose 5 MG; Start 12/29/18 at 12:00 Alprazolam (Xanax) 0.5 mg Q12H PRN PO ANXIETY Last administered on 01/07/19 21:09; Admin Dose 0.5 MG; Start 12/29/18 at 11:00 Escitalopram Oxalate (Lexapro) 20 mg DAILY PO Last administered on 01/08/19 08:25; Admin Dose 20 MG; Start 01/01/19 at 09:00 Risperidone (Risperdal) 3 mg BID PO Last administered on 01/08/19 08:25; Admin Dose 3 MG; Start 01/02/19 at 09:00 Enoxaparin Sodium (Lovenox) 40 mg DAILY SC Last administered on 01/08/19 08:24; Admin Dose 40 MG; Start 01/03/19 at 09:00 ANABELLE RAGLAND Jan 08, 2019 14:31
[2019-01-08 19:36] VITALS: BP 90/52; PULSE 79; RESP 16
[2019-01-08] MEDS: QUETIAPINE 25 MG TAB PO SCH (20:30)
[2019-01-08] MEDS: ALPRAZOLAM 0.5 MG TAB PO PRN (20:31)
[2019-01-09 02:00] VITALS: BP 109/53; PULSE 94; RESP 18
[2019-01-09 02:30] VITALS: PULSE 83
[2019-01-09] MEDS: oxyCODONE 15 MG TAB PO PRN ×3 (06:07→17:50)
[2019-01-09] MEDS: METOCLOPRAMIDE 5 MG TAB PO SCH ×3 (06:07→17:49)
[2019-01-09 07:16] VITALS: BP 102/55; PULSE 80; RESP 18
[2019-01-09] MEDS: GABAPENTIN 300 MG CAP PO SCH ×3 (08:45→20:26)
[2019-01-09] MEDS: RISPERIDONE 2 MG TAB PO SCH ×2 (08:45→20:26)
[2019-01-09] MEDS: POLYETHYLENE GLYCOL 17 GM PACKET GTB SCH (08:45)
[2019-01-09] MEDS: LEVETIRACETAM 500 MG TAB PO SCH ×3 (08:45→20:26)
[2019-01-09] MEDS: BUSPIRONE 5 MG TAB PO SCH ×2 (08:45→20:26)
[2019-01-09] MEDS: ESCITALOPRAM 20 MG TAB PO SCH (08:45)
[2019-01-09] MEDS: CALCIUM CARBONATE 1.25 GM TAB PO SCH (08:45)
[2019-01-09] MEDS: ENOXAPARIN 40 MG/0.4 ML SYG SC SCH (08:48)
[2019-01-09 13:16] VITALS: BP 107/61; PULSE 94; RESP 18
--- NOTE | 2019-01-09 17:29 | PN ---
Date/Time of Note Date/Time of Note DATE: 01/09/19 TIME: 17:29 Assessment/Plan VTE Prophylaxis Risk score ([facility]0 risk: 5 SCD applied ([facility]): Yes Pharmacological prophylaxis: LMWH Lines/Catheters IV C[facility]ter Type (from [facility]): Peripheral IV Assessment/Plan Hospital Course Patient is awake alert, slow progress with physical therapy due to fatigue continue PT with left ankle immobilization in cam walker and ankle brace. Assessment/Plan -Acute nondisplaced distal fibular and posterior malleolar fractures per MRI of the left foot. S/p evaluation by orthopedic surgeon Dr. Aaron. Continue immobilization of the left ankle and foot in a Cam walker, ankle brace for about 4 to 6 weeks. -Altered mental status, resolved. Dr. Arita is following in neurology consultation. -Systemic inflammatory response syndrome with leukocytosis most likely secondary to left foot fracture. Blood cultures negative, chest x-ray is unremarkable. -Seizure disorder. Continue Keppra. -Schizoaffective disorder depressed type, post evaluation by ARTIE Petty in psychiatric consultation. Continue Risperdal, Xanax, BuSpar, Lexapro. -Bipolar disorder. Continue Lexapro. -Bilateral ankle swelling on admission, venous Doppler is negative for deep venous thrombosis, 2D echo with preserved ejection fraction. -Cardiomyopathy with preserved ejection fraction.. -History of right foot drop. Further recommendations based on clinical course. Plan of care discussed with Dr. Walden. Result Diagram: 01/09/19 0459 01/09/19 0459 Results 24hrs Laboratory Tests Test 01/09/19 04:59 White Blood Count 16.3 H Red Blood Count 4.32 Hemoglobin 10.6 L Hematocrit 36.6 L Mean Corpuscular Volume 84.7 Mean Corpuscular Hemoglobin 24.5 L Mean Corpuscular Hemoglobin Concent 29.0 L Red Cell Distribution Width 18.6 H Platelet Count 691 H Mean Platelet Volume 11.6 H Immature Granulocytes % 0.400 Neutrophils % Segmented Neutrophils % (Manual) 65 Lymphocytes % Lymphocytes % (Manual) 28 Monocytes % Monocytes % (Manual) 4 Eosinophils % Eosinophils % (Manual) 3 Basophils % Nucleated Red Blood Cells % 0.1 H Immature Granulocytes # 0.060 H Neutrophils # Lymphocytes (Manual) 4.5 H Lymphocytes # Monocytes # Monocytes # (Manual) 0.6 Eosinophils # Basophils # Nucleated Red Blood Cells # Platelet Estimate INCREASED Polychromasia 1+ Poikilocytosis 2+ Anisocytosis 1+ Macrocytosis 1+ Sodium Level 142 Potassium Level 4.8 Chloride Level 101 Carbon Dioxide Level 36 H Anion Gap 5 Blood Urea Nitrogen 13 Creatinine 0.53 Est Glomerular Filtrat Rate mL/min > 60 Glucose Level 107 Calcium Level 8.9 Exam/Review of Systems Exam Vitals Vital Signs Date Temp Pulse Resp B/P (MAP) Pulse Ox O2 O2 Flow FiO2 Time Delivery Rate 01/09/19 97.8 94 18 107/61 94 13:16 (76) 01/09/19 Room Air 02:00 Intake and Output 01/08/19 01/08/19 01/09/19 1515:00 23:00 07:00 IntakeIntake Total 800 ml BalanceBalance 800 ml Exam Constitutional: alert, oriented Respiratory: clear to auscultation Cardiovascular: nl pulses Gastrointestinal: soft, non-tender Extremities: normal pulses, other (Left ankle swelling, tenderness, no erythema) Neurological: nl mental status Skin: nl turgor Results Results 24hrs Laboratory Tests Test 01/09/19 04:59 White Blood Count 16.3 H Red Blood Count 4.32 Hemoglobin 10.6 L Hematocrit 36.6 L Mean Corpuscular Volume 84.7 Mean Corpuscular Hemoglobin 24.5 L Mean Corpuscular Hemoglobin Concent 29.0 L Red Cell Distribution Width 18.6 H Platelet Count 691 H Mean Platelet Volume 11.6 H Immature Granulocytes % 0.400 Neutrophils % Segmented Neutrophils % (Manual) 65 Lymphocytes % Lymphocytes % (Manual) 28 Monocytes % Monocytes % (Manual) 4 Eosinophils % Eosinophils % (Manual) 3 Basophils % Nucleated Red Blood Cells % 0.1 H Immature Granulocytes # 0.060 H Neutrophils # Lymphocytes (Manual) 4.5 H Lymphocytes # Monocytes # Monocytes # (Manual) 0.6 Eosinophils # Basophils # Nucleated Red Blood Cells # Platelet Estimate INCREASED Polychromasia 1+ Poikilocytosis 2+ Anisocytosis 1+ Macrocytosis 1+ Sodium Level 142 Potassium Level 4.8 Chloride Level 101 Carbon Dioxide Level 36 H Anion Gap 5 Blood Urea Nitrogen 13 Creatinine 0.53 Est Glomerular Filtrat Rate mL/min > 60 Glucose Level 107 Calcium Level 8.9 Medications Medication Current Medications Morphine Sulfate (morphine) 2 mg Q4H PRN IV SEVERE PAIN LEVEL 7-10 Last administered on 12/29/18 07:53; Admin Dose 2 MG; Start 12/27/18 at 07:30 Ondansetron HCl (Zofran Inj) 4 mg Q6H PRN IV NAUSEA AND/OR VOMITING; Start 12/27/18 at 07:30 Calcium Carbonate (Oyster Shell Calcium) 1.25 gm DAILY PO Last administered on 01/09/19 08:45; Admin Dose 1.25 GM; Start 12/28/18 at 09:00 Metoclopramide HCl (Reglan) 5 mg AC MEALS PO Last administered on 01/09/19 10:41; Admin Dose 5 MG; Start 12/28/18 at 07:00 Oxycodone HCl (Roxicodone) 15 mg Q6H PRN PO PAIN Last administered on 01/09/19 12:18; Admin Dose 15 MG; Start 12/27/18 at 22:30 Gabapentin (Neurontin) 300 mg TID PO Last administered on 01/09/19 12:18; Admin Dose 300 MG; Start 12/27/18 at 23:00 Levetiracetam (Keppra) 500 mg TID PO Last administered on 01/09/19 12:18; Admin Dose 500 MG; Start 12/27/18 at 23:00 Quetiapine Fumarate (Seroquel) 50 mg HS PO Last administered on 01/08/19 20:30; Admin Dose 50 MG; Start 12/27/18 at 23:00 Naproxen (Naprosyn) 500 mg BID PRN PO MILD PAIN LEVEL 1-3 Last administered on 12/29/18 15:00; Admin Dose 500 MG; Start 12/27/18 at 23:00 Polyethylene Glycol (Miralax) 17 gm DAILY GTB Last administered on 12/30/18 09:10; Admin Dose 17 GM; Start 12/28/18 at 11:00 Buspirone HCl (Buspar) 5 mg BID PO Last administered on 01/09/19 08:45; Admin Dose 5 MG; Start 12/29/18 at 12:00 Alprazolam (Xanax) 0.5 mg Q12H PRN PO ANXIETY Last administered on 01/08/19 20:31; Admin Dose 0.5 MG; Start 12/29/18 at 11:00 Escitalopram Oxalate (Lexapro) 20 mg DAILY PO Last administered on 01/09/19 08:45; Admin Dose 20 MG; Start 01/01/19 at 09:00 Risperidone (Risperdal) 3 mg BID PO Last administered on 01/09/19 08:45; Admin Dose 3 MG; Start 01/02/19 at 09:00 Enoxaparin Sodium (Lovenox) 40 mg DAILY SC Last administered on 01/09/19 08:48; Admin Dose 40 MG; Start 01/03/19 at 09:00 VINICIO HOUSTON Jan 09, 2019 17:29
[2019-01-09 19:32] VITALS: BP 104/72; PULSE 81; RESP 17
[2019-01-09] MEDS: QUETIAPINE 25 MG TAB PO SCH (20:26)
[2019-01-09] MEDS: ALPRAZOLAM 0.5 MG TAB PO PRN (20:27)
[2019-01-10 01:52] VITALS: BP 109/68; PULSE 78; RESP 17
[2019-01-10] MEDS: METOCLOPRAMIDE 5 MG TAB PO SCH ×3 (06:22→18:19)
[2019-01-10] MEDS: oxyCODONE 15 MG TAB PO PRN ×3 (06:22→18:19)
[2019-01-10 07:53] VITALS: BP 101/55; PULSE 89; RESP 14
[2019-01-10] MEDS: POLYETHYLENE GLYCOL 17 GM PACKET GTB SCH (08:40)
[2019-01-10] MEDS: RISPERIDONE 2 MG TAB PO SCH ×2 (08:41→20:06)
[2019-01-10] MEDS: LEVETIRACETAM 500 MG TAB PO SCH ×3 (08:41→20:05)
[2019-01-10] MEDS: ESCITALOPRAM 20 MG TAB PO SCH (08:41)
[2019-01-10] MEDS: GABAPENTIN 300 MG CAP PO SCH ×3 (08:41→20:06)
[2019-01-10] MEDS: CALCIUM CARBONATE 1.25 GM TAB PO SCH (08:41)
[2019-01-10] MEDS: BUSPIRONE 5 MG TAB PO SCH ×2 (08:41→20:05)
[2019-01-10] MEDS: ENOXAPARIN 40 MG/0.4 ML SYG SC SCH (08:45)
[2019-01-10 14:00] VITALS: BP 95/54; PULSE 82; RESP 16
[2019-01-10 19:54] VITALS: BP 108/61; PULSE 86; RESP 18
[2019-01-10] MEDS: ALPRAZOLAM 0.5 MG TAB PO PRN (20:06)
[2019-01-10] MEDS: QUETIAPINE 25 MG TAB PO SCH (20:06)
== END 2019-01-10 20:30 | DRG 563 ==
LOC: E/R 19:40 → 6WM 12-27 01:57 → OBSVTOIN 12-29 07:54 → PP2 12-29 09:57 → 5EC 12-29 21:01
PROVIDERS: ADMIT Internal Medicine; ATTEND Internal Medicine
PROC: 2W3TXYZ Immobilization of Left Foot using Other Device (ICD-10-PCS; principal; 2019-01-06)
DX: S82.65XA Nondisplaced fracture of lateral malleolus of left fibula, initial encounter for closed fracture (principal); R65.10 Systemic inflammatory response syndrome (SIRS) of non-infectious origin without acute organ dysfunction; I42.9 Cardiomyopathy, unspecified; Z68.42 Body mass index [BMI] 45.0-49.9, adult; R41.82 Altered mental status, unspecified; F07.81 Postconcussional syndrome; G40.909 Epilepsy, unspecified, not intractable, without status epilepticus; D47.3 Essential (hemorrhagic) thrombocythemia; E66.9 Obesity, unspecified; F25.1 Schizoaffective disorder, depressive type; F31.9 Bipolar disorder, unspecified; I10 Essential (primary) hypertension; I25.2 Old myocardial infarction; M21.371 Foot drop, right foot; S93.432A Sprain of tibiofibular ligament of left ankle, initial encounter; W18.30XA Fall on same level, unspecified, initial encounter; Z90.49 Acquired absence of other specified parts of digestive tract; Z87.891 Personal history of nicotine dependence; Z79.899 Other long term (current) drug therapy; Z79.01 Long term (current) use of anticoagulants; Z79.82 Long term (current) use of aspirin
CPT/HCPCS: 36415; 70450; 71045; 73630; 73721; 80048; 80053; 80307; 81001; 81003; 83036; 83735; 84484; 85025; 87081; 87086; 93005; 93306; 93970; 97110; 97116; 97161; 97530; G0378; A4310; J1650; J2270; J2405; J7030; L4387

== ENCOUNTER 2019-04-13 10:32 | Inpatient (IN) | payer MEDICARE, OTHER ==
[~2019-04-13] VITALS: Ht 171.4 cm; Wt 142.1 kg
[~2019-04-13 10:32] MED LIST changes: +ALPR0.5T PO; -ASPI325T30 PO; +BUSP10TA2 PO; -BUSP15TA3 PO; +CALC500T11 PO; +CALC500T91 PO; -CIPR500T4 PO; -CYAN100080 PO; -ENOX40DI14 SC; +ENOX40DI2 SC; -FURO40SO PO; +GABA300C16 PO; -HYDR-3980 PO; -HYDR-4011 PO; -HYDR2TAB36 PO; -LEVE100018 PO; +LEVE500T8 PO; +METO5TAB58 PO; -METR500T PO; -MORP-58 PO; -MORP60TA37 PO; +NAPR500T8 PO; -OMEP40CA6 PO; -ONDA4TAB14 PO; +OXYC15TA PO; +OXYC15TA70 PO; -PANT40TA4 PO; +POLY17PO6 PO; -POTA20TA96 PO; +QUET50TA PO; +QUET50TA22 PO; +RISP2TAB3 PO; +RISP3TAB3 PO; -RISP4TAB2 PO; +SODI15OR8 PO
[2019-04-13] MEDS ORDERED: oxyCODONE 15 MG TAB PO ONE (12:30)
[2019-04-13] MEDS ORDERED: ONDANSETRON 4 MG INJ IV PRN (14:30)
[2019-04-13] MEDS ORDERED: ACETAMINOPHEN 325 MG TAB PO PRN (14:30)
[2019-04-13] MEDS: morphine 4 MG/ML VIAL IV PRN (20:26)
[2019-04-13] MEDS ORDERED: ONDANSETRON 4 MG TAB PO PRN (21:00)
[2019-04-13] MEDS ORDERED: ACETAMINOPHEN 500 MG TAB PO PRN (21:00)
[2019-04-13] MEDS ORDERED: ALPRAZOLAM 0.25 MG TAB PO PRN (21:00)
[2019-04-13 21:47] VITALS: BP 118/56; PULSE 81; RESP 18
[2019-04-13] MEDS: LEVETIRACETAM 500 MG TAB PO SCH (22:19)
[2019-04-13] MEDS: GABAPENTIN 300 MG CAP PO SCH (22:19)
[2019-04-13] MEDS: QUETIAPINE 25 MG TAB PO SCH (22:19)
[2019-04-13 23:00] VITALS: Ht 171.4 cm; Wt 142.1 kg
[2019-04-14] MEDS: RISPERIDONE 2 MG TAB PO SCH ×3 (00:25→20:03)
[2019-04-14] MEDS: ALPRAZOLAM 0.5 MG TAB PO PRN ×2 (00:25→21:20)
[2019-04-14] MEDS: BUSPIRONE 10 MG TAB PO SCH ×3 (00:25→20:03)
[2019-04-14 02:11] VITALS: BP 115/57; PULSE 108; RESP 18
[2019-04-14 03:00] VITALS: PULSE 106; RESP 16
[2019-04-14] MEDS: morphine 4 MG/ML VIAL IV PRN ×4 (03:24→20:05)
[2019-04-14] MEDS: GABAPENTIN 300 MG CAP PO SCH ×3 (05:30→21:20)
[2019-04-14 08:07] VITALS: BP 124/81; PULSE 100; RESP 19
[2019-04-14] MEDS ORDERED: NA POLYST SULFON 15 GM/60 ML BTL PO SCH ×2 (09:00→17:00)
[2019-04-14] MEDS: POLYETHYLENE GLYCOL 17 GM PACKET PO SCH (09:00)
[2019-04-14] MEDS: CALCIUM CARBONATE 1.25 GM TAB PO SCH (09:52)
[2019-04-14] MEDS: ESCITALOPRAM 10 MG TAB PO SCH (09:52)
[2019-04-14] MEDS: LEVETIRACETAM 500 MG TAB PO SCH ×3 (09:52→20:02)
[2019-04-14] MEDS: ENOXAPARIN 40 MG/0.4 ML SYG SC SCH (10:07)
[2019-04-14 14:00] VITALS: BP 113/61; PULSE 95; RESP 19
[2019-04-14 20:00] VITALS: BP 105/74; PULSE 74; RESP 18
[2019-04-14] MEDS: QUETIAPINE 25 MG TAB PO SCH (20:03)
[2019-04-15 02:00] VITALS: BP 122/69; PULSE 86; RESP 18
[2019-04-15] MEDS: morphine 4 MG/ML VIAL IV PRN ×5 (05:25→22:16)
[2019-04-15] MEDS: GABAPENTIN 300 MG CAP PO SCH ×3 (05:26→22:16)
[2019-04-15 09:17] VITALS: BP 109/59; PULSE 81; RESP 17
[2019-04-15] MEDS: POLYETHYLENE GLYCOL 17 GM PACKET PO SCH (09:44)
[2019-04-15] MEDS: RISPERIDONE 2 MG TAB PO SCH ×2 (09:44→20:37)
[2019-04-15] MEDS: CALCIUM CARBONATE 1.25 GM TAB PO SCH (09:44)
[2019-04-15] MEDS: LEVETIRACETAM 500 MG TAB PO SCH ×3 (09:44→20:37)
[2019-04-15] MEDS: BUSPIRONE 10 MG TAB PO SCH ×2 (09:45→20:37)
[2019-04-15] MEDS: ESCITALOPRAM 10 MG TAB PO SCH (09:45)
[2019-04-15] MEDS: ENOXAPARIN 40 MG/0.4 ML SYG SC SCH (09:49)
[2019-04-15 14:39] VITALS: BP 115/54; PULSE 98; RESP 18
[2019-04-15 20:30] VITALS: BP 115/66; PULSE 89; RESP 18
[2019-04-15] MEDS: ALPRAZOLAM 0.5 MG TAB PO PRN (20:36)
[2019-04-15] MEDS: QUETIAPINE 25 MG TAB PO SCH (20:37)
[2019-04-16 02:00] VITALS: BP 119/66; PULSE 91; RESP 20
[2019-04-16] MEDS: morphine 4 MG/ML VIAL IV PRN ×7 (02:21→20:04)
[2019-04-16] MEDS: GABAPENTIN 300 MG CAP PO SCH ×3 (06:26→21:39)
[2019-04-16 07:55] VITALS: BP 117/73; PULSE 92; RESP 16
[2019-04-16] MEDS: POLYETHYLENE GLYCOL 17 GM PACKET PO SCH (09:00)
[2019-04-16] MEDS: LEVETIRACETAM 500 MG TAB PO SCH ×3 (09:30→21:39)
[2019-04-16] MEDS: BUSPIRONE 10 MG TAB PO SCH ×2 (09:30→21:39)
[2019-04-16] MEDS: RISPERIDONE 2 MG TAB PO SCH ×2 (09:30→21:40)
[2019-04-16] MEDS: CALCIUM CARBONATE 1.25 GM TAB PO SCH (09:30)
[2019-04-16] MEDS: ESCITALOPRAM 10 MG TAB PO SCH (09:30)
[2019-04-16] MEDS: ENOXAPARIN 40 MG/0.4 ML SYG SC SCH (09:31)
[2019-04-16] MEDS: oxyCODONE 15 MG TAB PO PRN ×2 (12:11→21:40)
[2019-04-16 14:15] VITALS: BP 114/58; PULSE 90; RESP 16
[2019-04-16] MEDS ORDERED: morphine 4 MG/ML VIAL IM PRN (17:00)
[2019-04-16 20:00] VITALS: BP 115/70; PULSE 84; RESP 18
[2019-04-16] MEDS: QUETIAPINE 25 MG TAB PO SCH (21:39)
[2019-04-16] MEDS: ALPRAZOLAM 0.5 MG TAB PO PRN (21:42)
[2019-04-17] MEDS: morphine 4 MG/ML VIAL IV PRN ×6 (00:41→21:42)
[2019-04-17 02:00] VITALS: BP 119/76; PULSE 97; RESP 18
[2019-04-17] MEDS: GABAPENTIN 300 MG CAP PO SCH ×3 (05:02→21:43)
[2019-04-17 08:00] VITALS: BP 115/70; PULSE 87; RESP 18
[2019-04-17] MEDS: LEVETIRACETAM 500 MG TAB PO SCH ×3 (08:57→21:42)
[2019-04-17] MEDS: ESCITALOPRAM 10 MG TAB PO SCH (08:57)
[2019-04-17] MEDS: BUSPIRONE 10 MG TAB PO SCH ×2 (08:58→21:44)
[2019-04-17] MEDS: POLYETHYLENE GLYCOL 17 GM PACKET PO SCH (08:58)
[2019-04-17] MEDS: CALCIUM CARBONATE 1.25 GM TAB PO SCH (08:58)
[2019-04-17] MEDS: RISPERIDONE 2 MG TAB PO SCH ×2 (08:58→21:43)
[2019-04-17] MEDS: ENOXAPARIN 40 MG/0.4 ML SYG SC SCH (09:00)
[2019-04-17 14:21] VITALS: BP 112/62; PULSE 79; RESP 16
[2019-04-17 20:53] VITALS: BP 102/50; PULSE 85; RESP 16
[2019-04-17] MEDS: ALPRAZOLAM 0.5 MG TAB PO PRN (21:43)
[2019-04-17] MEDS: QUETIAPINE 25 MG TAB PO SCH (21:44)
[2019-04-18 02:53] VITALS: BP 137/74; PULSE 90; RESP 16
[2019-04-18 08:09] VITALS: BP 121/66; PULSE 100; RESP 18
[2019-04-18] MEDS: POLYETHYLENE GLYCOL 17 GM PACKET PO SCH (08:25)
[2019-04-18] MEDS: CALCIUM CARBONATE 1.25 GM TAB PO SCH (08:26)
[2019-04-18] MEDS: RISPERIDONE 2 MG TAB PO SCH ×2 (08:26→21:19)
[2019-04-18] MEDS: GABAPENTIN 300 MG CAP PO SCH ×3 (08:26→21:18)
[2019-04-18] MEDS: BUSPIRONE 10 MG TAB PO SCH ×2 (08:26→21:19)
[2019-04-18] MEDS: LEVETIRACETAM 500 MG TAB PO SCH ×3 (08:26→21:18)
[2019-04-18] MEDS: ENOXAPARIN 40 MG/0.4 ML SYG SC SCH (08:27)
[2019-04-18] MEDS: morphine 4 MG/ML VIAL IV PRN ×4 (08:28→21:20)
[2019-04-18] MEDS: ESCITALOPRAM 10 MG TAB PO SCH (08:32)
[2019-04-18 14:00] VITALS: BP 142/64; PULSE 80; RESP 17
[2019-04-18 20:00] VITALS: BP 123/55; PULSE 98; RESP 17
[2019-04-18] MEDS: QUETIAPINE 25 MG TAB PO SCH (21:18)
[2019-04-18] MEDS: ALPRAZOLAM 0.5 MG TAB PO PRN (22:05)
[2019-04-19 02:00] VITALS: BP 123/72; PULSE 91; RESP 17
[2019-04-19] MEDS: morphine 4 MG/ML VIAL IV PRN ×4 (06:26→19:25)
[2019-04-19] MEDS: GABAPENTIN 300 MG CAP PO SCH ×3 (06:26→21:41)
[2019-04-19 08:00] VITALS: BP 114/56; PULSE 84; RESP 20
[2019-04-19] MEDS: POLYETHYLENE GLYCOL 17 GM PACKET PO SCH (09:00)
[2019-04-19] MEDS: BUSPIRONE 10 MG TAB PO SCH ×2 (09:01→20:26)
[2019-04-19] MEDS: LEVETIRACETAM 500 MG TAB PO SCH ×3 (09:02→20:26)
[2019-04-19] MEDS: ESCITALOPRAM 10 MG TAB PO SCH (09:02)
[2019-04-19] MEDS: RISPERIDONE 2 MG TAB PO SCH ×2 (09:03→20:27)
[2019-04-19] MEDS: CALCIUM CARBONATE 1.25 GM TAB PO SCH (09:03)
[2019-04-19] MEDS: ENOXAPARIN 40 MG/0.4 ML SYG SC SCH (09:04)
[2019-04-19 14:00] VITALS: BP 117/72; PULSE 86; RESP 18
[2019-04-19] MEDS: QUETIAPINE 25 MG TAB PO SCH (20:27)
[2019-04-19 20:34] VITALS: BP 110/57; PULSE 85; RESP 16
[2019-04-19] MEDS: ALPRAZOLAM 0.5 MG TAB PO PRN (21:41)
[2019-04-20 03:16] VITALS: BP 111/63; PULSE 107; RESP 16
[2019-04-20] MEDS: GABAPENTIN 300 MG CAP PO SCH ×3 (05:54→21:26)
[2019-04-20] MEDS: morphine 4 MG/ML VIAL IV PRN ×4 (05:54→18:35)
[2019-04-20 08:00] VITALS: BP 108/80; PULSE 80; RESP 20
[2019-04-20] MEDS: POLYETHYLENE GLYCOL 17 GM PACKET PO SCH (09:00)
[2019-04-20] MEDS: ESCITALOPRAM 10 MG TAB PO SCH (09:12)
[2019-04-20] MEDS: LEVETIRACETAM 500 MG TAB PO SCH ×3 (09:12→20:09)
[2019-04-20] MEDS: BUSPIRONE 10 MG TAB PO SCH ×2 (09:13→20:09)
[2019-04-20] MEDS: CALCIUM CARBONATE 1.25 GM TAB PO SCH (09:13)
[2019-04-20] MEDS: RISPERIDONE 2 MG TAB PO SCH ×2 (09:13→20:09)
[2019-04-20] MEDS: ENOXAPARIN 40 MG/0.4 ML SYG SC SCH (09:15)
[2019-04-20 14:00] VITALS: BP 110/64; PULSE 76; RESP 18
[2019-04-20 20:00] VITALS: BP 106/61; PULSE 88; RESP 18
[2019-04-20] MEDS: QUETIAPINE 25 MG TAB PO SCH (20:09)
[2019-04-20] MEDS: oxyCODONE 15 MG TAB PO PRN (20:16)
[2019-04-20] MEDS: ALPRAZOLAM 0.5 MG TAB PO PRN (21:26)
== END 2019-04-20 22:44 | DRG 641 ==
LOC: E/R 10:32 → 5EC 14:11 → EDBEDREQ 14:51 → OBSVTOIN 04-14 10:39
PROVIDERS: ADMIT Internal Medicine; ATTEND Internal Medicine
DX: E87.5 Hyperkalemia (principal); I42.9 Cardiomyopathy, unspecified; Z68.42 Body mass index [BMI] 45.0-49.9, adult; E87.3 Alkalosis; F20.9 Schizophrenia, unspecified; E66.01 Morbid (severe) obesity due to excess calories; J20.9 Acute bronchitis, unspecified; D47.3 Essential (hemorrhagic) thrombocythemia; G40.909 Epilepsy, unspecified, not intractable, without status epilepticus; J45.909 Unspecified asthma, uncomplicated; I10 Essential (primary) hypertension; F41.9 Anxiety disorder, unspecified; F32.9 Major depressive disorder, single episode, unspecified; M54.10 Radiculopathy, site unspecified; D72.829 Elevated white blood cell count, unspecified; M19.90 Unspecified osteoarthritis, unspecified site; D64.9 Anemia, unspecified; M21.371 Foot drop, right foot; I25.2 Old myocardial infarction; Z90.49 Acquired absence of other specified parts of digestive tract; Z90.81 Acquired absence of spleen
CPT/HCPCS: 36415; 71045; 80048; 81001; 81003; 82043; 83735; 83930; 83935; 84100; 84133; 84155; 84300; 85025; 93005; 97110; 97116; 97161; 97530; G0378; J1650; J2270; J2405